=== PATIENT | female | born 1960 | race Caucasian/White ===

== ENCOUNTER → 2020-09-14 17:54 | Outpatient (CLI) | payer OTHER, SELFPAY ==
--- NOTE | ~2020-09-14 | MM_ITS ---
EXAMINATION: MM screening lidia BI w scarlet HISTORY: Screening mammogram TECHNIQUE: Craniocaudal and mediolateral oblique 3-D tomosynthesis images were obtained and synthetic 2-D images were generated. CAD analysis was submitted and interpreted. COMPARISON: 07/24/2019, 07/18/2018, 06/07/2017 bilateral digital screening mammogram examinations BREAST PARENCHYMAL COMPOSITION: There are scattered areas of fibroglandular density. FINDINGS: There is no evidence of suspicious mass, calcification, or architectural distortion to sugg est malignancy in either breast. There has been no suspicious interval change. IMPRESSION: 1. No mammographic evidence of malignancy. 2. Recommend routine screening mammography in one year. BI-RADS Category 1: Negative Reviewed, dictated and finalized at location B. 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
== END ==
PROVIDERS: PCP Internal Medicine; Visit Provider Obstetrics & Gynecology
DX: Z12.31 Encounter for screening mammogram for malignant neoplasm of breast (principal)
CPT/HCPCS: 77063; 77067

== ENCOUNTER 2021-09-24 01:11 | Day surgery (SDC) | payer BC, SELFPAY ==
[2021-09-11 13:00] VITALS: BMI 28.9
[2021-09-24 09:29] VITALS: BP 148/84; PULSE 96; RESP 20; TEMP 36.7; O2SAT 100; BMI 28.6
[2021-09-24] MEDS: LACTATED RINGERS 1,000 ML 150 ML IV CONT (09:37)
--- NOTE | 2021-09-24 09:42 | WPDANESEPPF ---
Anes - Initial Pre Proc Eval Procedure: Operation Date: 09/24/21 10:30 Proposed Procedures p Screening Colonoscopy - Tommy Cerda MD Date/Time: 09/24/21 09:42 Surgeon: Tommy Cerda MD Pre Op Diagnosis: family hx of colon ca, neoplasm screening Patient Data Age: 61 Gender: F Height: 1.63 m Weight: 75.8 kg Last Vital Signs Temp 36.7 C 09/24/21 09:29 Pulse 96 09/24/21 09:29 Resp 20 09/24/21 09:29 BP 148/84 H 09/24/21 09:29 Pulse Ox 100 09/24/21 09:29 Allergies Allergy/AdvReac Type Severity Reaction Status Date / Time Quinolones Allergy Unknown unknown Verified 09/24/21 09:28 sulfamethizole Allergy Unknown unknown Verified 09/24/21 09:28 Home Medications Medication Instructions Recorded Confirmed Type ibrutinib 420 mg tablet 420 mg PO DAILY 11/04/19 09/11/21 History fenofibrate nanocrystallized 145 145 mg PO DAILY #90 tablet 08/07/20 09/11/21 Rx mg tablet omeprazole 20 mg capsule,delayed 20 mg PO DAILY #90 cap 08/29/20 09/11/21 Rx release cholestyramine-aspartame 4 gram See Rx Instructions .ROUTE 08/10/21 09/11/21 Rx oral powder .COMPLEX #239.4 g lysine 500 mg tablet 500 mg PO DAILY 08/17/21 09/11/21 History lovastatin 40 mg tablet 40 mg PO DAILY #90 tablet 08/30/21 09/11/21 Rx azelastine 2 spray NASAL Q12H PRN 09/11/21 09/11/21 History loratadine [Claritin] 10 mg PO DAILY 09/11/21 09/11/21 History nitrofurantoin monohyd/m-cryst 100 mg PO DAILY PRN 09/11/21 09/11/21 History [Macrobid] Patient hx anesthesia problems: none Family hx anesthesia problems: none Results Review: All pre-operative results and documents have been reviewed as part of the pre-operative evaluation. [facility] Past Medical History Medical History Scoliosis (and kyphoscoliosis), idiopathic Surgical History Surgical History (Updated 09/24/21 @ 09:45 by Dylon Hernández MD) H/O ovarian cystectomy History of cholecystectomy History of lumbar surgery Family History Family History Sibling Family history of elevated blood lipids Mother Cerebrovascular accident Patient's mother is Father Family history of malignant neoplasm Carcinoma of colon Social History Social History Smoking status: Never smoker Alcohol intake: current Drinks per week: 1 Alcohol use details: 1-2 drinks monthly Substance use: never Substance use type: does not use Living arrangements: with family Spiritual care concerns: No Anes - Eval Final PreProcedure Day of Procedure 09/24/21 09:42 Patient weight: overweight Heart: regular rate and rhythm Lungs: clear to auscultation Airway: Mallampati scale class II Neurological: alert and oriented Last oral intake: >/= 8 hours ASA classification: III Anesthetic plan: proceed Anesthesia type and monitoring: general GIVS and standard monitoring Results Review: All pre-operative results and documents have been reviewed as part of the pre-operative evaluation. Informed Consent: The patient's anesthetic plan and its attendant risks and benefits were discussed with the patient/family/POA. Questions were solicited and answers provided to the satisfaction of the patient/family/POA.
--- NOTE | 2021-09-24 09:53 | WPDGICN ---
Assessment and Plan Assessment and plan (1) Family history of colon cancer in father: Code(s): Z80.0 - Family history of malignant neoplasm of digestive organs Status: Acute Assessment and Plan: Patient is 4 father had colon cancer. Anticipate follow-up colonoscopy at 5 year intervals in the future. (2) CLL (chronic lymphocytic leukemia): Code(s): C91.10 - Chronic lymphocytic leukemia of B-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 Status: Acute GI Consult Note Consult date/time: 09/24/21 09:53 HPI: Madisno Lazrao is a 61 year old female Presents for screening colonoscopy. Patient's current weight appetite and bowel movements are normal. She denies abdominal pain. She has had no bleeding. Family history is significant that her father had colon cancer. Patient has had several previous colonoscopies. Most recently [address] Trejo. Additionally patient currently is undergoing treatment for CLL and felt to be adequately treated but monitor by Oncology. Review of Systems Review of Systems: All systems reviewed & are unremarkable except as noted in HPI and below PMFSH Past Medical History Medical History (Updated 09/24/21 @ 09:55 by Tommy Cerda MD) Scoliosis (and kyphoscoliosis), idiopathic Surgical History Surgical History (Updated 09/24/21 @ 09:45 by Dylon Hernández MD) H/O ovarian cystectomy History of cholecystectomy History of lumbar surgery Family History Family History Sibling Family history of elevated blood lipids Mother Cerebrovascular accident Patient's mother is Father Family history of malignant neoplasm Carcinoma of colon Social History Social History Smoking status: Never smoker Alcohol intake: current Drinks per week: 1 Alcohol use details: 1-2 drinks monthly Substance use: never Substance use type: does not use Living arrangements: with family Spiritual care concerns: No Meds Home Medications and Allergies Home Medications Medication Instructions Recorded Confirmed Type ibrutinib 420 mg tablet 420 mg PO DAILY 11/04/19 09/11/21 History fenofibrate nanocrystallized 145 145 mg PO DAILY #90 tablet 08/07/20 09/11/21 Rx mg tablet omeprazole 20 mg capsule,delayed 20 mg PO DAILY #90 cap 08/29/20 09/11/21 Rx release cholestyramine-aspartame 4 gram See Rx Instructions .ROUTE 08/10/21 09/11/21 Rx oral powder .COMPLEX #239.4 g lysine 500 mg tablet 500 mg PO DAILY 08/17/21 09/11/21 History lovastatin 40 mg tablet 40 mg PO DAILY #90 tablet 08/30/21 09/11/21 Rx azelastine 2 spray NASAL Q12H PRN 09/11/21 09/11/21 History loratadine [Claritin] 10 mg PO DAILY 09/11/21 09/11/21 History nitrofurantoin monohyd/m-cryst 100 mg PO DAILY PRN 09/11/21 09/11/21 History [Macrobid] Allergies Allergy/AdvReac Type Severity Reaction Status Date / Time Quinolones Allergy Unknown unknown Verified 09/24/21 09:28 sulfamethizole Allergy Unknown unknown Verified 09/24/21 09:28 Vital Signs Vital Signs - 24 hr 09/24/21 09:29 Temperature 98.0 F Pulse Rate 96 Respiratory Rate 20 Blood Pressure 148/84 H Pulse Oximetry 100 Exam Narrative: Physical exam reveals patient to be alert. Vital signs stable. HEENT exam is unremarkable. Patient is anicteric. Lungs are clear to auscultation and percussion. Heart is without murmur or extra sounds. Abdominal exam bowel sounds are present soft nontender with no organomegaly. Digital external rectal exam is normal.
[2021-09-24 10:18] VITALS: BP 107/74; PULSE 80; RESP 22; O2SAT 100
[2021-09-24 10:28] VITALS: BP 123/61; PULSE 80; RESP 18; O2SAT 100
[2021-09-24 10:38] VITALS: BP 143/88; PULSE 72; RESP 18; O2SAT 100
== END 2021-09-24 10:52 | disposition home or self-care (01) ==
PROVIDERS: PCP Internal Medicine; Visit Provider Internal Medicine Gastroenterology
PROC: 0DJD8ZZ Inspection of Lower Intestinal Tract, Via Natural or Artificial Opening Endoscopic (ICD-10-PCS; CPT 45378; principal; 2021-09-24 10:30)
DX: Z12.11 Encounter for screening for malignant neoplasm of colon (principal); K64.8 Other hemorrhoids; Z80.0 Family history of malignant neoplasm of digestive organs; C91.10 Chronic lymphocytic leukemia of B-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
CPT/HCPCS: 45378; J2704; J7120

== ENCOUNTER → 2021-09-25 12:33 | Outpatient (CLI) | payer BC, SELFPAY ==
--- NOTE | ~2021-09-25 | MM_ITS ---
EXAMINATION: MM screening [facility] BI w scarlet HISTORY: Screening TECHNIQUE: Craniocaudal and mediolateral oblique 3-D tomosynthesis images were obtained and synthetic 2-D images were generated. CAD analysis was submitted and interpreted. COMPARISON: Comparison to multiple prior studies sequentially, with oldest reviewed study dated 04/2015. BREAST PARENCHYMAL COMPOSITION: There are scattered areas of fibroglandular density. FINDINGS: There is no evidence of suspicious mass, calcification, or architectural distortion to sugg est malignancy in either breast. There has been no suspicious interval change. IMPRESSION: 1. No mammographic evidence of malignancy. 2. Recommend routine screening mammography in one year. BI-RADS Category 1: Negative Reviewed, dictated and finalized at location A. 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
== END ==
PROVIDERS: PCP Internal Medicine; Visit Provider Obstetrics & Gynecology
DX: Z12.31 Encounter for screening mammogram for malignant neoplasm of breast (principal)
CPT/HCPCS: 77063; 77067

== ENCOUNTER 2022-01-31 11:05 | Outpatient (CLI) | payer BC, SELFPAY ==
--- NOTE | ~2022-01-31 | US_ITS ---
EXAMINATION: US soft tissue abdomen DATE: 01/31/2022 11:35 INDICATION: Chronic lymphocytic leukemia B-cell type in relapse. Right abdominal lump. TECHNIQUE: Multiple grayscale and Doppler ultrasound images of the abdomen were obtained. COMPARISON: CT abdomen and pelvis 06/12/2017 FINDINGS: There is no abnormal mass in the abdominal wall to the right of the umbilicus in the patien t's area of concern. IMPRESSION: 1. No abnormal mass in the abdominal wall to the right of the umbilicus in the patient's area of conc jose luis. Reviewed, dictated and finalized at location A. IMPRESSION: 1. No abnormal mass in the abdominal wall to the right of the umbilicus in the patient's area of concern.
== END 2022-01-31 11:06 | disposition home or self-care (01) ==
PROVIDERS: PCP Internal Medicine; Visit Provider Internal Medicine Medical Oncology
DX: C91.12 Chronic lymphocytic leukemia of B-cell type in relapse (principal)
CPT/HCPCS: 76705

== ENCOUNTER → 2022-03-13 12:29 | Outpatient (CLI) | payer BC, SELFPAY ==
--- NOTE | ~2022-03-13 | DEXA_ITS ---
Bone Density Report Name: MOI GRANT Age: 61 Sex: Female Ethnicity: White Date of : 1960 Indication: osteopenia; height loss; cancer; postmenopausal Referring Provider: Jeronimo, Ina Moody Study: Bone densitometry was performed. Exam Date: March 13, 2022 Accession number: [id number] Bone Density: Region BMD T-score Z-score Classification AP Spine (L1-L4) 0.927 -1.1 0.5 Osteopenia Femoral Neck (Left) 0.701 -1.3 0.1 Osteopenia Total Hip (Left) 0.745 -1.6 -0.5 Osteopenia Femoral Neck (Right) 0.712 -1.2 0.2 Osteopenia Total Hip (Right) 0.771 -1.4 -0.3 Osteopenia Total Hip Mean 0.758 -1.5 -0.4 Osteopenia World Health Organization criteria for BMD impression classify patients as: Normal (T-score at or above -1.0), Osteopenia (T-score between -1.0 and -2.5), or Osteoporosis (T-score at or below -2.5). 10-year Fracture Risk(1): Major Osteoporotic Fracture 7.8% Hip Fracture 0.6% Reported Risk Factors: [place] (), Neck BMD=0.701, BMI=30.6 (1) FRAX(R) Version 3.08. Fracture probability calculated for an untreated patient. Fracture probability may be lower if the patient has received treatment. Previous Exams: Region Exam Age BMD T-score BMD Change BMD Change Date g/cm2 vs Baseline vs Previous AP Spine(L1-L4) 03/13/2022 61 0.927 -1.1 -0.011 -0.011 05/22/2019 59 0.938 -1.0 Total Hip(Left) 03/13/2022 61 0.745 -1.6 -0.032* -0.032* 05/22/2019 59 0.778 -1.3 Total Hip(Right) 03/13/2022 61 0.771 -1.4 -0.029* -0.029* 05/22/2019 59 0.800 -1.2 *Denotes significance at 95% confidence level, LSC for AP Spine = 0.022 g/cm2, LSC for Total Hip = 0.027 g/cm2 Clinical Information Provided by Patient: Has used the following medications: Vitamin D, FANTASMAV Has the following medical conditions: Cancer, CLL Leukemia Patient maximum height was 64 Menopause Age: 48 No regular weight bearing exercise Drinks caffeinated beverages Onset of menses at age 11 Number of children 3 Impression: The patient has low bone mass, based on the Left Total Hip T-score. The patient has an estimated ten-year risk of hip fracture of 0.6% and an estimated ten-year risk of major fracture of 7.8%, based on the WHO FRAX algorithm. The BMD for the Total Hip(Left) decreased, changing by -0.032 since the last DXA exam. The BMD for the Total Hip(Right) decreased, changing by -0.029 since the last DXA exam.
== END ==
PROVIDERS: PCP Internal Medicine; Visit Provider Nurse Practitioner Obstetrics & Gynecology
DX: Z78.0 Asymptomatic menopausal state (principal); M85.88 Other specified disorders of bone density and structure, other site; M85.852 Other specified disorders of bone density and structure, left thigh; M85.851 Other specified disorders of bone density and structure, right thigh
CPT/HCPCS: 77080

== ENCOUNTER → 2023-01-28 11:16 | Outpatient (CLI) | payer BC, SELFPAY ==
--- NOTE | ~2023-01-28 | MM_ITS ---
EXAMINATION: MM screening lidia BI w scarlet HISTORY: Screening mammogram TECHNIQUE: Craniocaudal and mediolateral oblique 3-D tomosynthesis images were obtained and synthetic 2-D images were generated. CAD analysis was submitted and interpreted. COMPARISON: 09/17/2021 09/14/2026 BREAST PARENCHYMAL COMPOSITION: There are scattered areas of fibroglandular density. FINDINGS: No suspicious mass, calcification, or architectural distortion are identified in either noelle ast to suggest malignancy. There has been no suspicious interval change. IMPRESSION: 1. No mammographic evidence of malignancy. 2. Recommend routine screening mammography in one year. BI-RADS Category 1: Negative Reviewed, dictated and finalized at location A.
== END ==
PROVIDERS: PCP Family Medicine; Visit Provider Nurse Practitioner Obstetrics & Gynecology
DX: Z12.31 Encounter for screening mammogram for malignant neoplasm of breast (principal)
CPT/HCPCS: 77063; 77067

== ENCOUNTER 2023-03-28 14:39 | Outpatient (CLI) | payer BC, SELFPAY ==
[2023-03-28 15:24] LABS: Basophils Absolute Auto 0.1 K/mm3 (0.0-0.1); Basophils Percent Auto 0.7 % (0.2-1.2); Eosinophils Absolute Auto 0.1 K/mm3 (0-0.3); Eosinophils Percent Auto 1.1 % (0-4.4); Hematocrit 43.4 % (37.0-47.0); Hemoglobin 13.4 g/dL (12.0-15.0); Immature Granulocyte Absolute 0.06 K/mm3 (0.00-0.031); Immature Granulocyte Percent A 0.5 % (0-0.5); Lymphocytes Absolute Auto 3.06 K/mm3 (0.9-3.2); Lymphocytes Percent Auto 27.3 % (18.3-44.2); Mean Corpuscular HGB Conc 30.9 g/dl (32-36); Mean Corpuscular Hemoglobin 27.6 pg (26-34); Mean Corpuscular Volume 89.3 fl (80-100); Mean Platelet Volume 12.9 fl (7.4-10.4); Monocytes Percent Auto 8.7 % (2.6-8.5); Neutrophils Absolute Auto 6.9 K/mm3 (1.3-6.7); Neutrophils Percent Auto 61.7 % (45.5-73.1); Platelet Count Result 207 k/mm3 (150-375); Red Blood Count 4.86 M/mm3 (4.2-5.4); Red Cell Distribution Width 14.4 % (11.5-14.5); White Blood Count 11.2 K/mm3 (4.5-10.0)
[2023-03-28 16:06] LABS: D Dimer < 0.27 ug/mL (<0.48)
[2023-03-28 18:52] LABS: Alanine Aminotransferase 40 U/L (6-35); Albumin Level 4.6 g/dL (3.5-5.1); Alkaline Phosphatase 57 U/L (38-126); Anion Gap 7 mmol/L (8-16); Aspartate Amino Transferase 45 U/L (14-36); Bilirubin,Total 0.5 mg/dL (0.2-1.3); Blood Urea Nitrogen 13 mg/dL (7-17); Calcium 9.6 mg/dL (8.4-10.2); Carbon Dioxide 30 mmol/L (22-30); Chloride 105 mmol/L (98-107); Cholesterol 180 mg/dL (0-200); Estimated Glomerular Filt Rate > 60; Glucose 80 mg/dL (65-110); HDL Direct 69 mg/dL; Lipase 146 U/L (23-300); Sodium 142 mmol/L (137-145); Triglycerides 202 mg/dL (<150)
[2023-03-28 19:03] LABS: LDL Cholesterol Direct 86 mg/dL
== END 2023-03-28 14:40 | disposition home or self-care (01) ==
LOC: ANHGOSHLAB 14:40
PROVIDERS: PCP Family Medicine; Visit Provider Family Medicine
DX: R53.83 Other fatigue (principal); R11.10 Vomiting, unspecified; M79.89 Other specified soft tissue disorders; Z13.220 Encounter for screening for lipoid disorders; Z13.228 Encounter for screening for other metabolic disorders; Z13.29 Encounter for screening for other suspected endocrine disorder
CPT/HCPCS: 36415; 80053; 80061; 83690; 84443; 85025; 85380

== ENCOUNTER 2023-06-06 08:43 | Outpatient (NON) | payer BC, SELFPAY ==
[2023-06-12 18:53] LABS: Calprotectin, Stool 317 mcg/g
[2023-06-15 14:38] LABS: Pancreatic Elastase, Stool >500 mcg/g
== END 2023-06-06 08:44 | disposition home or self-care (01) ==
PROVIDERS: PCP Family Medicine; Visit Provider Nurse Practitioner Family
DX: R19.7 Diarrhea, unspecified (principal); R11.2 Nausea with vomiting, unspecified
CPT/HCPCS: 82653; 83993

== ENCOUNTER 2023-06-24 02:59 | Day surgery (SDC) | payer BC, SELFPAY ==
[2023-06-16 14:47] VITALS: BMI 26.5
[2023-06-24 12:40] VITALS: BP 176/79; PULSE 70; RESP 20; TEMP 36.3; O2SAT 100; BMI 25.7
--- NOTE | 2023-06-24 12:42 | WPDANESEPPF ---
Anes - Initial Pre Proc Eval Procedure: Operation Date: 06/24/23 13:30 Proposed Procedures p Esophagogastroduodenoscopy - Tommy Cerda MD Date/Time: 06/24/23 12:42 Surgeon: Tommy Cerda MD Pre Op Diagnosis: Gastro-esophageal reflux disease w/o esophagitis Patient Data Age: 63 Gender: F Height: 1.6 m Weight: 65.8 kg Last Vital Signs Temp 97.3 F L 06/24/23 12:40 Pulse 70 06/24/23 12:40 Resp 20 06/24/23 12:40 BP 176/79 H 06/24/23 12:40 Pulse Ox 100 06/24/23 12:40 O2 Del Method Room Air 06/24/23 12:40 Allergies Allergy/AdvReac Type Severity Reaction Status Date / Time Quinolones Allergy Intermediate Itching Verified 06/24/23 12:37 sulfamethizole Allergy Intermediate Nausea and Verified 06/24/23 12:37 Vomiting Home Medications Medication Instructions Recorded Confirmed Type ibrutinib 420 mg tablet (Imbruvica) 420 mg PO DAILY 11/04/19 06/16/23 History azelastine 137 mcg (0.1 %) nasal 2 spray intranasal Q12H PRN Nasal 09/11/21 06/16/23 History spray aerosol Congestion loratadine 10 mg tablet (Claritin) 10 mg PO DAILY 09/11/21 06/16/23 History fenofibrate nanocrystallized 145 145 mg PO DAILY #90 tabs 03/21/22 06/16/23 Rx mg tablet (Tricor) cholestyramine-aspartame 4 gram See Rx Instructions .Route 01/07/23 06/16/23 Rx oral powder (Cholestyramine Light) .COMPLEX #239.4 grams cholecalciferol (vitamin D3) 50 50 mcg PO DAILY 03/28/23 06/16/23 History mcg (2,000 unit) capsule multivitamin 1 tablet PO DAILY 03/28/23 06/16/23 History lovastatin 40 mg tablet 40 mg PO DAILY #90 tabs 04/11/23 06/16/23 Rx omeprazole 20 mg capsule,delayed 20 mg PO DAILY #90 caps 04/25/23 06/16/23 Rx release Patient hx anesthesia problems: none Family hx anesthesia problems: none Results Review: All pre-operative results and documents have been reviewed as part of the pre-operative evaluation. [facility] Past Medical History Medical History (Updated 06/16/23 @ 07:52 by Maribeth Love APRN) Elevated fecal calprotectin Nausea and vomiting Scoliosis (and kyphoscoliosis), idiopathic Surgical History Surgical History H/O ovarian cystectomy History of cholecystectomy History of lumbar surgery Family History Family History Sibling Family history of elevated blood lipids Mother Cerebrovascular accident Patient's mother is Father Family history of malignant neoplasm Carcinoma of colon Social History Social History Smoking status: Never smoker Alcohol intake: current Drinks per week: 1 Alcohol use details: 1-2 drinks monthly Substance use: never Substance use type: does not use Lack of Transportation: No Lack of Food: Never True Current Housing: I Have Housing Concerned About Future Housing: No Difficulty Paying Gas/Electric Bills: No Difficulty Paying for Meds: No Currently Unemployed: No Difficulty w/ Childcare or Family Care: No Living arrangements: with family Spiritual care concerns: No Anes - Eval Final PreProcedure Day of Procedure 06/24/23 12:42 Patient weight: normal Heart: regular rate and rhythm Lungs: clear to auscultation Airway: Mallampati scale class II Neurological: alert and oriented Last oral intake: >/= 8 hours ASA classification: III Emergent: no Anesthetic plan: proceed Anesthesia type and monitoring: general GIVS and standard monitoring Results Review: All pre-operative results and documents have been reviewed as part of the pre-operative evaluation. Informed Consent: The patient's anesthetic plan and its attendant risks and benefits were discussed with the patient/family/POA. Questions were solicited and answers provided to the satisfaction of the patient/family/POA.
--- NOTE | 2023-06-24 12:50 | WPDHPUPDATE1 ---
History and Physical Update Update Date/Time: 06/24/23 12:50 History and Physical has been reviewed, including an updated exam of the patient. There are NO changes in the patient's condition. Risks, benefits, and alternatives have been discussed and questions answered. Patient agrees to proceed with procedure.
[2023-06-24] MEDS: LACTATED RINGERS 1,000 ML 150 ML IV CONT (12:53)
[2023-06-24 14:40] VITALS: BP 116/80; PULSE 75; RESP 15; O2SAT 98
[2023-06-24 14:50] VITALS: BP 128/74; PULSE 71; RESP 24; O2SAT 98
[2023-06-24 15:12] VITALS: BP 131/79; PULSE 70; RESP 13; O2SAT 99
--- NOTE | 2023-06-24 15:34 | SUR.PHASEII ---
[address] Cerda prior to discharge
== END 2023-06-24 15:34 | disposition home or self-care (01) ==
PROVIDERS: PCP Family Medicine; Visit Provider Internal Medicine Gastroenterology
PROC: 0DJ08ZZ Inspection of Upper Intestinal Tract, Via Natural or Artificial Opening Endoscopic (ICD-10-PCS; CPT 43235; principal; 2023-06-24 13:30)
DX: Q39.4 Esophageal web (principal); K21.9 Gastro-esophageal reflux disease without esophagitis; R19.7 Diarrhea, unspecified; Z80.0 Family history of malignant neoplasm of digestive organs
CPT/HCPCS: 43450; 43239; 88305; J2001; J2704; J7120

== ENCOUNTER 2023-08-07 01:59 | Day surgery (SDC) | payer BC, SELFPAY ==
[2023-07-25 13:23] VITALS: BMI 25.4
--- NOTE | 2023-08-05 09:53 | SUR.PREOP ---
Patient called regarding upcoming procedure. Reviewed preop instructions, appointment times, and procedure prep.
[2023-08-07 07:07] VITALS: BP 156/75; PULSE 86; RESP 18; TEMP 36.2; O2SAT 99; BMI 25.9
[2023-08-07] MEDS: LACTATED RINGERS 1,000 ML 150 ML IV CONT (07:35)
--- NOTE | 2023-08-07 07:51 | PM.HPGS ---
History of Present Illness History of Present Illness Consent: Risks, benefits, and alternatives have been discussed and questions answered. Patient agrees to proceed with procedure. Chief complaint: Diarrhea, positive fecal calprotectin Narrative: Madison Lazaro is a 63 year old female Presents for colonoscopy. Patient reports intermittent diarrhea that may last for several hours. In the be normal for several months. She states she has had perhaps 8 or 9 episodes since the beginning of the year. There is no bleeding associated. On a few of these occasions she had associated vomiting. But this is not a consistent finding. Recent EGD was unremarkable. Patient referred for colonoscopy to assess more thoroughly. A fecal stool calprotectin level was noted to be elevated. Of uncertain significance. Review of Systems Review of Systems: Review of systems noncontributory. [facility] Past Medical History Medical History (Updated 08/07/23 @ 07:53 by Tommy Cerda MD) Elevated fecal calprotectin Nausea and vomiting Scoliosis (and kyphoscoliosis), idiopathic Surgical History Surgical History H/O ovarian cystectomy History of cholecystectomy History of lumbar surgery Family History Family History Sibling Family history of elevated blood lipids Mother Cerebrovascular accident Patient's mother is Father Family history of malignant neoplasm Carcinoma of colon Social History Social History Smoking status: Never smoker Alcohol intake: current Drinks per week: 1 Alcohol use details: 1-2 drinks monthly Substance use: never Substance use type: does not use Lack of Transportation: No Lack of Food: Never True Current Housing: I Have Housing Concerned About Future Housing: No Difficulty Paying Gas/Electric Bills: No Difficulty Paying for Meds: No Currently Unemployed: No Difficulty w/ Childcare or Family Care: No Living arrangements: with family Spiritual care concerns: No Meds Home Medications and Allergies Home Medications Medication Instructions Recorded Confirmed Type ibrutinib 420 mg tablet (Imbruvica) 420 mg PO DAILY 11/04/19 08/07/23 History azelastine 137 mcg (0.1 %) nasal 2 spray intranasal Q12H PRN Nasal 09/11/21 08/07/23 History spray aerosol Congestion loratadine 10 mg tablet (Claritin) 10 mg PO DAILY 09/11/21 08/07/23 History cholestyramine-aspartame 4 gram See Rx Instructions .Route 01/07/23 08/07/23 Rx oral powder (Cholestyramine Light) .COMPLEX #239.4 grams cholecalciferol (vitamin D3) 50 50 mcg PO DAILY 03/28/23 08/07/23 History mcg (2,000 unit) capsule multivitamin 1 tablet PO DAILY 03/28/23 08/07/23 History lovastatin 40 mg tablet 40 mg PO DAILY #90 tabs 04/11/23 08/07/23 Rx omeprazole 20 mg capsule,delayed 20 mg PO DAILY #90 caps 04/25/23 08/07/23 Rx release sodium,potassium,mag sulfates 17.5 See Rx Instructions PO .COMPLEX 06/26/23 08/07/23 Rx gram-3.13 gram-1.6 gram oral soln #354 mL (Suprep Bowel Prep Kit) fenofibrate nanocrystallized 145 145 mg PO DAILY #90 tabs 07/17/23 08/07/23 Rx mg tablet (Tricor) Allergies Allergy/AdvReac Type Severity Reaction Status Date / Time Quinolones Allergy Intermediate Itching Verified 08/07/23 07:17 sulfamethizole Allergy Intermediate Nausea and Verified 08/07/23 07:17 Vomiting Vital Signs Vital Signs - 24 hr 08/07/23 07:07 Temperature 97.2 F L Pulse Rate 86 Respiratory Rate 18 Blood Pressure 156/75 H Pulse Oximetry 99 Oxygen Delivery Room Air Exam Narrative: Physical exam reveals patient to be alert. Vital signs stable. HEENT exam is unremarkable. Patient is anicteric. Lungs are clear to auscultation and percussion. Heart is without murmur or extra sounds. Abdomen bowel soun
--- NOTE | 2023-08-07 08:18 | WPDANESEPPF ---
Anes - Initial Pre Proc Eval Procedure: Operation Date: 08/07/23 08:30 Proposed Procedures p Colonoscopy - Tommy Cerda MD Date/Time: 08/07/23 08:18 Surgeon: Tommy Cerda MD Pre Op Diagnosis: Diarrhea, positive fecal calprotectin Patient Data Age: 63 Gender: F Height: 1.6 m Weight: 66.3 kg Last Vital Signs Temp 36.2 C L 08/07/23 07:07 Pulse 86 08/07/23 07:07 Resp 18 08/07/23 07:07 BP 156/75 H 08/07/23 07:07 Pulse Ox 99 08/07/23 07:07 O2 Del Method Room Air 08/07/23 07:07 Allergies Allergy/AdvReac Type Severity Reaction Status Date / Time Quinolones Allergy Intermediate Itching Verified 08/07/23 07:17 sulfamethizole Allergy Intermediate Nausea and Verified 08/07/23 07:17 Vomiting Home Medications Medication Instructions Recorded Confirmed Type ibrutinib 420 mg tablet (Imbruvica) 420 mg PO DAILY 11/04/19 08/07/23 History azelastine 137 mcg (0.1 %) nasal 2 spray intranasal Q12H PRN Nasal 09/11/21 08/07/23 History spray aerosol Congestion loratadine 10 mg tablet (Claritin) 10 mg PO DAILY 09/11/21 08/07/23 History cholestyramine-aspartame 4 gram See Rx Instructions .Route 01/07/23 08/07/23 Rx oral powder (Cholestyramine Light) .COMPLEX #239.4 grams cholecalciferol (vitamin D3) 50 50 mcg PO DAILY 03/28/23 08/07/23 History mcg (2,000 unit) capsule multivitamin 1 tablet PO DAILY 03/28/23 08/07/23 History lovastatin 40 mg tablet 40 mg PO DAILY #90 tabs 04/11/23 08/07/23 Rx omeprazole 20 mg capsule,delayed 20 mg PO DAILY #90 caps 04/25/23 08/07/23 Rx release sodium,potassium,mag sulfates 17.5 See Rx Instructions PO .COMPLEX 06/26/23 08/07/23 Rx gram-3.13 gram-1.6 gram oral soln #354 mL (Suprep Bowel Prep Kit) fenofibrate nanocrystallized 145 145 mg PO DAILY #90 tabs 07/17/23 08/07/23 Rx mg tablet (Tricor) Patient hx anesthesia problems: none Family hx anesthesia problems: none Results Review: All pre-operative results and documents have been reviewed as part of the pre-operative evaluation. [facility] Past Medical History Medical History Elevated fecal calprotectin Nausea and vomiting Scoliosis (and kyphoscoliosis), idiopathic Surgical History Surgical History H/O ovarian cystectomy History of cholecystectomy History of lumbar surgery Family History Family History Sibling Family history of elevated blood lipids Mother Cerebrovascular accident Patient's mother is Father Family history of malignant neoplasm Carcinoma of colon Social History Social History Smoking status: Never smoker Alcohol intake: current Drinks per week: 1 Alcohol use details: 1-2 drinks monthly Substance use: never Substance use type: does not use Lack of Transportation: No Lack of Food: Never True Current Housing: I Have Housing Concerned About Future Housing: No Difficulty Paying Gas/Electric Bills: No Difficulty Paying for Meds: No Currently Unemployed: No Difficulty w/ Childcare or Family Care: No Living arrangements: with family Spiritual care concerns: No Anes - Eval Final PreProcedure Day of Procedure 08/07/23 08:18 Patient weight: normal Heart: regular rate and rhythm Lungs: clear to auscultation Airway: Mallampati scale class II Neurological: alert and oriented Last oral intake: >/= 8 hours ASA classification: III Emergent: no Anesthetic plan: proceed Anesthesia type and monitoring: general GIVS and standard monitoring Results Review: All pre-operative results and documents have been reviewed as part of the pre-operative evaluation. Informed Consent: The patient's anesthetic plan and its attendant risks and benefits were discussed with the patient/family/POA. Ques
[2023-08-07 09:02] VITALS: BP 115/65; PULSE 75; RESP 20; O2SAT 100
[2023-08-07 09:12] VITALS: BP 120/75; PULSE 75; RESP 18; O2SAT 100
[2023-08-07 09:22] VITALS: BP 135/70; PULSE 78; RESP 18; O2SAT 99
== END 2023-08-07 09:33 | disposition home or self-care (01) ==
PROVIDERS: PCP Family Medicine; Visit Provider Internal Medicine Gastroenterology
PROC: 0DJD8ZZ Inspection of Lower Intestinal Tract, Via Natural or Artificial Opening Endoscopic (ICD-10-PCS; CPT 45378; principal; 2023-08-07 08:30)
DX: K52.832 Lymphocytic colitis (principal); Z80.0 Family history of malignant neoplasm of digestive organs
CPT/HCPCS: 45380; 88305; J2704; J7120

== ENCOUNTER 2023-09-01 22:06 | Outpatient (NON) | payer BC, SELFPAY | END 2023-09-01 22:07 | disposition home or self-care (01) | LOC: ANHGOSHLAB 22:09 | PROVIDERS: PCP Family Medicine; Visit Provider Family Medicine | DX: R30.0 Dysuria (principal) | CPT/HCPCS: 87077; 87086; 87186 ==

== ENCOUNTER 2023-09-08 08:14 | Outpatient (CLI) | payer BC, SELFPAY ==
--- NOTE | ~2023-09-08 | XR_ITS ---
EXAMINATION: XR small bowel follow through DATE: 09/08/2023 13:01 INDICATION: Diarrhea. TECHNIQUE: Oral contrast was administered, and a time course of radiographs of the abdomen was obtain ed. Fluoroscopy of the small bowel was performed. Fluoroscopy exposure time was 0.1 minutes. The tota l number of images was 14. COMPARISON: None. FINDINGS: There are no dilated loops of bowel. There is no abnormal mass or stricture. The terminal ileum is no rmal. Transit time from the stomach to proximal colon was approximately 4 hours. Surgical clips in th e right upper quadrant are likely from cholecystectomy. IMPRESSION: 1. Normal small bowel series. Reviewed, dictated and finalized at location A. OMER ACCOUNTS ADVISOR
== END 2023-09-08 08:15 | disposition home or self-care (01) ==
PROVIDERS: PCP Family Medicine; Visit Provider Internal Medicine Gastroenterology
DX: R19.7 Diarrhea, unspecified (principal); K21.9 Gastro-esophageal reflux disease without esophagitis
CPT/HCPCS: 74250

== ENCOUNTER 2023-09-26 08:55 | Emergency (ER) | payer BC, SELFPAY ==
--- NOTE | ~2023-09-26 | XR_ITS ---
XR ankle LT min 3V 09/26/2023 09:20 Indication: Left ankle pain and swelling after fall Procedure: 4 views left ankle Comparison: No prior studies for comparison. Findings: There are curvilinear avulsion fracture superior margin of the calcaneus and cuboid, best s een on lateral view. Moderate lateral and anterior soft tissue swelling. Impression: 1: Avulsion fractures of the calcaneus and cuboid with associated soft tissue swelling. Reviewed, dictated and finalized at location A. SUPERVISOR Impression: 1: Avulsion fractures of the calcaneus and cuboid with associated soft tissue s welling.
--- NOTE | 2023-09-26 09:05 | ED.FALL ---
HPI - Fall General Chief Complaint: Extremity Injury, Lower Stated Complaint: Fall Time Seen by Provider: 09/26/23 09:05 Source: patient Mode of arrival: ambulatory Limitations: no limitations History of Present Illness HPI Narrative: Madison is a 63-year-old female patient presenting to the clinic today with complaints of a fall that injured her left ankle. She reports she twisted her ankle last night when her slipper got caught on the rug. States she felt as though she bent her ankle backwards. Is having pain to the lateral ankle it is radiating into the medial ankle. Related Data Home Medications Medication Instructions Recorded Confirmed ibrutinib 420 mg tablet (Imbruvica) 420 mg PO DAILY 11/04/19 09/26/23 azelastine 137 mcg (0.1 %) nasal 2 spray intranasal Q12H PRN Nasal 09/11/21 09/26/23 spray aerosol Congestion loratadine 10 mg tablet (Claritin) 10 mg PO DAILY 09/11/21 09/26/23 cholecalciferol (vitamin D3) 50 50 mcg PO DAILY 03/28/23 09/26/23 mcg (2,000 unit) capsule multivitamin 1 tablet PO DAILY 03/28/23 09/26/23 Allergies Allergy/AdvReac Type Severity Reaction Status Date / Time sulfamethizole AdvReac Intermediate Nausea and Verified 09/26/23 09:18 Vomiting Quinolones AdvReac Mild Itching Verified 09/26/23 09:18 Review of Systems Review of Systems: Pertinent positives per HPI. Patient denies any fever, chills, rash, headache, visual changes, dizziness, cough, runny nose, sore throat, shortness of breath, chest pain, palpitations, nausea, vomiting, diarrhea, constipation, abdominal pain, or any urinary issues. [facility] Past Medical History Medical History Elevated fecal calprotectin Esophageal web Nausea and vomiting Scoliosis (and kyphoscoliosis), idiopathic Surgical History Surgical History H/O ovarian cystectomy History of cholecystectomy History of lumbar surgery Family History Family History Sibling Family history of elevated blood lipids Mother Cerebrovascular accident Patient's mother is Father Family history of malignant neoplasm Carcinoma of colon Social History Social History Smoking status: Never smoker Alcohol intake: current Drinks per week: 1 Alcohol use details: 1-2 drinks monthly Substance use: never Substance use type: does not use Lack of Transportation: No Lack of Food: Never True Current Housing: I Have Housing Concerned About Future Housing: No Difficulty Paying Gas/Electric Bills: No Difficulty Paying for Meds: No Currently Unemployed: No Difficulty w/ Childcare or Family Care: No Living arrangements: with family Spiritual care concerns: No Comments At the time of my signature, I reviewed and agree with the nursing past medical, surgical, social, and family history. There is no relevant family history pertinent to the patient complaint. Exam Narrative: General: Well-developed, well nourished, in no apparent distress Head: Normocephalic, atraumatic. Cardio: Regular rate and rhythm, s1 and s2 normal, no murmur appreciated. Resp: Clear to auscultation bilaterally, no rhonchi, rales, wheezing or rubs. Musculoskeletal: No deformity, tender to palpation over the lateral malleolus and the medial malleolus, pain with plantar and dorsal flexion against resistance, grossly normal range of motion, muscle strength strong and equal, peripheral pulse strong, mild swelling noted, no cyanosis, normal gait and station Course Course Emergency Course: Portions of this record may have been created with voice recognition software. Level of Care: Express Care Visit Vital Signs Vital signs: Vital signs reviewed MDM - Fall MDM Narrative Medical decision making narrative: At
[2023-09-26 09:07] VITALS: BP 143/86; PULSE 76; RESP 16; TEMP 36.9; O2SAT 100
== END 2023-09-26 09:55 | disposition home or self-care (01) ==
PROVIDERS: Emergency Provider Nurse Practitioner Family; PCP Family Medicine
DX: S92.002A Unspecified fracture of left calcaneus, initial encounter for closed fracture (principal); S92.212A Displaced fracture of cuboid bone of left foot, initial encounter for closed fracture; W18.09XA Striking against other object with subsequent fall, initial encounter; M41.20 Other idiopathic scoliosis, site unspecified
CPT/HCPCS: 29515; 73610; 99214; G0463

== ENCOUNTER 2023-10-20 15:57 | Emergency (ER) | payer BC, SELFPAY ==
--- NOTE | 2023-10-20 16:05 | ED.FEMALEGU ---
HPI - Female Genitourinary General Chief complaint: Urogenital-Female Stated complaint: uti symptoms Time Seen by Provider: 10/20/23 16:04 Source: patient Mode of arrival: ambulatory Limitations: no limitations History of Present Illness HPI Narrative: Patient is a 63-year-old female that presents with 3 days of frequency, urgency, pelvic pressure and burning with urination. Also reports blood in urine on Friday. Patient states she had UTI a month ago and returned a few weeks later. Patient states she was put on Macrobid 09/01 and then Augmentin 10/07. Patient denies any fever, chills, low back pain. Does report vomiting and diarrhea which accompany UTI symptoms last time. MD elicited complaint: dysuria Related Data Home Medications Medication Instructions Recorded Confirmed ibrutinib 420 mg tablet (Imbruvica) 420 mg PO DAILY 11/04/19 10/20/23 loratadine 10 mg tablet (Claritin) 10 mg PO DAILY 09/11/21 10/20/23 cholecalciferol (vitamin D3) 50 50 mcg PO DAILY 03/28/23 10/20/23 mcg (2,000 unit) capsule multivitamin 1 tablet PO DAILY 03/28/23 10/20/23 budesonide 3 mg 3 mg PO DAILY 10/08/23 10/20/23 capsule,delayed,extended release Allergies Allergy/AdvReac Type Severity Reaction Status Date / Time Sulfa (Sulfonamide AdvReac Intermediate Diarrhea Verified 10/20/23 16:05 Antibiotics) sulfamethizole AdvReac Intermediate Nausea and Verified 10/20/23 16:04 Vomiting Quinolones AdvReac Mild Itching Verified 10/20/23 16:04 Review of Systems Review of Systems: All systems reviewed & are unremarkable except as noted in HPI and below Constitutional: Constitutional: Denies chills, Denies fever(s), Denies headache(s), Denies malaise and Denies weakness Eyes: Eyes: Denies change in vision, Denies eye discharge and Denies irritation ENT: Denies otalgia, Denies headache(s), Denies nasal congestion, Denies nasal discharge, Denies sinus pain and Denies sore throat Cardiovascular: Cardiovascular: Denies chest pain, Denies edema, Denies palpitations and Denies dyspnea Respiratory: Respiratory: Denies cough and Denies dyspnea Gastrointestinal: Gastrointestinal: Denies abdominal pain, Denies diarrhea, Denies nausea and Denies vomiting Genitourinary: Genitourinary: Reports hematuria, Reports nocturia, Reports dysuria, Denies flank pain and Reports urinary urgency Musculoskeletal: Musculoskeletal: Denies back pain and Denies numbness Integumentary/Breasts: Skin/Breast: Denies pruritus and Denies rash Neurologic: Denies headache(s), Denies numbness and Denies weakness Psychiatric: Psychiatric: Reports no additional psychiatric complaints Endocrine: Endocrine: Denies palpitations PMFSH Past Medical History Medical History Elevated fecal calprotectin Esophageal web Injury of left foot midfoot sprain August 2023 Nausea and vomiting Scoliosis (and kyphoscoliosis), idiopathic Surgical History Surgical History H/O ovarian cystectomy History of History of cholecystectomy History of lumbar surgery Family History Family History Sibling Family history of elevated blood lipids Mother Cerebrovascular accident Patient's mother is Father Family history of malignant neoplasm Carcinoma of colon Social History Social History Smoking status: Never smoker Alcohol intake: current Drinks per week: 1 Alcohol use details: 1-2 drinks monthly Substance use: never Substance use type: does not use Do You Feel Safe in your Home?: Yes Lack of Transportation: No Lack of Food: Never True Current Housing: I Have Housing Concerned About Future Housing: No Difficulty Paying Gas/Electric Bills: No Difficulty Paying for Meds: No Currently Unemployed: No
[2023-10-20 16:08] VITALS: BP 155/83; PULSE 80; RESP 18; TEMP 36.4; O2SAT 100
== END 2023-10-20 16:32 | disposition home or self-care (01) ==
PROVIDERS: Emergency Provider Nurse Practitioner Family; PCP Family Medicine
DX: N39.0 Urinary tract infection, site not specified (principal); B96.20 Unspecified Escherichia coli [E. coli] as the cause of diseases classified elsewhere
CPT/HCPCS: 81003; 87077; 87086; 87186; 99213; G0463

== ENCOUNTER 2023-10-30 13:31 | Outpatient (CLI) | payer BC, SELFPAY ==
[2023-10-30 15:31] LABS: Appearance Urine Clear (Clear); Bacteria Urine None Seen /hpf; Bilirubin Urine Negative (Negative); Color Urine Yellow (Yellow); Glucose Urine UA Negative (Negative); Ketones Urine Negative (Negative); Leukocyte Esterase Ur Trace LEU/UL (Negative); Nitrate Urine Negative (Negative); Non Pathogenic Casts 0-2; Protein Urine Negative (Negative); RBC Urine 0-2 /hpf (0-2); Specific Grav Ur 1.006 (1.001-1.035); Squamous Epithelial Cell Urine None seen /hpf (Few); Urobilinogen Urine 0.2 mg/dL (<2.0); WBC Urine 0-5 /hpf
[2023-10-30 15:34] LABS: Add Urine Microscopic? YES
== END 2023-10-30 13:32 | disposition home or self-care (01) ==
LOC: ANHLAB 13:32
PROVIDERS: PCP Family Medicine; Visit Provider Family Medicine
DX: R30.0 Dysuria (principal)
CPT/HCPCS: 81001

== ENCOUNTER 2023-12-03 09:15 | Outpatient (RCR) | payer BC, SELFPAY ==
--- NOTE | 2023-11-12 09:11 | PTOPEVAL1 ---
Assessment and note entered by Miguelangel Pugh Evaluation Information Assessment Status Evaluation Diagnosis left mid foot injury, left foot pain Onset 09/25/23 Subjective Information Pt. reports that she tripped falling forward and twisted the left foot. She describes pain on the top of the foot and slightly lateral. She states that pain is not constant, and is mostly noted with weight bearing. She reports that she notices pain with going down steps, but has been doing stairs one step at a time. She is able to complete all work related duties, but has to sit most of the day. She reports that pain can also be more noticeable with standing in one position. She reports that she is doing all household activities just with pain. She enjoys playing pickleball but has been unable since the injury. She also enjoys long walks, but has not walked long since the initial injury. She reports that her goal is to decrease her left foot pain with standing activities. Reported Pain Level Pain Score 2: Self Report Assessment PT Clinical Summary Pt. is a 63 year old female who enters the clinic after a mid foot/ankle injury. She presents with impaired left ankle ROM, impaired strength, impaired gait and pain. Continued skilled PT is indicated in order to improve these areas to allow the pt. to be able to complete all IADL's without limitation. Plan of Care Interventions Electrical Stimulation,Gait Training,Hot Pack/Cold Pack,Manual Therapy,Neuro Re-education,Patient/ Caregiver Educati,Therapeutic Activities, Therapeutic Exercise PT Services Indicated Yes Treatment Frequency and 2x/week x 6 visits Duration These treatments will address the objective and functional deficits as defined above. The patient will be advanced safely and appropriately in order for the patient to progress towards his/her prior level of function. Additional exercises will be introduced and as well as a comprehensive home exercise program upon discharge, if needed, ?to ensure carryover of functional gains achieved in the clinic. This treatment plan has been reviewed and agreement upon by the patient.
--- NOTE | 2023-12-03 10:22 | PTOPDC ---
Assessment and note entered by Miguelangel Pugh Discharge Information Assessment Status Discharge Diagnosis left midfoot injury, left foot pain Onset 09/25/23 Subjective Information Pt. reports she is no longer experiencing pain. She has not attempted to play pickleball due to poor weather, but feels she would not be limited at this time. She reports that she will continue with exercise and is ready for discharge. Reported Pain Level Pain Score 0: Self Report Assessment PT Clinical Summary Pt. has met the majority of goals established at the initial evaluation. She presents with 2.5% limitation on the LEFS. She is encouraged to continue with her HEP and is ready for discharge at this time. Plan of Care PT Services Indicated No
== END 2023-12-03 11:08 | disposition home or self-care (01) ==
LOC: ANHPT 09:15
PROVIDERS: PCP Family Medicine; Visit Provider Orthopaedic Surgery
DX: S99.922D Unspecified injury of left foot, subsequent encounter (principal)
CPT/HCPCS: 97035; 97110; 97140; 97161; 97530

== ENCOUNTER 2024-01-20 17:40 | Outpatient (CLI) | payer BC, SELFPAY | END 2024-01-20 17:41 | disposition home or self-care (01) | LOC: ANHLAB 17:41 | PROVIDERS: PCP Family Medicine; Visit Provider Nurse Practitioner Family | DX: R19.7 Diarrhea, unspecified (principal) | CPT/HCPCS: 87045; 87177; 87209; 87427; 87449; 87493 ==

== ENCOUNTER 2024-01-28 19:07 | Emergency (ER) | payer BC, SELFPAY ==
[2024-01-28 19:21] VITALS: BP 144/77; PULSE 89; RESP 18; TEMP 36.3; O2SAT 97
--- NOTE | 2024-01-28 19:36 | ED.FEMALEGU ---
HPI - Female Genitourinary General Chief complaint: Urogenital-Female Stated complaint: UTI Symptoms Time Seen by Provider: 01/28/24 19:37 Source: patient Mode of arrival: ambulatory Limitations: no limitations History of Present Illness HPI Narrative: 63 yo F presents with c/o urinary frequency, urgency, dysuria starting this afternoon. hx of multiple UTIs. On cipro in November, keflex and augmentin in . Denies N/V. Afebrile. All systems reviewed and negative except as noted above. Related Data Home Medications Medication Instructions Recorded Confirmed ibrutinib 420 mg tablet (Imbruvica) 420 mg PO DAILY 11/04/19 12/17/23 loratadine 10 mg tablet (Claritin) 10 mg PO DAILY 09/11/21 12/17/23 cholecalciferol (vitamin D3) 50 50 mcg PO DAILY 03/28/23 12/17/23 mcg (2,000 unit) capsule multivitamin 1 tablet PO DAILY 03/28/23 12/17/23 budesonide 3 mg mg PO 01/28/24 capsule,delayed,extended release Allergies Allergy/AdvReac Type Severity Reaction Status Date / Time levofloxacin [From Levaquin] Allergy Rash Verified 01/28/24 19:24 Sulfa (Sulfonamide AdvReac Intermediate Diarrhea Verified 01/28/24 19:24 Antibiotics) sulfamethizole AdvReac Intermediate Nausea and Verified 01/28/24 19:24 Vomiting Quinolones AdvReac Mild Itching Verified 01/28/24 19:24 Review of Systems Review of Systems: CONSTITUTIONAL: Denies fever, chills, or sweats. EYES: Denies visual changes, redness, or discharge. ENT: Denies rhinorrhea, congestion, sore throat, or otalgia. CARDIOVASCULAR: Denies chest pain, palpitations, or edema. RESPIRATORY: Denies cough or dyspnea. GASTROINTESTINAL: Denies abdominal pain, nausea, vomiting, or diarrhea. GENITOURINARY:Reports dysuria , urgency, frequency. Denies hematuria. SKIN: Denies rash or itching. MUSCULOSKELETAL: Denies back pain, joint pain, or myalgia. NEUROLOGIC: Denies headache, numbness, or weakness. PSYCHIATRIC: Denies anxiety or depression. All other systems reviewed are negative, except as documented in HPI. [facility] Past Medical History Medical History Elevated fecal calprotectin Esophageal web Injury of left foot midfoot sprain August 2023 Nausea and vomiting Scoliosis (and kyphoscoliosis), idiopathic Surgical History Surgical History H/O ovarian cystectomy History of History of cholecystectomy History of lumbar surgery Family History Family History Sibling Family history of elevated blood lipids Mother Cerebrovascular accident Patient's mother is Father Family history of malignant neoplasm Carcinoma of colon Social History Social History Smoking status: Never smoker Alcohol intake: current Drinks per week: 1 Alcohol use details: 1-2 drinks monthly Substance use: never Substance use type: does not use Do You Feel Safe in your Home?: Yes Lack of Transportation: No Lack of Food: Never True Current Housing: I Have Housing Concerned About Future Housing: No Difficulty Paying Gas/Electric Bills: No Difficulty Paying for Meds: No Currently Unemployed: No Education: Associate Degree Difficulty w/ Childcare or Family Care: No Living arrangements: with family Occupation/Education: occupation 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 There is no relevant family history pertinent to the presenting complaint. Exam Narrative: GENERAL: This is a well-nourished, well-developed patient, in no apparent distress. HEAD: normocephalic, atraumatic. EYES: PERRL. Sclera clear/white. Vision is grossly intact. EARS: External ears normal NOSE: Tip Puncher
== END 2024-01-28 20:06 | disposition home or self-care (01) ==
PROVIDERS: Emergency Provider Nurse Practitioner Family; PCP Family Medicine
DX: N39.0 Urinary tract infection, site not specified (principal); M41.9 Scoliosis, unspecified
CPT/HCPCS: 81003; 87086; 99213; G0463

== ENCOUNTER 2024-03-25 08:40 | Outpatient (CLI) | payer BC, SELFPAY ==
[2024-03-25 18:58] LABS: Alanine Aminotransferase 18 U/L (6-35); Albumin Level 4.2 g/dL (3.5-5.1); Alkaline Phosphatase 52 U/L (38-126); Anion Gap 5 mmol/L (4-12); Aspartate Amino Transferase 50 U/L (14-36); Bilirubin,Total 0.6 mg/dL (0.2-1.3); Blood Urea Nitrogen 11 mg/dL (7-17); Calcium 9.2 mg/dL (8.4-10.2); Carbon Dioxide 31 mmol/L (22-30); Chloride 106 mmol/L (98-107); Cholesterol 138 mg/dL (0-200); Estimated Glomerular Filt Rate > 60; Glucose 67 mg/dL (65-110); HDL Direct 68 mg/dL; Potassium 3.7 mmol/L (3.4-5.0); Sodium 142 mmol/L (137-145); Triglycerides 105 mg/dL (<150)
[2024-03-25 19:08] LABS: LDL Cholesterol Direct 61 mg/dL
== END 2024-03-25 08:41 | disposition home or self-care (01) ==
LOC: ANHGOSHLAB 08:42
PROVIDERS: PCP Family Medicine; Visit Provider Family Medicine
DX: E78.2 Mixed hyperlipidemia (principal); Z13.29 Encounter for screening for other suspected endocrine disorder; Z13.228 Encounter for screening for other metabolic disorders
CPT/HCPCS: 36415; 80053; 80061; 84443

== ENCOUNTER 2024-05-01 09:26 | Outpatient (CLI) | payer BC, SELFPAY ==
--- NOTE | ~2024-05-01 | MM_ITS ---
EXAMINATION: MM screening [facility] BI w scarlet HISTORY: Screening mammogram TECHNIQUE: Craniocaudal and mediolateral oblique 3-D tomosynthesis images were obtained and synthetic 2-D images were generated. CAD analysis was submitted and interpreted. COMPARISON: 02/15/2023, 09/17/2021, 09/14/2020 BREAST PARENCHYMAL COMPOSITION:Not Dense. There are scattered areas of fibroglandular density. FINDINGS: No suspicious mass, calcification, or architectural distortion are identified in either noelle ast to suggest malignancy. There has been no suspicious interval change. IMPRESSION: No mammographic evidence of malignancy. Recommend routine screening mammography in one year. BI-RADS Category 1: Negative Reviewed, dictated and finalized at location .
== END 2024-05-01 09:27 ==
PROVIDERS: PCP Family Medicine; Visit Provider Obstetrics & Gynecology
DX: Z12.31 Encounter for screening mammogram for malignant neoplasm of breast (principal)
CPT/HCPCS: 77063; 77067

== ENCOUNTER 2024-05-12 13:30 | Outpatient (CLI) | payer BC, SELFPAY ==
--- NOTE | 2024-05-12 13:35 | ECHO_ITS ---
Patient Info Name: Madison Lazaro Age: 64 years : 1960 Gender: Female Ht: 62 in Wt: 143 lbs BSA: 1.70 m2 HR: 94 bpm BP: 136 / 74 mmHg Heart Rhythm: Sinus Rhythm Technical Quality: Good Exam Date: 05/12/2024 1:45 PM Exam Location: Echo Lab Patient Status: Outpatient Admit Date: 05/12/2024 Staff Ordering Physician: Stefan Heller DO Punch Press Operator: Lalita Huizar RDCS Attending Provider: Stefan Heller DO Referring Physician: Arron ALEXANDER; Exam Type: CA echo doppler color flow Study Info Indications R06.09 - Other forms of dyspnea Complete two-dimensional, color flow and Doppler transthoracic echocardiogram is performed. Summary 1. Complete two-dimensional, color flow and Doppler transthoracic echocardiogram is performed. 2. Left ventricular chamber dimension is normal. 3. Left ventricular systolic function is normal, estimated at 65-70%. 4. The left ventricular diastolic function is grade I diastolic dysfunction. 5. E/e' 13 is mildly elevated. 6. There is trace tricuspid valve regurgitation. 7. No pulmonary hypertension, estimated pulmonary arterial systolic pressure is 22 mmHg. Left Ventricle E/e' 13 is mildly elevated. Left ventricular chamber dimension is normal. Left ventricular systolic function is normal, estimated at 65-70%. The left ventricular diastolic function is grade I diastolic dysfunction. Right Ventricle Right ventricular systolic function is normal and with normal TAPSE 2.1 cm. Right ventricular chamber dimension is normal. Left Atria Left atrial chamber dimension is normal. Right Atria Right atrial chamber dimension is normal. Aortic Valve The aortic valve is trileaflet. There is no aortic valve stenosis. There is no aortic valve regurgitation. Pulmonic Valve There is no pulmonic regurgitation. Mitral Valve There is no mitral valve stenosis. There is no mitral valve regurgitation. Tricuspid Valve There is trace tricuspid valve regurgitation. No pulmonary hypertension, estimated pulmonary arterial systolic pressure is 22 mmHg. Pericardium/Pleural There is no pericardial effusion. Inferior Vena Cava Normal inferior vena cava with >50% collapse upon inspiration consistent with normal right atrial pressure, 5 mmHg. Aorta The aortic root size at the sinus of Valsalva is normal. Left Ventricular Outflow Tract Name Value Normal LVOT 2D LVOT Diameter 2.0 cm LVOT Doppler LVOT Peak Gradient 4 mmHg LVOT Mean Gradient 2 mmHg LVOT VTI 21 cm LVOT VTI/AV VTI Ratio 0.8 LVOT Stroke Volume 65 ml LVOT CO 4.9 l/min LVOT CI 2.9 l/min/m2 Pulmonic Valve Name Value Normal RVOT Doppler RVOT Peak Gradient 2 mmHg PV Doppler
== END 2024-05-12 13:31 | disposition home or self-care (01) ==
PROVIDERS: PCP Family Medicine; Visit Provider Family Medicine
DX: R06.09 Other forms of dyspnea (principal)
CPT/HCPCS: 93306

== ENCOUNTER 2024-06-07 12:32 | Outpatient (CLI) | payer BC, SELFPAY ==
--- NOTE | ~2024-06-07 | US_ITS ---
EXAMINATION: US venous doppler [facility] DATE: 06/07/2024 14:00 INDICATION: Lower limb edema TECHNIQUE: Grayscale ultrasound images without and with compression and Doppler ultrasound images of the bilateral lower extremity veins were obtained. COMPARISON: None. FINDINGS: The visualized portions of right common femoral vein, profunda (deep) femoral vein, femoral vein, pop liteal vein, posterior tibial veins, peroneal veins, gastrocnemius vein and greater saphenous vein ou tflow are patent. The visualized portions of left common femoral vein, profunda femoral vein, femoral vein, popliteal v ein, posterior tibial veins, peroneal veins, gastrocnemius vein and greater saphenous vein outflow ar e patent. 4.1 x 2.5 x 1.3 cm Pryor's cyst at the left popliteal fossa. IMPRESSION: 1. No deep venous thrombosis in either lower limb. 2. Moderate-sized Pryor's cyst at the left popliteal fossa. Reviewed, dictated and finalized at location B.
== END 2024-06-07 12:33 | disposition home or self-care (01) ==
PROVIDERS: PCP Family Medicine; Visit Provider Internal Medicine
DX: M71.22 Synovial cyst of popliteal space [Baker], left knee (principal); R60.0 Localized edema
CPT/HCPCS: 93970

== ENCOUNTER 2024-10-11 09:28 | Outpatient (CLI) | payer BC, SELFPAY ==
--- NOTE | ~2024-10-11 | DEXA_ITS ---
Bone Density Report Name: MOI GRANT Age: 64 Sex: Female Ethnicity: White Date of : 1960 Indication: postmenopausal; screening for osteoporosis; height loss; cancer; Referring Provider: LIZZETTE, DOUG Coulter Study: Bone densitometry was performed. Exam Date: October 11, 2024 Accession number: [id number] Bone Density: Region BMD T-score Z-score Classification AP Spine(L1-L4) 0.886 -1.5 0.3 Osteopenia Femoral Neck (Left) 0.657 -1.7 -0.2 Osteopenia Total Hip (Left) 0.743 -1.6 -0.4 Osteopenia Femoral Neck (Right) 0.683 -1.5 0.0 Osteopenia Total Hip (Right) 0.778 -1.3 -0.1 Osteopenia Total Hip Mean 0.761 -1.5 -0.3 Osteopenia World Health Organization criteria for BMD impression classify patients as: Normal (T-score at or above -1.0), Osteopenia (T-score between -1.0 and -2.5), or Osteoporosis (T-score at or below -2.5). 10-year Fracture Risk(1): Major Osteoporotic Fracture 9.7% Hip Fracture 1.2% Reported Risk Factors: [place] (), Neck BMD=0.657, BMI=27.2 (1) FRAX(R) Version 3.08. Fracture probability calculated for an untreated patient. Fracture probability may be lower if the patient has received treatment. Clinical Information Provided by Patient: Has used the following medications: Vitamin D Has the following medical conditions: Cancer Patient maximum height was 63.5 Menopause Age: 48 Onset of menses at age 11 Number of children 3 Impression: The patient has low bone mass, based on the Left Femoral Neck T-score. The patient has an estimated ten-year risk of hip fracture of 1.2% and an estimated ten-year risk of major fracture of 9.7%, based on the WHO FRAX algorithm. Discussion: BONE DENSITY IS LOW AT ONE OR MORE SKELETAL SITES. This patient's lowest T-score is low at one or more skeletal sites. It meets the World Health Organization's (WHO) criteria for ?low bone mass? (T-score between -1.0 and -2.5). The patient's 10-year risk of fracture as calculated by FRAX is less than the threshold where pharmacological therapy is recommended by the National Osteoporosis Foundation (NOF). However, all treatment decisions require clinical judgment and consideration of individual patient factors, including patient preferences, comorbidities, previous drug use, risk factors not captured in the FRAX model (e.g., frailty, falls, vitamin D deficiency, increased bone turnover, interval significant decline in bone density) and possible under or overestimation of fracture risk by FRAX. The patient should follow a healthful lifestyle (good nutrition with adequate calcium and vitamin D, and appropriate weight-bearing exercise). Follow-Up: Consider repeating this study in 2 to 3 years to reassess this patient's status, or sooner if there is some new clinical indication. Reported by: OLIVER on 10/11/2024 10:13:00 AM. Reviewed, dictated and finalized at location [facility]
== END 2024-10-11 09:29 | disposition home or self-care (01) ==
LOC: ANHIMG 09:35
PROVIDERS: PCP Family Medicine; Visit Provider Nurse Practitioner
DX: Z13.820 Encounter for screening for osteoporosis (principal); M85.88 Other specified disorders of bone density and structure, other site; M85.852 Other specified disorders of bone density and structure, left thigh; M85.851 Other specified disorders of bone density and structure, right thigh
CPT/HCPCS: 77080

== ENCOUNTER 2025-01-29 08:53 | Emergency (ER) | payer BC, SELFPAY ==
--- NOTE | 2025-01-29 08:54 | ED.URI ---
HPI - URI/Sore Throat General Chief Complaint: Upper Respiratory Infection Stated Complaint: sinus infection Time Seen by Provider: 01/29/25 08:53 Source: patient Mode of arrival: ambulatory Limitations: no limitations History of Present Illness HPI Narrative: patient is a 64-year-old female who presents with over 1 week of sinus congestion , sinus pressure, cough, sneezing, watery eyes. Patient has been taking daily Claritin that she thought it was just her allergies. Denies any fever, chills, nausea, vomiting, diarrhea. patient is currently undergoing treatment for leukemia. Related Data Home Medications ?Medication ?Instructions ?Recorded ?Confirmed ?Last Taken ?Type loratadine 10 mg tablet (Claritin) 10 mg PO DAILY 09/11/21 01/29/25 06/23/23 History cholecalciferol (vitamin D3) 50 50 mcg PO DAILY 03/28/23 01/29/25 06/23/23 History mcg (2,000 unit) capsule multivitamin 1 tablet PO DAILY 03/28/23 01/29/25 06/23/23 History allopurinol 300 mg tablet 300 mg PO DAILY 08/03/24 01/29/25 Unknown History venetoclax 100 mg tablet 100 mg PO Q24H 08/03/24 01/29/25 Unknown History (Venclexta) Allergies Allergy/AdvReac Type Severity Reaction Status Date / Time levofloxacin (From Levaquin) Allergy Rash Verified 01/29/25 08:55 Sulfa (Sulfonamide AdvReac Intermediate Diarrhea Verified 01/29/25 08:55 Antibiotics) sulfamethizole AdvReac Intermediate Nausea and Verified 01/29/25 08:55 Vomiting Quinolones AdvReac Mild Itching Verified 01/29/25 08:55 Review of Systems Review of Systems: All systems reviewed & are unremarkable except as noted in HPI and below Constitutional: Constitutional: Denies chills, Denies fatigue, Denies fever(s), Denies headache(s), Denies malaise and Denies weakness Eyes: Eyes: Denies blurry vision, Reports itchy eyes and Denies loss of vision ENT: Denies otalgia, Denies headache(s), Reports nasal congestion, Denies sinus pain, Reports sinus pressure and Denies sore throat Cardiovascular: Cardiovascular: Denies chest pain, Denies irregular heart rhythm and Denies dyspnea Respiratory: Respiratory: Reports cough and Denies dyspnea Gastrointestinal: Gastrointestinal: Denies abdominal pain, Denies diarrhea, Denies nausea and Denies vomiting Musculoskeletal: Musculoskeletal: Denies back pain, Denies myalgias and Denies arthralgias Integumentary/Breasts: Skin/Breast: Denies pruritus and Denies rash Neurologic: Denies headache(s), Denies loss of vision and Denies weakness Psychiatric: Psychiatric: Reports no additional psychiatric complaints Endocrine: Endocrine: Denies fatigue Allergic/Immunologic: Allergic/Immunologic: Denies itchy eyes PMFSH Past Medical History Medical History Injury of left foot midfoot sprain August 2023 Esophageal web Elevated fecal calprotectin Nausea and vomiting Scoliosis (and kyphoscoliosis), idiopathic Surgical History Surgical History History of History of lumbar surgery History of cholecystectomy H/O ovarian cystectomy Family History Family History Sibling Family history of elevated blood lipids Mother Cerebrovascular accident Patient's mother is Father Family history of malignant neoplasm Carcinoma of colon Social History Social History Smoking status: Never smoker Alcohol intake: current Drinks per week: 1 Alcohol use details: 1-2 drinks monthly Substance use: never Substance use type: does not use Do You Feel Safe in your Home?: Yes Lack of Transportation: No Lack of Food: Never True Current Housing: I Have Housing Concerned About Future Housing: No Difficulty Paying Gas/Electric Bills: No Difficulty Paying for Meds: No Currently Unemployed: No Education: Associate Degree Difficulty w/ Childcare or Family Care: No Living arrangements: with family Occupation/Education: occupation 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 There is no relevant family history pertinent to the presenting complaint. Exam Const: General: cooperative, healthy appearing, comfortable, no acute distress and well nourished Nutritional Appearance: well nourished Orientation/consciousness: patient oriented x3 Limitations: no limitations HENMT: Head: normal to inspection, normocephalic and atraumatic Ears: hearing grossly normal bilaterally, external ears normal, TM's normal bilaterally, EAC's normal and no periauricular adenopathy Face/Nose/Sinus: Normal external nose present, Abnormal mucous membranes and turbinates present erythematous bilateral and diffuse, normal facial exam, face symmetric and Facial tenderness on exam of face and sinuses Face and sinus: normal facial exam and face symmetric Mouth: Yes Normal oral and palatal mucosa present, Yes lip normal, Yes tongue normal, Yes Normal salivary glands and ducts present, Yes oropharynx normal and Yes moist mucous membranes Teeth and gingiva: dentition normal Throat: posterior oropharynx normal, tonsils normal and uvula midline Eyes: General: appearance normal, both eyes and all related structures Alignment and Position: alignment normal and position normal Periorbital: periorbital findings normal Eyelids: eyelids normal Pupils: Equal, round and reactive pupils present Neck: Neck: normal visual inspection, full ROM, no lymphadenopathy and supple Chest: Chest palpation & inspection: normal inspection of the chest and normal palpation of entire chest wall Resp: Effort & Inspection: normal respiratory effort and able to speak in complete sentences Auscultation: clear to auscultation bilaterally, no crackles, no rales, no rhonchi and no wheezes Cardio: Rate: regular rate Rhythm: regular rhythm Heart sounds: S1 normal heart sound present and S2 normal heart sound present GI: Inspection: normal to inspection Skin: General skin exam: normal color and no rashes or lesions noted Neuro: General: patient oriented x3 and moves all extremities Cranial nerves: Yes Equal, round and reactive pupils present Speech: normal speech Gait exam (Neuro): Normal gait present Extrem: General: normal to inspection, full ROM and no edema Psych: Appearance: grossly normal and well kempt Mental Status: mental status grossly normal Speech and movement: Normal speech and movement present Affect: normal affect Attitude: cooperative Thought process: Normal thought process present Course Course Emergency Course: Discharge instructions reviewed with patient, as well as provided in writing per nursing staff. The instructions also include specific and strict return/GO TO THE ER as well as f/u information. All questions have been answered, and the patient deny any further questions with discharge and discharge plan. Portions of this record may have been created with voice recognition software Level of Care: Express Care Visit Vital Signs Vital signs: Reviewed MDM - URI/Sore Throat MDM Narrative Medical decision making narrative: Pt well hydrated appearing, in no respiratory distress, hemodynamically stable. Recommend supportive care. The patient is stable at time of discharge the clinical impression was discussed and the patient was given the opportunity to ask questions, which were addressed as completely as possible given the information available at present. Anticipatory guidance and return to care precautions were discussed and the importance of primary care follow-up was stressed and encouraged. The patient voiced understanding of the plan, indications to return, and the need for follow-up. Exam findings show no acute concerns or changes Patient is appropriate for outpatient treatment and follow-up. Differential diagnosis considered: Márquez virus, strep pharyngitis, allergic rhinitis, upper respiratory tract infection, sinusitis, rhinosinusitis, nasopharyngitis. viral pharyngitis, otitis media, otitis externa, otitis effusion, foreign body, cerumen impaction, viral syndrome, and influenza.? Medical Records Attestation: I reviewed the patient's medical records. Discharge Plan Discharge Clinical Impression: Sinusitis Qualifiers: Sinusitis location: maxillary Chronicity: acute Recurrence: non-recurrent Qualified Code(s): J01.00 - Acute maxillary sinusitis, unspecified Patient Disposition: Home Condition: Stable Instructions: Sinusitis (ED) Additional Instructions: take antibiotics as prescribed. Switch to either Zyrtec or [place] Symptomatic treatment of a sinus infection aims to relieve symptoms. These treatments do not shorten the duration of illness. Nonprescription pain medications, such as acetaminophen (eg, Tylenol) or ibuprofen (eg, Motrin, Advil), are recommended for pain. Flushing the nose and sinuses with a saline solution several times per day has been proven to decrease pain associated with congestion and shorten the duration of symptoms. Nasal steroids (such as Flonase, 2 sprays in each nostril daily) can help to reduce swelling inside the nose, usually within two to three days. These drugs have few side effects and relieve symptoms in most people. Oral decongestants (pseudoephedrine and phenylephrine) may be helpful if you have associated symptoms of ear pain or fullness. Nasal decongestant sprays, including oxymetazoline (Afrin) and phenylephrine (Farhat-Synephrine), can be used to temporarily treat congestion. However, these sprays should not be used for more than two to three days due to the risk of rebound congestion (when the nose becomes congested constantly unless the medication is used repeatedly), possible addiction, and long-term consequences of frequent use, including persistent nasal dryness and crusting, which is very difficult to treat once it has developed. Medications to thin secretions (such as guaifenesin) may help to clear mucus. Please follow-up with your primary care doctor in the next 1-2 days. If you cannot follow-up with your primary care doctor please go to the ED for any urgent issues. If you have any worsening of symptoms or any other concerns please go to the ED immediately. Patient Language: Sinhala Prescriptions: New fluticasone propionate [Flonase Allergy Relief] 50 mcg/actuation spray,suspension 1 spray intranasal DAILY Qty: 16 0RF Rx Instructions: administer into each nostril amoxicillin-pot clavulanate 875-125 mg tablet 1 tablet PO Q12H 10 Days Qty: 20 0RF No Action cholecalciferol (vitamin D3) 50 mcg (2,000 unit) capsule 50 mcg PO DAILY multivitamin Tablet 1 tablet PO DAILY Venclexta 100 mg tablet 100 mg PO Q24H allopurinol 300 mg tablet 300 mg PO DAILY colestipol 1 gram tablet 1 g PO BID 90 Days Qty: 180 3RF loratadine [Claritin] 10 mg Tablet 10 mg PO DAILY fenofibrate nanocrystallized [Tricor] 145 mg tablet 145 mg PO DAILY Qty: 90 1RF azelastine 137 mcg (0.1 %) spray,non-aerosol 2 spray NASAL Q12H PRN (Reason: Nasal Congestion) Qty: 30 1RF Rx Instructions: administer into each nostril omeprazole 20 mg capsule,delayed release(DR/EC) 20 mg PO DAILY Qty: 90 1RF lovastatin 40 mg tablet See Rx Instructions .ROUTE .COMPLEX Qty: 90 0RF Dose Instruction: TAKE 1 TABLET BY MOUTH EVERY DAY Rx Instructions: TAKE 1 TABLET BY MOUTH EVERY DAY Follow-up/Referrals: Francisco Beverly MD [Physician] - 3 Days ([facility] care) Time of Disposition: 09:10
[2025-01-29 09:01] VITALS: BP 143/77; PULSE 103; RESP 16; TEMP 36.4; O2SAT 98
--- OUTSIDE RECORDS SUMMARY | 2025-01-29 15:58 | XMS_ITS | Continuity of Care Document ---
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 [address] , [address], [place], [address], [place]. tel:[phone] Family History Family Member Type Diagnosis Age At Onset No Information Payers Payer name Insurance type Covered alliance party ID Authoriza tion(s) [employer] SOI CI [id number] Social History Type Description Quantity Date Captured [...]
--- OUTSIDE RECORDS SUMMARY | 2025-01-29 15:58 | XMS_ITS | Data Portability ---
Author Organization 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 Patient will come back in a year unless there are new symptoms. Not available 11/14/2021 17:30:07 01/07/2023 01/07/2023 Annual gynecological exam performed. Patient will come back in a year unless there are new symptoms. Not available 01/07/2023 13:59:34 04/21/2024 04/21/2024 Annual gynecological exam performed. Patient will come back in a year unless there are new symptoms. Not available 04/21/2024 12:26:12 Plan of Treatment Reminders Order Date Submit Date Provider Last Modified By Organization Details Last Modified Time Details Appointments None recorded. Lab urinalysis, dipstick 2024 025 [email or web address], [address], [place], [address], 5 10:04:49 culture, urine 2024 025 [facility] (Lab), [address], [place], [address], 5 22:43:05 urinalysis, dipstick 2024 025 [email or web address], [address], [place], [address], 5 12:30:09 culture, urine 2024 025 [facility] (Lab), [address], [place], [address], 5 03:00:14 Referral None recorded. Procedures None recorded. Surgeries None recorded. Imaging DEXA, axial skeleton + vertebral fracture assessment 2023 024 [facility], [address], [place], [address], 5 01:57:04 MAMMO, screening, bilateral 2022 023 [facility], [address], [place], [address], 3 07:51:48 DEXA, axial skeleton + vertebral fracture assessment 2021 022 [facility], [address], [place], [address], 2 11:16:57 Medication Orders Macrobid 100 mg capsule 2024 025 [facility] [id number], [place], [address], 5 10:30:37 Macrobid 100 mg capsule 2024 025 [facility] [id number], [place], [address], 5 09:53:19 Patient TargetsNo targets recorded. Patient InstructionsNo instructions recorded. Reason for Referral None Reported. 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 Atrop hic cell verito lyons. Elect munira fulton kyle d by Dilcia valente, Jorje blair, CT on 2021 at 6:27 AM ----- ----- ----- ----- ----- ----- ----- ----- ----- ----- ----- ----- ----- ----- ----- ----- ----- ---- HPV RESUL TS: HPV mRNA E6/E7 : No HPV mRNA Detec katerine NOTE: This high risk HPV mRNA assay detec ts fourt een high- risk HPV types (16, 18, 31, 33, 35, 39, 45, 51, 52, 56, 58, 59, 66, 68) witho ut diffe renti ation . COMME NT: Note: This speci men was revie wed by a Cytot echno logis t and/o r Patho logis t (as indic ated in this repor t) after evalu ation using the Thinp rep Imagi ng Syste m. CLINI MARKELL INFOR MATIO N: Menst rual Statu s: LMP (if appli cable ): Clini markell Histo ry/Pr eviou s Pap: Type of Neopl miguel (if appli cable ): Signi fican t Clini markell Findi ngs: Other Histo ry: Hormo romana (if appli cable ): PAP EDUCA YAIR L NOTE: The Pap Test is a scree antoinette test with an inher ent false negat cooper rate. Liqui d-bas ed sampl ing may decre ase, but will not elimi shea, false negat cooper resul ts. A negat cooper resul t does not precl ude the prese nce and/o r devel opmen t of disea se, since the prese nce of abnor mal cells in the sampl e depen ds on the locat ion of the lesio n and sampl ing techn ique. Liborio nued regul ar scree antoinette is the best metho d of cance r preve ntion . If repor katerine cytol ogic findi ng do not corre late with physi markell and/o r histo rical findi ngs, furth er inves tigat ion is recom terri d, as clini coral warra nted. Not Available 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 Atrop hic cell verito rn. Elect munira fulton kyle d by Gabriela Moody on 2022 at 5:35 PM ----- ----- ----- ----- ----- ----- ----- ----- ----- ----- ----- ----- ----- ----- ----- ----- ----- ---- HPV RESUL TS: HPV mRNA E6/E7 : No HPV mRNA Detec katerine NOTE: This high risk HPV mRNA assay detec ts fourt een high- risk HPV types (16, 18, 31, 33, 35, 39, 45, 51, 52, 56, 58, 59, 66, 68) witho ut diffe renti ation . COMME NT: This speci men was revie wed by a Cytot echno logis t and/o r Patho logis t (as indic ated in this repor t) after evalu ation using the Thinp rep Imagi ng Syste m. CLINI MARKELL INFOR MATIO N: Menst rual Statu s: LMP (if appli cable ): Clini markell Histo ry/Pr eviou s Pap: Type of Neopl miguel (if appli cable ): Signi fican t Clini markell Findi ngs: Other Histo ry: Hormo romana (if appli cable ): PAP EDUCA YAIR L NOTE: The Pap Test is a scree antoinette test with an inher ent false negat cooper rate. Liqui d-bas ed sampl ing may decre ase, but will not elimi shea, false negat cooper resul ts. A negat cooper resul t does not precl ude the prese nce and/o r devel opmen t of disea se, since the prese nce of abnor mal cells in the sampl e depen ds on the locat ion of the lesio n and sampl ing techn ique. Liborio nued regul ar scree antoinette is the best metho d of cance r preve ntion . If repor katerine cytol ogic findi ng do not corre late with physi markell and/o r histo rical findi ngs, furth er inves tigat ion is recom terri d, as clini coral silveira nted. Not Available [facility] (Lab) [address], [place], [address], 01/09/2023 18:38:53 04/21/20 24 04/21/2024 IMAGE GUIDE D PAP AND HPV REGAR DLESS image guided Pap, HPV regardless of Pap result SEE RESULT S BELOW CASE REPOR T: Cytol ogy Gynec ologi markell Repor t Case: [id number] Autho viet anthony Provi cristhian: Olivia Singh, MAR [place] cted: 04/21 1205 Order ing Locat ion: [place] Patho logy Recei riya: 04/22 0101 First Jason n: Gabriela Moody Speci men: Jason curry Pap - Image d, Cervi x STATE MENT OF ADEQU ACY: Satis facto ry for evalu ation Trans forma tion zone compo nent prese nt ----- ----- ----- ----- ----- ----- ----- ----- ----- ----- ----- ----- ----- ----- ----- ----- ----- ---- FINAL DIAGN OSIS: Negat cooper for Intra epith elial Dom valladares or Gurinder oviedo (NIL) . Atrop hy prese nt Elect munira bob by Gabriela Moody on 2023 at 2:02 PM ----- ----- ----- ----- ----- ----- ----- ----- ----- ----- ----- ----- ----- ----- ----- ----- ----- ---- HPV RESUL TS: HPV mRNA E6/E7 : No HPV mRNA Detec katerine NOTE: This high risk HPV mRNA assay detec ts fourt een high- risk HPV types (16, 18, 31, 33, 35, 39, 45, 51, 52, 56, 58, 59, 66, 68) witho ut diffe renti ation . COMME NT: This speci men was revie wed by a Cytot echno logis t and/o r Patho logis t (as indic ated in this repor t) after evalu ation using the Thinp rep Imagi ng Syste m. CLINI MARKELL INFOR MATIO N: Menst rual Statu s: LMP (if appli cable ): Clini markell Histo ry/Pr eviou s Pap: Type of Neopl miguel (if appli cable ): Signi fican t Clini markell Findi ngs: Other Histo ry: Hormo romana (if appli cable ): PAP EDUCA YAIR L NOTE: The Pap Test is a scree antoinette test with an inher ent false negat cooper rate. Liqui d-bas ed sampl ing may decre ase, but will not elimi shea, false negat cooper resul ts. A negat cooper resul t does not precl ude the prese nce and/o r devel opmen t of disea se, since the prese nce of abnor mal cells in the sampl e depen ds on the locat ion of the lesio n and sampl ing techn ique. Liborio nued regul ar scree antoinette is the best metho d of cance r preve ntion . If repor katerine cytol ogic findi ng do not corre late with physi markell and/o r histo rical findi ngs, furth er inves tigat ion is recom terri d, as woody silveira nted. Not Available [facility] (Lab) [address], [place], [address], 04/27/2024 15:06:07 10/13/19 25 10/13/2024 CULTU RE: URINE result report SEE RESULT S BELOW Test: Cultu re: Urine Speci men Sourc e: Urine - Clean Catch Speci men Type: Urine Speci men Date: 2024 1140 Resul t Date: 2024 0155 Resul t Statu s: Final resul t Abnor mal: No Resul nikkog Lab: [facility] [address] [facility] [id number] Tel: CULTU RE ----- ----- ----- --- Cultu re resul t (>=3 organ isms prese nt) indic ates possi ble conta minat ion. Repea t cultu re if sympt oms indic ate. Not Available [facility] (Lab) [address], [place], [address], 10/15/2024 03:00:14 10/13/19 25 10/13/2024 urina lysis , dipst ick Leukocytes ++ Not Available [facility] [address], [place], [address], 10/13/2024 12:15:23 10/13/19 25 10/13/2024 urina lysis , dipst ick Nitrite + Not Available [facility] [address], [place], [address], 10/13/2024 12:15:23 10/13/19 25 10/13/2024 urina lysis , dipst ick Urobilinogen - Not Available [facility] [address], [place], [address], 10/13/2024 12:15:23 10/13/19 25 10/13/2024 urina lysis , dipst ick Protein trace Not Available [place] [address], [place], [address], 10/13/2024 12:15:23 10/13/19 25 10/13/2024 urina lysis , dipst ick pH 8 Not Available [place] [address], [place], [address], 10/13/2024 12:15:23 10/13/19 25 10/13/2024 urina lysis , dipst ick Blood ++ Not Available [place] [address], [place], [address], 10/13/2024 12:15:23 10/13/19 25 10/13/2024 urina lysis , dipst ick Specific [place] 1.010 [facility] Available [facility] [address], [place], [address], 10/13/2024 12:15:23 10/13/19 25 10/13/2024 urina lysis , dipst ick Ketone - Not Available [place] [address], [place], [address], 10/13/2024 12:15:23 10/13/19 25 10/13/2024 urina lysis , dipst ick Bilirubin - Not Available [facility] sue [address], [place], [address], 10/13/2024 12:15:23 10/13/19 25 10/13/2024 urina lysis , dipst ick Glucose - Not Available [place] [address], [place], [address], 10/13/2024 12:15:23 10/13/19 25 10/13/2024 urina lysis , dipst ick Appearance cloudy Not Available [facility] akin [address], [place], [address], 10/13/2024 12:15:23 10/13/19 25 10/13/2024 urina lysis , dipst ick Color light yellow Not Available [place] [address], [place], [address], 10/13/2024 12:15:23 10/27/19 25 10/27/2024 CBC W/DIF F WBC 7.6 10'3/ uL 3.5-[address] [facility] (Lab) [address], [place], [address], 10/28/2024 05:45:08 10/27/1910/27/2024 CBC W/DIF F RBC 4.66 10'6/ uL (based on docume nted legal sex) 3.80-[address] [facility] (Lab) [address], [place], [address], 10/28/2024 05:45:08 10/27/1910/27/2024 CBC W/DIF F HGB 13.3 g/dL (based on docume nted legal sex) 11.6-[address] [facility] (Lab) [address], [place], [address], 10/28/2024 05:45:08 10/27/19 25 10/27/2024 CBC W/DIF F HCT 42.2 % (based on docume nted legal sex) 34.0-[address] [facility] (Lab) [address], [place], [address], 10/28/2024 05:45:08 10/27/1910/27/2024 CBC W/DIF F MCV 90.6 fL 80.0-[address] [facility] (Lab) [address], [place], [address], 10/28/2024 05:45:08 10/27/1910/27/2024 CBC W/DIF F MCH 28.5 pg 27.0-[address] [facility] (Lab) [address], [place], [address], 10/28/2024 05:45:08 10/27/1910/27/2024 CBC W/DIF F MCHC 31.5 g/dL 32.0-3 [address] [facility] (Lab) [address], [place], [address], 10/28/2024 05:45:08 10/27/19 25 10/27/2024 CBC W/DIF F RDW 15.6 % 11.0-1 [address] [facility] (Lab) [address], [place], [address], 10/28/2024 05:45:08 10/27/19 25 10/27/2024 CBC W/DIF F plt 223 10'3/ uL 150-[address] [facility] (Lab) [address], [place], [address], 10/28/2024 05:45:08 10/27/19 25 10/27/2024 CBC W/DIF F MPV 10.4 fL 8.8-[address] [facility] (Lab) [address], [place], [address], 10/28/2024 05:45:08 10/27/19 25 10/27/2024 CBC W/DIF F neutrophils 69.1 % 34.0-[address] [facility] (Lab) [address], [place], [address], 10/28/2024 05:45:08 10/27/19 25 10/27/2024 CBC W/DIF F lymphocytes 20.0 % 15.0-[address] [facility] (Lab) [address], [place], [address], 10/28/2024 05:45:08 10/27/19 25 10/27/2024 CBC W/DIF F monocytes 9.6 % 1.0-[address] [facility] (Lab) [address] [place], [address], 10/28/2024 05:45:08 10/27/19 25 10/27/2024 CBC W/DIF F eosinophils 0.0 % 0.0-8. [address] [facility] (Lab) [address], [place], [address], 10/28/2024 05:45:08 10/27/1910/27/2024 CBC W/DIF F basophils 0.3 % 0.0-2. [address] [facility] (Lab) [address], [place], [address], 10/28/2024 05:45:08 10/27/1910/27/2024 CBC W/DIF F immature granulocytes 1.0 % no define d refere nce range Immat ure Granu locyt es (IG) repre sents autom ated enume ratio n of Metam yeloc ytes, Myelo cytes and Promy elocy andreia when IG is < 5%. Blast s are not inclu ded in IG and repor katerine separ ately if prese nt. Not Available [facility] (Lab) [address], [place], [address], 10/28/2024 05:45:08 10/27/1910/27/2024 CBC W/DIF F absolute neutrophils 5.3 10'3/ uL 1.5-8. [address] [facility] (Lab) [address], [place], [address], 10/28/2024 05:45:08 10/27/1910/27/2024 CBC W/DIF F absolute lymphocytes 1.5 10'3/ uL 1.0-4. [address] [facility] (Lab) [address], [place], [address], 10/28/2024 05:45:08 10/27/1910/27/2024 CBC W/DIF F absolute monocytes 0.7 10'3/ uL 0.2-1. [address] [facility] (Lab) [address], [place], [address], 10/28/2024 05:45:08 10/27/1910/2710/27/2024 CBC W/DIF F absolute eosinophils 0.0 10'3/ uL 0.0-0. [address] [facility] (Lab) [address], [place], [address], 10/28/2024 05:45:08 10/27/19 25 10/27/2024 CBC W/DIF F absolute basophils 0.0 10'3/ uL 0.0-0. [address] [facility] (Lab) [address], [place], [address], 10/28/2024 05:45:08 10/27/19 25 10/27/2024 CBC W/DIF F absolute immature granulocytes 0.1 10'3/ uL 0.00-0 .10 Refer ence range s for nonbi nary/ inter sex or unspe cifie d gende r patie nts have not been estab lishe d. Pleas e refer to the [facility] table for range s estab lishe d for cisge nder patie nts and evalu ate in the clini markell teresa xt of the indiv idual patie nt: https ://la bhand book. nm.or g/Gen derX Not Available [facility] (Lab) [address], [place], [address], 10/28/2024 05:45:08 10/27/19 25 10/27/2024 HEMOG LOBIN A1C hemoglobin A1C 5.5 % 4.0-5. 6 The Ameri can Diabe andreia Assoc iatio n recom mends that a prima ry goal of thera py lu d be a HBA1C of < 7% and that physi cians shoul d reeva luate the treat ment regim en in patie nts with HBA1C value s consi stent ly > 8%. <5.7% Leni l 5.7 - 6.4% Incre ased risk for diabe andreia >=6.5 % Diagn ostic of diabe andreia <7.0% Goal of thera py >8.0% Actio n sugge sted Not Available [facility] (Lab) [address], [place], [address], 10/28/2024 05:45:09 10/27/19 25 10/27/2024 CMP(C OMPRE HENSI VE METAB OLIC PANEL ) sodium 144 mmol/ L 133-[address] [facility] (Lab) [address], [place], [address], 10/28/2024 05:45:09 10/27/19 25 10/27/2024 CMP(C OMPRE HENSI VE METAB OLIC PANEL ) potassium 4.3 mmol/ L 3.5-5. [address] [facility] (Lab) [address], [place], [address], 10/28/2024 05:45:09 10/27/19 25 10/27/2024 CMP(C OMPRE HENSI VE METAB OLIC PANEL ) chloride 104 mmol/ L 98-[address] [facility] (Lab) [address], [place], [address], 10/28/2024 05:45:09 10/27/19 25 10/27/2024 CMP(C OMPRE HENSI VE METAB OLIC PANEL ) carbon dioxide 29 mmol/ L 21-[address] [facility] (Lab) [address], [place], [address], 10/28/2024 05:45:09 10/27/19 25 10/27/2024 CMP(C OMPRE HENSI VE METAB OLIC PANEL ) anion gap 11 mmol/ L 4-[address] [facility] (Lab) [address], [place], [address], 10/28/2024 05:45:09 10/27/19 25 10/27/2024 CMP(C OMPRE HENSI VE METAB OLIC PANEL ) blood urea nitrogen 17 mg/dL 7-25 Not Available [facility] (Lab) [address], [place], [address], 10/28/2024 05:45:09 10/27/19 25 10/27/2024 CMP(C OMPRE HENSI VE METAB OLIC PANEL ) creatinine 0.75 mg/dL 0.60-[address] [facility] (Lab) [address], [place], [address], 10/28/2024 05:45:09 10/27/19 25 10/27/2024 CMP(C OMPRE HENSI VE METAB OLIC PANEL ) egfrcr (CKD-epi 2020) 88 mL/mi n/1.7 3_m2 >=[address] [facility] (Lab) [address], [place], [address], 10/28/2024 05:45:09 10/27/1910/27/2024 CMP(C OMPRE HENSI VE METAB OLIC PANEL ) calcium 9.5 mg/dL 8.3-[address] [facility] (Lab) [address], [place], [address], 10/28/2024 05:45:09 10/27/1910/27/2024 CMP(C OMPRE HENSI VE METAB OLIC PANEL ) glucose 81 mg/dL 70-[address] [facility] (Lab) [address], [place], [address], 10/28/2024 05:45:09 10/27/1910/27/2024 CMP(C OMPRE HENSI VE METAB OLIC PANEL ) protein, total 6.8 g/dL 6.4-8. [address] [facility] (Lab) [address], [place], [address], 10/28/2024 05:45:09 10/27/1910/27/2024 CMP(C OMPRE HENSI VE METAB OLIC PANEL ) albumin 4.7 g/dL 3.5-5. [address] [facility] (Lab) [address], [place], [address], 10/28/2024 05:45:09 10/27/19 10/27/2024 CMP(C OMPRE HENSI VE METAB OLIC PANEL ) ALT 18 units /L 9-[address] [facility] (Lab) [address] [place], [address], 10/28/2024 05:45:09 10/27/1910/27/2024 CMP(C OMPRE HENSI VE METAB OLIC PANEL ) alkaline phosphatase 53 units /L 34-[address] [facility] (Lab) [address] [place], [address], 10/28/2024 05:45:09 10/27/1910/27/2024 CMP(C OMPRE HENSI VE METAB OLIC PANEL ) AST 19 units /L 13-[address] [facility] (Lab) [address], [place], [address], 10/28/2024 05:45:09 10/27/1910/27/2024 CMP(C OMPRE HENSI VE METAB OLIC PANEL ) bilirubin, total 0.5 mg/dL 0.2-1. [address] [facility] (Lab) [address] [place], [address], 10/28/2024 05:45:09 10/27/1910/27/2024 LIPID PANEL ,AMA (LDL- CALC) total cholesterol 222 mg/dL 0-199 high Not Available [facility] (Lab) [address] [place], [address], 10/28/2024 05:45:10 10/27/1910/27/2024 LIPID PANEL ,AMA (LDL- CALC) triglyceride s 125 mg/dL 0-150 NCEP Refer ence Value s for Trigl yceri nanette: Leni l: <150 mg/dL Borde rline High: 150 - 199 mg/dL High: 200 - 499 mg/dL Very High: >/= 500 mg/dL Not Available [facility] (Lab) [address] [place], [address], 10/28/2024 05:45:10 10/27/19 25 10/27/2024 LIPID PANEL ,AMA (LDL- CALC) HDL cholesterol 65 mg/dL >40 Not Available [facility] (Lab) [address] [place], [address], 10/28/2024 05:45:10 10/27/19 25 10/27/2024 LIPID PANEL ,AMA (LDL- CALC) LDL cholesterol 133 mg/dL 0-99 high Cutof f value s recom terri d by the Natio nal Arelis stero l Educa tion Progr am: CELINA ABLE: Arelis stero l <200 mg/dL LDL <100 mg/dL BORDE RLINE : Arelis stero l 200-2 39 mg/dL LDL 101-1 59 mg/dL HIGHE R RISK: Arelis stero l >240 mg/dL LDL >160 mg/dL , HDL <40 mg/dL Not Available [facility] (Lab) [address] [place], [address], 10/28/2024 05:45:10 10/27/19 25 10/27/2024 LIPID PANEL ,AMA (LDL- CALC) non-HDL cholesterol 157 mg/dL no refere nce range A reaso nable goal for non-H DL arelis stero l is one that is 30 mg/dL highe r than the LDL arelis stero l goal. Not Available [facility] (Lab) [address] [place], [address], 10/28/2024 05:45:10 10/27/1910/27/2024 LIPID PANEL ,AMA (LDL- CALC) chol/HDL ratio 3.4 . 0.0-5. 0 On January 21, 2023, [facility] labor atori mariela arias ed the equat ion for calcu latin g estim ated low-d ensit y lipop rotei n-cho leste rol (LDL- C) from the Fried seun equat ion to the Griselda valladares/Sharri bentley equat ion. This new equat ion is only valid for lipid panel s with trigl yceri nanette < 400 mg/dL . Libiai es have demon nathan ed that this new equat ion will impro ve the accur acy of LDL-C , espec ially in scena benoit when LDL-C melba ntrat ions are relat ively low (< 100 mg/dL ), trigl yceri nanette are eleva katerine, or patie nt is non-f astin g. Refer ences : - Griselda valladares, Rachid Belcher, Kt Vincent , Juan Carlos delgado, Nabil Hammer, Nabil delcid, Federico Feng. [facility] , and Cordell Hinkle . 2013. Comp ariso n of a Novel Metho d vs the Fried seun Equat ion for Estim ating Low-D ensit y Lipop rotei n Arelis stero l Level s from the Stand mandie Lipid Profcurtis gerardo. BJORN: The Journ al of the Ameri can Medic al Assoc iatio n 310 (19): 2060- . - Dayo baltazar V, Belen J, Robina baltazar A, Tutu M, Eduardo e R, Tory baltazar E, [facility] RS, Manan SR, Griselda valladares SS. Fast ing Versu s Nonfa sting and Low-D ensit y Lipop rotei n Arelis stero l Accur acy. Circu latio n. 2017Sep 30;137 (1):1 0-19. Not Available [facility] ([facility]) [address] [place], [address], 10/28/2024 05:45:10 10/27/19 25 10/27/2024 TSH, REFLE X FREE T4 TSH 1.58 uIU/m L 0.30-[address] [facility] (Lab) [address] [place], [address], 10/28/2024 05:45:10 10/27/19 25 10/27/2024 VITAM IN D, 25-OH (TOTA L D2/D3 ) vitamin D, 25-hydroxy, total 31.3 NG/mL 30.0-1 00.0 Sugge stive of Defic iency : <20 ng/mL Sugge stive of Insuf ficie ncy: 20-29 ng/mL Sugge stive of Suffi cienc y: 30-10 0 ng/mL Sugge stive of Toxic ity: >150 ng/mL Not Available [facility] (Lab) [address] [facility], [place], [address], 10/28/2024 05:45:10 11/09/1911/09/2024 CULTU RE: URINE result report SEE RESULT S BELOW Test: Cultu re: Urine Speci men Sourc e: Urine - Clean Catch Speci men Type: Urine Speci men Date: 2024 1050 Resul t Date: 20240 Resul t Statu s: Final resul t Abnor mal: No Resul ting Lab: [facility] [address] [facility] [id number] Tel: CULTU RE ----- ----- ----- --- No growt h in 1 day (dete ction level of 10,00 0 colon ies / ml.) Not Available [facility] (Lab) [address] , [place], [address], 11/10/2024 22:43:05 11/09/19 25 11/09/2024 urina lysis , dipst ick Leukocytes + Not Available Janina gerardo [address], [place], [address], 11/09/2024 09:55:20 11/09/1911/09/2024 urina lysis , dipst ick Nitrite - Not Available [place] [address], [place], [address], 11/09/2024 09:55:20 11/09/19 25 11/09/2024 urina lysis , dipst ick Urobilinogen - Not Available Micah hurt [address], [place], [address], 11/09/2024 09:55:20 11/09/19 25 11/09/2024 urina lysis , dipst ick Protein trace Not Available [place] [address], [place], [address], 11/09/2024 09:55:20 11/09/19 25 11/09/2024 urina lysis , dipst ick pH 7 Not Available [place] [address], [place], [address], 11/09/2024 09:55:20 11/09/19 25 11/09/2024 urina lysis , dipst ick Blood trace Not Available [place] [address], [place], [address], 11/09/2024 09:55:20 11/09/19 25 11/09/2024 urina lysis , dipst ick Specific [place] 1.010 Not Available [facility] [address], [place], [address], 11/09/2024 09:55:20 11/09/19 25 11/09/2024 urina lysis , dipst ick Ketone - Not Available [place] [address], [place], [address], 11/09/2024 09:55:20 11/09/19 25 11/09/2024 urina lysis , dipst ick Bilirubin - Not Available Jose Alberto rogers [address], [place], [address], 11/09/2024 09:55:20 11/09/19 25 11/09/2024 urina lysis , dipst ick Glucose - Not Available [place] [address], [place], [address], 11/09/2024 09:55:20 11/09/19 25 11/09/2024 urina lysis , dipst ick Appearance clear Not Available Janina gerardo [address], [place], [address], 11/09/2024 09:55:20 11/09/19 25 11/09/2024 urina lysis , dipst ick Color light yellow Not Available [place] [address], [place], [address], 11/09/2024 09:55:20 03/21/20 22 DEXA, axial skele ton + verte bral fract ure asses sment No observ ation record ed. [facility] [address], [place], [address], 04/04/2022 17:29:59 03/25/20 22 DEXA, axial skele ton + verte bral fract ure asses sment No observ ation record ed. [email or web address] [facility] [address], [place], [address], 03/28/2022 15:17:00 01/30/20 23 01/28/2023 MAMMO , scree antoinette, bilat eral No observ ation record ed. [facility] [address], [place], [address], 07/28/2023 14:14:51 05/02/20 24 05/01/2024 MAMMO , scree antoinette, bilat eral No observ ation record ed. [facility] [address], [place], [address], 11/08/2024 17:15:29 10/11/19 25 10/11/2024 DEXA, axial skele ton + verte bral fract ure asses sment No observ ation record ed. [address], [place], [address], 10/26/2024 15:01:28 Result Notes None recorded. Problems Name Problem SNOMED Code Status Onset Date Resolution Date Notes Provider Name and Address Organization Details Recorded Time Vaginola bial hernia Completed 201611/13/2021 Other specified noninflam matory disorders of vagina;Pr actice ID: 0001 [facility] 14:49:30 Blood leukocyt e number above referenc e range [id number] Completed 201611/13/2021 Elevated white blood cell count, unspecifi ed;Practi ce ID: 0001 Shanna Luciano [facility] 2 14:48:[address] Concept Completed 201611/13/2021 Encounter for general adult medical exam w abnormal findings; Practice ID: 0001 Shanna Luciano [facility] 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 2 14:49:25 Screenin g for malignan t neoplasm of rectum Completed 201611/13/2021 Encounter for screening for malignant neoplasm of rectum;Pr actice ID: [id number] Shanna Luciano [facility] 2 14:49:20 Foreign body in uterus, any part [id number] Completed 201311/13/2021 Foreign body in the uterus;Re corded Elsewhere : No Locati on: [facility] So urce: EHR Chron ic: N Practic e ID: 0001 Bill able Time: 05:00:00 PM Shanna Luciano [facility] 2 14:48:53 Dysfunct ional uterine bleeding Completed 201311/13/2021 Unspecifi ed disorders of menstruat ion and other abnormal bleeding from female genital tract;Rec orded Elsewhere : No Locati on: [facility] So urce: EHR Chron ic: N Practic e ID: 0001 Bill able Time: 05:15:00 PM Shanna Luciano [facility] 2 14:48:48 Insertio n of intraute rine contrace ptive device Completed 201311/13/2021 INSERTION OF IUD;Recor ded Elsewhere : No Locati on: [facility] So urce: EHR Chron ic: N Practic e ID: 0001 Bill able Time: 05:00:00 PM Shanna Luciano [facility] 2 14:48:56 Uses IUD (intraut erine device) contrace ption [id number] Completed 201311/13/2021 Surveilla nce of intrauter ine contracep tive device;Re corded Elsewhere : No Locati on: [facility] So urce: EHR Chron ic: N Practic e ID: 0001 Bill able Time: 03:00:00 PM Shanna Luciano [facility] 2 14:48:59 Left lower quadrant pain [id number] Completed 201311/13/2021 Abdominal pain, left lower quadrant; Recorded Elsewhere : No Locati on: [facility] So urce: EHR Chron ic: N Practic e ID: 0001 Bill able Time: 02:45:00 PM Shanna Luciano [facility] 2 14:49:01 Acute vaginiti s [id number] Completed 201811/13/2021 Acute vaginitis ;Recorded Elsewhere : No Locati on: [facility] So urce: EHR Chron ic: N Practic e ID: 0001 Bill able Time: 03:45:00 PM Shanna Luciano [facility] 2 14:48:39 Pain of breast [id number] Completed 201011/13/2021 Mastodyni a;Recorde d Elsewhere : No Locati on: [facility] So urce: EHR Chron ic: N Practic e ID: 0001 Bill able Time: 06:00:00 PM Shanna rockwell [facility] 2 14:49:05 Adult health examinat ion Completed 201311/13/2021 ROUTINE MEDICAL EXAM;Magdiel rded Elsewhere : No Locati on: [facility] So urce: EHR Chron ic: N Practic e ID: 0001 Bill able Time: 04:30:00 PM Shanna Luciano [facility] [address] 14:48:[address] Concept Completed 201611/13/2021 Encntr for general adult medical exam w/o abnormal findings; Recorded Elsewhere : No Locati on: [facility] So urce: EHR Chron ic: N Practic e ID: 0001 Bill able Time: 04:00:00 PM Shanna Luciano [facility] 2 14:49:22 Atrophic vaginiti s [id number] Completed 201611/13/2021 atrophic vaginitis ;Recorded Elsewhere : No Locati on: [facility] So urce: EHR Chron ic: N Practic e ID: 0001 Bill able Time: 04:00:00 PM Shanna Luciano [facility] 2 14:48:43 Pelvic and perineal pain [id number] Completed 201811/13/2021 Pelvic pain;Magdiel rded Elsewhere : No Locati on: [facility] So urce: EHR Chron ic: N Practic e ID: 0001 Bill able Time: 02:00:00 PM Shanna Luciano [facility] 2 14:49:07 Bone density finding [id number] Completed 201811/13/2021 Oth disrd of bone density and structure , unspecifi ed site;Magdiel rded Elsewhere : No Locati on: [facility] So urce: EHR Chron ic: N Practic e ID: 0001 Bill able Time: 08:45:00 AM Shanna Luciano [facility] 2 14:48:46 Body mass index 25-29 [facility] [place] [id number] Completed 201611/13/2021 Body mass index (BMI) 26.0-26.9 , adult;Rec orded Elsewhere : No Locati on: [facility] So urce: EHR Chron ic: N Practic e ID: 0001 Bill able Time: 04:00:00 PM Shanna Luciano [facility] 2 14:48:44 Pregnanc y test negative [id number] Completed 201311/13/2021 examinati on or test, negative result;Re corded Elsewhere : No Locati on: [facility] So urce: EHR Chron ic: N Practic e ID: 0001 Bill able Time: 03:00:00 PM Shanna Luciano [facility] 2 14:49:10 Speciali d medical examinat ion Completed 201111/13/2021 Gynecolog ical Examinati on;Record ed Elsewhere : No Locati on: [facility] So urce: EHR Chron ic: N Practic e ID: 0001 Bill able Time: 04:00:00 PM Shanna Luciano [facility] [address] 14:49:[address] Concept Completed 201411/13/2021 Well woman check w/ abnormal finding;R ecorded Elsewhere : No Locati on: [facility] So urce: EHR Chron ic: N Practic e ID: 0001 Bill able Time: 08:30:00 AM Shanna Luciano [facility] 2 14:49:23 Screenin g for malignan t neoplasm of cervix Completed 201111/13/2021 Screening for malignant neoplasms of the cervix;Re corded Elsewhere : No Locati on: [facility] So urce: EHR Chron ic: Y Practic e ID: 0001 Bill able Time: 04:00:00 PM Shanna Luciano [facility] 2 14:49:14 Pre-surg bc evaluati on Completed 201311/13/2021 Pre-opera tive examinati on, unspecifi ed;Record ed Elsewhere : No Locati on: [facility] So urce: EHR Chron ic: N Practic e ID: 0001 Bill able Time: 05:00:00 PM Shanna rockwell [facility] 2 14:49:08 Evaluati on finding Completed 201611/13/2021 Hematuria , unspecifi ed;Record ed Elsewhere : No Locati on: [facility] So urce: EHR Chron ic: N Practic e ID: 0001 Bill able Time: 10:14:18 AM Shanna Luciano [facility] 2 14:48:51 Vaginiti s and vulvovag initis Completed 201211/13/2021 Vaginitis and vulvovagi nitis;Rec orded Elsewhere : No Locati on: [facility] So urce: EHR Chron ic: N Practic e ID: 0001 Bill able Time: 09:15:00 AM Shanna Luciano [facility] 2 14:49:28 Dyspareu beti [id number] Completed 201411/13/2021 Dyspareun ia;Record ed Elsewhere : No Locati on: [facility] So urce: EHR Chron ic: N Practic e ID: 0001 Bill able Time: 05:00:00 PM Shanna Luciano [facility] 2 14:48:50 Screenin g for malignan t neoplasm of colon Completed 201011/13/2021 Special screening for malignant neoplasms , colon;Pra ctice ID: 0001 Shanna Luciano [facility] 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 14:49:03 Irregula r intermen strual bleeding [id number] Completed 201311/13/2021 Metrorrha mary beth;Pract ice ID: 0001 Shanna Luciano [facility] 14:48:58 Problem Notes None recorded. Procedures Surgical History Date Name Laterality Status Provider Name and Address Organization Details Recorded Time 025 Most Recent Bone Density completed [facility] 11/09/2024 09:45:56 024 Date of Last Mammogram completed [facility] 11/09/2024 09:45:56 024 Date of Last Pap Smear completed Shanna [facility] 04/21/2024 12:26:37 024 completed [facility] 11/09/2024 09:45:56 024 Date of Last Colonoscopy completed [facility] 11/09/2024 09:45:56 021 Colonoscopy completed Ina Decker MAR- [address], [place], [address], [facility] 01/07/2023 14:15:11 020 endometrial biopsy completed Shanna Luciano [facility] 11/14/2021 17:31:04 020 Endometrial Biopsy completed Mihir Perez MD [address], [place], [address], [facility] 08/05/2020 11:08:58 019 completed Veronica Shetty [facility] 09/09/2020 09:53:03 017 Colonoscopy completed [facility] 11/14/2021 14:39:12 014 Hysteroscopy completed [facility] 11/14/2021 14:38:59 013 ureterorenoscopy with fragmentation and removal of calculus of kidney completed [facility] 11/14/2021 14:39:51 [address] [facility] 09/09/2020 09:50:33 [address] [facility] 09/09/2020 09:50:14 990 section completed [facility] 11/14/2021 14:38:18 987 destruction of intervertebral disc by injection completed [facility] 09/09/2020 09:50:06 [address] [facility] 09/09/2020 09:49:57 Tubal Ligation completed [facility] 11/14/2021 17:31:04 Caesarean Section completed [facility] 11/14/2021 17:31:04 Ovarian Cystectomy completed [facility] 11/14/2021 17:31:04 Dilation and Curettage completed [facility] 11/14/2021 17:31:04 Tonsillectomy completed [facility] 11/14/2021 17:31:04 Orthopedic Surgery completed [facility] 11/14/2021 17:31:04 bone marrow sampling completed Shanna Viveros [facility] 04/21/2024 12:30:47 Imaging Results Imaging Date Name Status LastModified by Organiz ation Details LastModified Time 03/21/2022 DEXA, axial skeleton + vertebral fracture assessment completed [facility] [address], [place], [address], 04/04/2022 17:29:59 03/25/2022 DEXA, axial skeleton + vertebral fracture assessment completed [address] [facility] [address], [place], [address], 03/28/2022 15:17:00 01/28/2023 MAMMO, screening, bilateral completed [address] [facility] [address], [place], [address], 07/28/2023 14:14:51 05/01/2024 MAMMO, screening, bilateral completed [facility] [address], [place], [address], 11/08/2024 17:15:29 10/11/2024 DEXA, axial skeleton + vertebral fracture assessment completed [address], [place], [address], 10/26/2024 15:01:28 Procedure Notes None recorded. Medical Equipment None Reported. Allergies Allergen ID Allergen Name Allergen Category Reaction Reaction Severity Criticality Documentation Date Start Date Code Code System Note Provider Name and Address Organization Details Recorded Time 27680 sulfameth oxazole medicatio n Not available Not available Not available 09/15/2020 25466 RxNorm Comme nt: [facility] Agent : BACTR IM; Not Available [facility] 0 14:20:48 2468 Substance with sulfonami de structure and antibacte rial mechanism of action (substanc e) medicatio n Not available Not available Not available 07/20/2020 57676 8003 SNALISA Simmons [facility], [facility] 0 11:48:30 2469 trimethop rim medicatio n Not available Not available Not available 07/20/2020 67963 RxNorm Doris rockwell, [facility] 0 11:48:34 Medications Name Sig Start Date Stop Date Status Note LastModified by Organization Details LastModified Time amoxicill in 500 mg capsule TAKE ONE CAPSULE BY MOUTH THREE TIMES DAILY UNTIL ALL TAKEN 11/14 completed Not Available Not Available Not Available Vicodin 5 mg-500 mg tablet 2 tabs po 2 hours before the procedur e 06/03 completed Prescrib ed Elsewher e: No Locat ion: [facility] odify By: [email or web address] Encount er DateTime : 06/03/20 14 11:56:00 AM Not Available Not Available Not Available hydrocodo ne 5 mg-acetam inophen 325 mg tablet TAKE 1 TABLET BY MOUTH EVERY 6 HOURS NEEDED FOR PAIN 04/21 completed Not Available Not Available Not Available phenazopy ridine 200 mg tablet active Not Available Not Available Not Available famotidin e 40 mg tablet TAKE 1 TABLET BY MOUTH DAILY 04/21 completed Not Available Not Available Not Available lovastati n 40 mg tablet TAKE 1 TABLET BY MOUTH EVERY DAY active Not Available Not Available No t Available Diflucan 150 mg tablet take 1 tablet by oral route once 11/14 completed Prescrib ed Elsewher e: No Locat ion: [facility] odify By: [email or web address] n Encoun ter DateTime : 10/08/19 03:55:29 PM Not Available Not Available Not Available penicilli n V potassium 500 mg tablet TAKE 1 TABLET BY MOUTH EVERY 6 HOURS UNTIL ALL TAKEN 04/21 completed Not Available Not Available Not Available prochlorp erazine maleate 10 mg tablet TAKE 1 TABLET BY MOUTH EVERY 6 HOURS NEEDED FOR NAUSEA OR VOMITING . 11/09 completed Not Available Not Available Not Available ciproflox acin 500 mg tablet TAKE 1 TABLET BY MOUTH TWICE A DAY 04/21 completed Not Available Not Available Not Available Celebrex 200 mg capsule 200mg po the night before and 400mg po morning of the procedur e 08/23 completed Prescrib ed Elsewher e: No Locat ion: Jose Alberto rogers [facility] odify By: khari Hernandez r DateTime : 06/03/20 14 11:56:00 AM Not Available Not Available Not Available omeprazol e 10 mg capsule,d elayed release 11/09 completed Not Available Not Available Not Available Flagyl 500 mg tablet take 1 tablet by oral route every 12 hours 10/05 completed Prescrib ed Elsewher e: No Locat ion: Jose Alberto rogers [facility] odify By: [email or web address] Encount er DateTime : 09/23/20 09:03:45 AM Not Available Not Available Not Available Questran 4 gram oral powder take 1 scoop by oral route 2 times every day dissolve d in 2 to 6 ounces of water or noncarbo nated beverage 09/14 completed Prescrib ed Elsewher e: Yes Loca tion: [facility] odify By: jrobert Hernandez r DateTime : 08/15/20 11 06:00:00 PM Not Available Not Available Not Available cephalexi n 500 mg capsule TAKE 1 CAPSULE BY MOUTH TWICE A DAY FOR 10 DAYS 10/12 completed Not Available Not Available Not Available Rituxan 10 mg/mL concentra te,intrav enous active Not Available Not Available Not Available omeprazol e 20 mg capsule,d elayed release TAKE 1 CAPSULE BY MOUTH EVERY DAY active Not Available Not Available No t Available cephalexi n 500 mg tablet take 1 tablet by oral route every 6 hours 03/26 completed Prescrib ed Elsewher e: No Locat ion: [facility] odify By: heather tylerunter DateTime : 02/11/20 04:47:25 PM Not Available Not Available Not Available amoxicill in 250 mg capsule TAKE 1 CAPSULE BY MOUTH EVERY 8 HOURS UNTIL FINISHED 10/12 completed Not Available Not Available Not Available allopurin ol 300 mg tablet TAKE 1 TABLET BY MOUTH EVERY DAY active Not Available Not Available No t Available azelastin e 137 mcg (0.1 %) nasal spray ADMINIST ER 2 SPRAYS INTO EACH NOSTRIL EVERY 12 HOURS NEEDED FOR NASAL CONGESTI ON active Not Available Not Available No t Available budesonid e DR - ER 3 mg capsule,d elayed,ex tended release TAKE 1 CAPSULE BY MOUTH EVERY DAY 11/09 completed Not Available Not Available Not Available diazepam 10 mg tablet 10mg po 1-2 hours before the procedur e 08/23 completed Prescrib ed Elsewher e: No Locat ion: Jose Alberto rogers [facility] odify By: khari cuello DateTime : 06/03/20 14 11:56:00 AM Not Available Not Available Not Available lovastati n 20 mg tablet take 1 tablet by oral route every day with the evening meal 11/14 completed Prescrib ed Elsewher e: Yes [facility] odify By: jhonathan see DateTime : 08/15/20 11 06:00:00 PM Not Available Not Available Not Available Vitamin D2 1,250 mcg (50,000 unit) capsule take 1 capsule by oral route every week active Prescrib ed Elsewher e: Yes Loca tion: [facility]to [facility] odify By: heather moreno DateTime : 03/26/20 18 08:30:00 AM Not Available Not Available Not Available colestipo l 1 gram tablet TAKE 1 TABLET BY MOUTH TWICE A DAY FOR THREE MONTHS active Not Available Not Available No t Available metronida zole 0.75 % topical gel PLEASE SEE ATTACHED FOR DETAILED DIRECTIO NS 04/21 completed Not Available Not Available Not Available amoxicill in 875 mg-potass ium clavulana te 125 mg tablet TAKE 1 TABLET BY MOUTH EVERY 12 HOURS 04/21 completed Not Available Not Available Not Available amoxicill in 500 mg-potass ium clavulana te 125 mg tablet TAKE 1 TABLET BY MOUTH TWICE DAILY FOR 5 DAYS 04/21 completed Not Available Not Available Not Available Premarin 0.625 mg/gram vaginal cream insert (1G) by vaginal route every day other day for a month then once or twice weekly 09/14 completed Prescrib ed Elsewher e: No Locat ion: Jose Alberto rogers [facility] odify By: babita cuello DateTime : 02/11/20 04:00:00 PM Not Available Not Available Not Available nitrofura ntoin monohydra te/macroc rystals 100 mg capsule TAKE 1 CAPSULE BY MOUTH EVERY 12 HOURS FOR 5 DAYS active Not Available Not Available No t Available Tricor 48 mg tablet take 1 tablet by oral route every day active Prescrib ed Elsewher e: Yes Loca tion: [facility] odify By: jhonathan see DateTime : 08/15/20 06:00:00 PM Not Available Not Available Not Available Vandazole 0.75 % (37.5 mg/5 gram) vaginal gel insert 1 applicat orful by vaginal route every day at bedtime 01/07 completed Prescrib ed Elsewher e: No Locat ion: [facility] odify By: dinorah moreno DateTime : 10/07/19 05:15:26 PM Not Available Not Available Not Available omeprazol e 11/14 completed Not Available Not Available Not Available Claritin 11/14 completed Not Available Not Available Not Available Tricor 11/14 completed Not Available Not Available Not Available lovastati n 11/14 completed Not Available Not Available Not Available fenofibra te nanocryst allized 145 mg tablet TAKE 1 TABLET BY MOUTH EVERY DAY active Not Available Not Available No t Available Cholestyr amine Light 4 gram oral powder MIX 1 SCOOP IN 2 TO 6 OZ OF WATER AND DRINK BEFORE BEDTIME OR NON CARBONAT ED BEVERAGE BEFORE MEALS 11/09 completed Not Available Not Available Not Available sodium,po tassium,m ag sulfates 17.5 gram-3.13 gram-1.6 gram oral soln 11/09 completed Not Available Not Available Not Available Vitamin D2 11/14 completed Not Available Not Available Not Available Imbruvica 11/14 completed Not Available Not Available Not Available Finacea 15 % topical foam APPLY TO FACE TWICE A DAY 01/07 completed Not Available Not Available Not Available Venclexta Starting Pack 10 mg-50 mg-100 mg tablets in a dose pack 11/09 completed Not Available Not Available Not Available Venclexta 100 mg tablet active Not Available Not Available Not Available Imbruvica 420 mg tablet take 1 tablet by oral route every day at the same time each day 11/09 completed Not Available Not Available Not Available Vitals Date Recorded Body height Body mass index (BMI) Body weight Systolic blood pressure Diastolic blood pressure Provider Name and Address Organization Details Last Updated DateTime 11/14/2021 155.58 cm 31.6 kg/m2 48043.96 g 126 mm[Hg] 70 mm[Hg] Shanna Luciano [facility] 2 17:30:46 Date Recorded Body weight Provider Name an d Address Organization Details Last Updated DateTime 01/07/2023 71903.8 g Shanna Jackeline [facility] 01/07/2023 13:59:52 Date Recorded Body mass index (BMI) Body height Systolic blood pressure Diastolic blood pressure Provider Name and Address Organization Details Last Updated DateTime 01/07/2023 31.4 kg/m2 155.58 cm 132 mm[Hg] 74 mm[Hg] Ina Decker MAR- [address], [place], [address], [facility] 01/07/2023 14:25:09 Date Recorded Body weight Body mass index (BMI) Body height Systolic blood pressure Diastolic blood pressure Systolic blood pressure Diastolic blood pressure Systolic blood pressure Diastolic blood pressure Provider Name and Address Organization Details Last Updated DateTime 4 06246.7 7 g 26.7 kg/m2 157.48 cm 161 mm[Hg] 95 mm[Hg] 144 mm[Hg] 84 mm[Hg] 142 mm[Hg] 78 mm[Hg] Shanna Jackeline [facility] 4 12:52:31 Date Recorded Body height Body mass index (BMI) Body weight Systolic blood pressure Diastolic blood pressure Provider Name and Address Organization Details Last Updated DateTime 10/13/2024 157.48 cm 27.8 kg/m2 88140.32 g 133 mm[Hg] 82 mm[Hg] Amy Ortiz [facility] 5 12:12:20 Date Recorded Body height Body mass index (BMI) Body weight Systolic blood pressure Diastolic blood pressure Provider Name and Address Organization Details Last Updated DateTime 11/09/2024 157.48 cm 28 kg/m2 50448.35 g 135 mm[Hg] 80 mm[Hg] Amy Ortiz [facility] 09:53:02 Social History Question Answer Notes LastModified by Organizat ion Details LastModified Time Tobacco Smoking Status Never Smoker Shanna Arceose rock[place], [facility] 01/07/2023 14:00:04 Do You Have An Advance Directive? No Information not available 11/14/2021 What Is Your Level Of Alcohol Consumption? Occasional Information not available 11/14/2021 How Many Years Have You Consumed Alcohol? 40 Information not available 11/14/2021 Are You Blind Or Do You Have Difficulty Seeing? No Information not available 11/14/2021 What Is Your Level Of Caffeine Consumption? Occasional Information not available 11/14/2021 How Much Tobacco Do You Chew? None Information not available 11/14/2021 In The 14 Days Before Symptom Onset, Have You Had Close Contact With A Laboratory-confir med COVID-19 While That Case Was Ill? No Information not available 11/14/2021 In The 14 Days Before Symptom Onset, Have You Had Close Contact With A Person Who Is Under Investigation For COVID-19 While That Person Was Ill? No Information not available 11/14/2021 Have You Been To An Area Known To Be High Risk For COVID-19? No Information not available 11/14/2021 Are You Deaf Or Do You Have Serious Difficulty Hearing? No Information not available 11/14/2021 What Type Of Diet Are You Following? REGULAR Information not available 11/14/2021 What Is The Highest Grade Or Level Of School You Have Completed Or The Highest Degree You Have Received? 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 No Information not available 11/14/2021 Do You Use Protection During Sex? No Information not available 11/14/2021 Do You Use Your Seat Belt Or Car Seat Routinely? Yes Information not available 11/14/2021 Do You Have Smoke And Carbon Monoxide Detectors In Your Home? Yes Information not available 11/14/2021 How Much Tobacco Do You Smoke? No Information not available 11/14/2021 Do You Feel Stressed (tense, Restless, Nervous, Or Anxious, Or Unable To Sleep At Night)? [id number] Information not available 11/14/2021 Do You Use Any Illicit Or Recreational Drugs? No Information not available 11/14/2021 Do You Use Sunscreen Routinely? Yes Information not available 11/14/2021 Have You Used IV Drugs? No Information not available 11/14/2021 Sex: Unknown Functional Status Question Answer Note LastModified by Organizat ion Details LastModified Time Do you have difficulty walking or climbing stairs? No Information not available 01/07/2023 Are you able to walk? YESWOREST Information not available 11/14/2021 Are you able to care for yourself? Yes Information not available 01/07/2023 Do you have difficulty dressing or bathing? No Information not available 01/07/2023 What is your exercise level? Occasional Information not available 11/14/2021 Mental Status None recorded. Family History Relationship Description Onset Age of this Age Resolved Age Notes LastModified by Organization Details LastModified Time Mother Heart disease [email or web address] Not available 2019 11:49:30 Mother Osteoporosis Not availab le 11/14/2021 17:30:52 Father Carcinoma in situ of colon [email or web address] Not available 2024 11:57:27 Father Heart disease Not available 2021 17:30:53 Father Malignant tumor of colon Not available 2021 17:30:53 Maternal Grandmother Carcinoma in situ of lung Not available 11:57:27 Maternal Grandmother Heart disease Not available 2021 17:30:53 Maternal Uncle Heart disease Not available 2021 17:30:53 Paternal Grandfather Heart disease Not available 2021 17:30:53 Maternal Grandfather Heart disease Not available 2021 17:30:53 Medical History Condition Response Allergies (Food, seasonal, environmental ) N Other N Breast Cancer N Drug/Latex Allergies/Reactions N Blood Transfusion N Dermatologic Disorders N Lung Disease N Defects or Inherited Disease N Breast Problem N Gestational Diabetes N Hematologic disorders N Anesthesia Complications N History of STI N Deep Vein Thrombosis N Polycystic ovary syndrome Y Anxiety Disorder N Autoimmune disease N Arthritis N Infertility N Polyps N Acid Reflux (GERD) Y History of abnormal pap N Cancer Y Stroke N Varicosities N Neurologic/Epilepsy N Endometriosis N High Cholesterol Y Headaches N Fibromyalgia N Kidney Disease N Heart Problems N Kidney or Bladder Problems N Thyroid Problems N GI Problems Y Eating Disorder N Anemia N Art (IVF or FET) N Psychiatric Illness N Ovarian Cancer N Diabetes N Pulmonary (TB, Asthma) N Hepatitis/Liver Disease N No Past Medical History N Eczema N Urinary Tract Infection N Abuse/Domestic Violence N Asthma N Trauma/Violence N Depression/ depression N Heart Disease N Pre-Eclampsia N Hypertension Y Osteoporosis N Thrombophilias N Gynecological History Statement/Question Response Date of Last Mammogram 05/23/2024 On BCP's at Conception? N N STIs/STDs N HPV Vaccine N 04/10/2019 12 Current Control Method Menopause Age at First Child 24 If Post Menopausal, Age at Menopause 51 Date of Last Colonoscopy 11/04/2023 Most Recent Bone Density 10/11/2024 Sexually Active? Y Menses Monthly N Date of DEXA bone scan 10/11/2024 Age of first menstrual cycle 12 Date of Last Pap Smear 04/21/2024 Sexual Problems? Y LMP Unknown 11/04/2023 N Obstetrics History GPAL:G 4 P 0 0 1 3 Type Value Spontaneous 1 Living 3 Total 4 Past Encounters Encounter ID Performer Location Encounter Start Date Encounter Closed Date Diagnosis/Indication Diagnosis SNOMED-CT Code Diagnosis ICD10 Code Diagnosis Note [id number] Ina Decker MAR-[facility] [address] [address] 07/20/2020 11:46:17 07/20/2020 12:43:47 Postmenopausal bleeding 54689918 N95.0 In light of Hx & current complaints we agreed to pursue TVUS for further evaluation ; will complete labs if necessary for FSH/LH/Est radiol & if cyst found a CA-125 on day of US. We discussed possibilit y of EMBx if US abn or we continue to suspect AUB is coming from endometriu m. Discussed PMB & risks for Endometria l pathologie s with understand ing verbalized of importance of evaluation . She agrees. Time spent in visit is a total of 15 mins with at least 50% of visit consisting of counseling and review of plan of care. [id number] Mihir Perez MD [facility] [address],[place] [address] 07/24/2020 11:28:07 07/24/2020 12:32:16 Postmenopausal bleeding [id number] N95.0 R10.2 [id number] Ina Decker [facility] [address],[place] [address] 07/24/2020 11:28:41 07/25/2020 13:27:37 Postmenopausal bleeding 39617136 N95.0 We reviewed US today which only showed posterior fibroid but no dimensions . EMC is neg. No current AUB which we are not even sure is definitely coming from uterus. Complicate d Hx Leukemia; medication s she is on can sometimes effect urine & has seen PCP for hematuria in past. Today, we agreed to pursue labs to ensure levels are where we expect them to be for postmenopa usal female. Make appt for MD consult but will contact with labs/MD feedback to see if this is necessary as report does not indicate dimensions of fibroid etc. Still consider EMBx despite thin emc jessa due to cancer hx. She is appreciati ve of this plan of care. No further questions. Time spent in visit is a total of 15 mins with at least 50% of visit consisting of counseling and review of plan of care. [id number] Mihir Perez MD [facility] [address],[place] [address] 08/05/2020 09:58:05 08/05/2020 11:10:53 Postmenopausal bleeding [id number] N95.0 R10.2 this patient is a 60-year-ol d female with postmenopa usal bleeding. She is found have fibroid uterus. She also has postmenopa usal bleeding. We discussed postmenopa usal bleeding. We discussed myoma. We spent over 25 minutes face-to-fa ce. We performed endometria l biopsy. She tolerated the procedure well. Will follow-up on those results. We will consider treatment for abnormal bleeding. [id number] Mihir Perez MD [facility] [address] [address] 09/09/2020 09:54:25 09/09/2020 10:24:32 Gynecologic examination [id number] Z01.419 This patient is here for her annual exam. A thorough history was taken. A physical exam was performed. Age appropriat e routine health screening was ordered, performed, and discussed. Recommende d testing was ordered. She was asked to follow up in one year. She will be informed of any test results. Mammogram - [ scheduled ] Colonoscop y - [ up-to-date ] Bone Density - [ up-to-date ] Cholestero l - [ ordered ] Pap - today [id number] RUDY Prather-[facility] [address] [address] 11/14/2021 17:15:08 11/14/2021 18:28:42 Gynecologic examination 89678239 Z01.419 Take Calcium with Vitamin D 12-1500mg daily. Do monthly self breast exams. It is advised to get annual flu shot in the fall and she could obtain at [facility] or [facility] clinic. If you haven't received the Tdap vaccine in the last 10 years you should obtain one as well. Have mammogram yearly, bone density every 2-3 years and colonoscop y every 5-10 years depending on findings and history. Engage in daily exercise of low impact aerobic exercise 45-60 minutes 4-5 times weekly. Avoid tobacco and illicit drugs as well as using moderation with alcohol intake less than 1-2 8 oz beverages daily. This lifestyle behavior pattern will lead to less health conditions and longer life span. If BMI greater than 25 weight watchers or dietary consult advised. Questions have been answered. Patient appears to understand instructio ns, but if you have any further questions call or respond to this email Pap/HPV sent (Hx of chronic leukemia)C olon screen UTDDexa orderedMam mo completed 2021 wnlGenetic screen discussedS TD declined Postmenopausal state 764 56767 Z78.0 [id number] Ina Decker [facility] [address] [address] 01/07/2023 13:52:04 01/07/2023 14:40:12 Gynecologic examination [id number] Z01.419 Z11.51 Take Calcium with Vitamin D 12-1500mg daily. Do monthly self breast exams. It is advised to get annual flu shot in the fall and she could obtain at [facility] or [facility]. If you haven't received the Tdap vaccine in the last 10 years you should obtain one as well. Have mammogram yearly, bone density every 2-3 years and colonoscop y every 5-10 years depending on findings and history. Engage in daily exercise of low impact aerobic exercise 45-60 minutes 4-5 times weekly. Avoid tobacco and illicit drugs as well as using moderation with alcohol intake less than 1-2 8 oz beverages daily. This lifestyle behavior pattern will lead to less health conditions and longer life span. If BMI greater than 25 weight watchers or dietary consult advised. Questions have been answered. Patient appears to understand instructio ns, but if you have any further questions call or respond to this email Pap/HPV sent (Hx of chronic leukemia)C olon screen UTDDexa ordered due 2023 PCPMammo orderedGen etic screen discussedS TD declined Screening mammography 24 [id number] Z12.31 [id number] Oilvia Singh MAR [facility] [address] [address] 04/21/2024 12:23:51 04/21/2024 14:17:43 Gynecologic examination 94116302 Z01.419 WWEpostmen opausalpap updateddec lined STI screenmamm ogram UTDcolonos copy UTDdexa order givenBP precaution s discussed, encouraged PCP f/u Do monthly self breast exams.It is advised to get annual flu shot in the fall and she could obtain at local pharmacy. If you haven't received the Tdap vaccine in the last 10 years you should obtain one as well.Have mammogram yearly, bone density every 2-3 years and stay up to date on colon cancer screening. Engage in regular exercise. Avoid tobacco and illicit drugs. This lifestyle behavior pattern will lead to less health conditions and longer life span. If BMI greater than 25 dietary consult advised.Qu estions have been answered. Screening for osteoporosis [id number] Z13.820 [id number] Mihir Perez MD [facility] [address],[facility] [address] 10/13/2024 11:56:10 10/13/2024 12:35:38 Urinary symptoms [id number] R39.9 Patient presents with symptoms of UTI. Results of dipstick were {{positive * negative }} for UTI. Advised to drink clear fluids, Tylenol for pain and take prescribed medication s as instructed . Patient encouraged to follow up within 1 week if not improving. Urine culture sent to confirm infection. [id number] Mihir Perez MD [facility] [address],[place] [address] 11/09/2024 09:38:40 11/09/2024 12:01:26 Urinary symptoms 168292248 R39.9 Patient presents for symptoms of UTI. Discussed the possibilit y of treating urinary tract infection with Ciprofloxa imelda 500 mg BID x 3 days in order for patient to finish course of antibiotic s fully before her Rituxan infusion on Friday. Recommende d that before prescribin g, patient contact oncologist due to a potential serious interactio n of Ciprofloxa imelda with her daily Venclexta. Recommende d that we empiricall y start treatment with Macrobid 100 mg BID x 5 days instead. Rx sent. Urine culture sent to confirm infection. Health Concerns Section Related Observation LastModified by Organization Detai ls LastModified Time None Recorded Concern Status LastModified by Organization Details LastModified Time None Recorded Advance Directives Directive N: Payers Encounter Date Sequence Insurance Name Policy Number Policy Webster Covered Member ID Webster Member ID Guarantor Name 11/14/2021 1 [place] [id number] Madison Recklein [id number] E Recklein 01/07/2023 1 [place] [id number] Madison Recklein [id number] Madison E Recklein 04/21/2024 1 [place] [id number] Madison Recklein [id number] Madison E Recklein 10/13/2024 1 [place] [id number] Madison Recklein [id number] Madison E Recklein 11/09/2024 1 [place] [id number] Madison Recklein [id number] Madison E Recklein Notes Date Note Type Note Provider Name and Address Organization Details Recorded Time 2 text/html 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 Post-MenopausalReported bypatient.Menopausal Symptoms:no menopausal symptoms; normal vaginal lubrication Vaginal Bleeding:history of menopause having occurred; no history of post menopausal bleeding Urinary Symptoms:no hematuria; no incontinence; no nocturia; no urinary frequency Vulva:no genital lesion; no vulvar atrophy Vagina:normal vaginal discharge; no vaginal atrophy Breast:no breast lump; no nipple discharge; no breast pain Sexual Complaints:no sexual complaints Psychological Symptoms:no depression; no anxiety Preventive Measures:encourage regular mammograms starting age 40; encourage self breast examination; encourage regular exercise; encourage no tobacco use; mammogram performed within the past year; history of recent colonoscopy; needs to schedule bone density RADHA Prather [address], [place], [address], [facility] 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 Post-MenopausalReported bypatient.Menopausal Symptoms:no menopausal symptoms; normal vaginal lubrication Vaginal Bleeding:history of menopause having occurred; no history of post menopausal bleeding Urinary Symptoms:no hematuria; no incontinence; no nocturia; no urinary frequency Vulva:no genital lesion; no vulvar atrophy Vagina:normal vaginal discharge; no vaginal atrophy Breast:no breast lump; no nipple discharge; no breast pain Sexual Complaints:no sexual complaints Psychological Symptoms:no depression; no anxiety Preventive Measures:encourage regular mammograms starting age 40; encourage self breast examination; encourage regular exercise; encourage no tobacco use; needs to schedule mammogram; history of recent colonoscopy RADHA Prather [address] [place], [address], [facility] 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 Post-MenopausalReported bypatient.Menopausal Symptoms:no menopausal symptoms; normal vaginal lubrication Vaginal Bleeding:history of menopause having occurred; no history of post menopausal bleeding Urinary Symptoms:no hematuria; no incontinence; no nocturia; no urinary frequency Vulva:no genital lesion; no vulvar atrophy Vagina:normal vaginal discharge; no vaginal atrophy Breast:no breast lump; no nipple discharge; no breast pain Sexual Complaints:no sexual complaints Psychological Symptoms:no depression; no anxiety Preventive Measures:encourage regular mammograms starting age 40; encourage self breast examination; encourage regular exercise; encourage no tobacco useNotes:64yo WWEpostmenopausallast pap 01/07/2023mammogram UTD / PCPcolonoscopy UTDdexa last 2021 - osteopenia chronic leukemia - follows with oncology RUDY Mitchell [address], [place], [address], [facility] 04/21/2024 14:06:20 5 text/html Patient here with c/o of possible UTIPt c/o burning with urination, pelvic pressure and urinary urgency and hesitancy, and nocturia.Denies fever, chills, or back pain. CHARAN GLORIA NP [address], [place], [address], [facility] 10/13/2024 12:30:29 5 text/html Patient here with UTI symptoms of urinary frequency, dysuria, and urgency.Patient was treated for a UTI 10/13, but did not finish antibiotics fully due to scheduled rituxan infusion for leukemia (CLL) 4 days into treatment. Patient has next infusion scheduled on 11/13 and is concerned about not treating possible infection completely. CHARAN GLORIA NP [address], [place], [address], [facility] 11/09/2024 11:13:22 OBGyn Episode Ob Episode Information Episode Created Date Number of Fetuses Patient Bloodtype Patient rh Status Prepregnancy Weight lbs Domestic Partner Domestic Partner Phone Father Name Lockstitch Cup Setter Status 07/20/20 20 1 CLOSED Fetus Data First Name Last Name Admitted to NICU Weight (g) Sex Living Outcome Pediatric Complications Fetus ID Race Codes Race Delivery Type 3742.13 4 M Full Term [id number] Vaginal Delivery Pravin Calculation Initial Pravin Date Initial Exam Date Initial Exam Provider Initial Ultrasound Date Last Menstrual Period Date Ultra Sound Weeks Gestation 0 Eighteen To Twenty Week Pravin Update Ultra Sound Date Fundal Height At Umbil Quickening Date Ultra Sound Latest Weeks Gestation Final Pravin Confirmed By Final Pravin Confirmed Date Final Pravin Date Ultra Sound Latest Days Gestation 0 0 Menstrual History Last Menstrual Date Menses Monthly On Bcp Conception Prior Menses Frequency Hcg Plus Date Menarche Onset Age Delivery Information Delivery Date Delivery Type Labor Anesthesia Weeks Gestation Incision Type Labor Labor Length Hrs Delivered By Post Complications Tubal Sterilization Discharge Date Comments 4 39 Jimmy p her Discharge Information Feeding Method Contraceptive Method Maternal HG B and HCT Levels Ob Episode Information Episode Created Date Number of Fetuses Patient Bloodtype Patient rh Status Prepregnancy Weight lbs Domestic Partner Domestic Partner Phone Father Name Lockstitch Cup Setter Status 07/20/20 20 1 CLOSED Fetus Data First Name Last Name Admitted to NICU Weight (g) Sex Living Outcome Pediatric Complications Fetus ID Race Codes Race Delivery Type 4195.72 6 M Full Term 5552 Primary Pravin Calculation Initial Pravin Date Initial Exam Date Initial Exam Provider Initial Ultrasound Date Last Menstrual Period Date Ultra Sound Weeks Gestation 0 Eighteen To Twenty Week Pravin Update Ultra Sound Date Fundal Height At Umbil Quickening Date Ultra Sound Latest Weeks Gestation Final Pravin Confirmed By Final Pravin Confirmed Date Final Pravin Date Ultra Sound Latest Days Gestation 0 0 Menstrual History Last Menstrual Date Menses Monthly On Bcp Conception Prior Menses Frequency Hcg Plus Date Menarche Onset Age Delivery Information Delivery Date Delivery Type Labor Anesthesia Weeks Gestation Incision Type Labor Labor Length Hrs Delivered By Post Complications Tubal Sterilization Discharge Date Comments 0 42 Jason Discharge Information Feeding Method Contraceptive Method Maternal HG B and HCT Levels Ob Episode Information Episode Created Date Number of Fetuses Patient Bloodtype Patient rh Status Prepregnancy Weight lbs Domestic Partner Domestic Partner Phone Father Name Lockstitch Cup Setter Status 07/20/20 20 1 CLOSED Fetus Data First Name Last Name Admitted to NICU Weight (g) Sex Living Outcome Pediatric Complications Fetus ID Race Codes Race Delivery Type 3231.84 3 M Full Term 5553 Vaginal Delivery Pravin Calculation Initial Pravin Date Initial Exam Date Initial Exam Provider Initial Ultrasound Date Last Menstrual Period Date Ultra Sound Weeks Gestation 0 Eighteen To Twenty Week Pravin Update Ultra Sound Date Fundal Height At Umbil Quickening Date Ultra Sound Latest Weeks Gestation Final Pravin Confirmed By Final Pravin Confirmed Date Final Pravin Date Ultra Sound Latest Days Gestation 0 0 Menstrual History Last Menstrual Date Menses Monthly On Bcp Conception Prior Menses Frequency Hcg Plus Date Menarche Onset Age Delivery Information Delivery Date Delivery Type Labor Anesthesia Weeks Gestation Incision Type Labor Labor Length Hrs Delivered By Post Complications Tubal Sterilization Discharge Date Comments 6 39 [place] Discharge Information Feeding Method Contraceptive Method Maternal HG B and HCT Levels Ob Episode Information Episode Created Date Number of Fetuses Patient Bloodtype Patient rh Status Prepregnancy Weight lbs Domestic Partner Domestic Partner Phone Father Name Lockstitch Cup Setter Status 09/09/20 20 1 CLOSED Fetus Data First Name Last Name Admitted to NICU Weight (g) Sex [facility] Pediatric Complications Fetus ID Race Codes Race Delivery Type , Spontane ous [id number] Pravin Calculation Initial Pravin Date Initial Exam Date Initial Exam Provider Initial Ultrasound Date Last Menstrual Period Date Ultra Sound Weeks Gestation 0 Eighteen To Twenty Week Pravin Update Ultra Sound Date Fundal Height At Umbil Quickening Date Ultra Sound Latest Weeks Gestation Final Pravin Confirmed By Final Pravin Confirmed Date Final Pravin Date Ultra Sound Latest Days Gestation 0 0 Menstrual History Last Menstrual Date Menses Monthly On Bcp Conception Prior Menses Frequency Hcg Plus Date Menarche Onset Age Delivery Information Delivery Date Delivery Type Labor Anesthesia Weeks Gestation Incision Type Labor Labor Length Hrs Delivered By Post Complications Tubal Sterilization Discharge Date Comments 3 Discharge Information Feeding Method Contraceptive Method Maternal HG B and HCT Levels
--- OUTSIDE RECORDS SUMMARY | 2025-01-29 15:59 | XMS_ITS | Clinical Summary ---
Author Organization [facility] Address [address] [place] [address] Care Team Providers Care Grocery Cashier Name Role Phone Barb Harding MD Unavailable [phone] Tommy Cerda MD Unavailable [phone] Malissa Soriano MD Primary Care Provider Allergies Active Allergy Reactions Criticality Noted Date Comments Sulfamethoxazole-Trimethoprim Diarrhea,Vomiting Low 02/18/2024 Levofloxacin Rash Medium 01/01/2012 Sulfa (Sulfonamide Antibiotics) Diarrhea,Vomiting Low 04/15/2018 Medications azelastine (ASTELIN) 137 mcg (0.1 %) nasal spray 10 03/16/20 18 Active fenofibrate nanocrystallized (TRICOR,TRIGLIDE) 145 mg tablet 9 03/10/20 18 Active lovastatin (MEVACOR) 40 mg tablet 2 03/26/20 18 Active omeprazole (PriLOSEC) 20 mg capsule 0 06/09/20 18 Active ergocalciferol, vitamin D2, (VITAMIN D2 ORAL) Take by mouth Active loratadine (CLARITIN) 10 mg tablet Take 1 tablet (10 mg total) by mouth daily Active multivitamin with minerals tablet Take 1 tablet by mouth daily Active colestipoL (COLESTID) 1 gram tablet Take by mouth 2 (two) times a day 05/04/20 24 Active prochlorperazine (Compazine) 10 mg tabletIndications: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 Do not cut, crush or split. 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),Tumor lysis syndrome TAKE 1 TABLET BY MOUTH EVERY DAY 90 tablet 1 11/01/19 25 Active Active Problems Problem Noted Date Diagnosed Date Lower extremity edema 05/24/2024 Palpitations 05/24/2024 Hyperlipidemia 05/24/2024 Chronic lymphocytic leukemia (CLL), B-cell 03/25 Encounters Date Type Department Care Team Description 01/10/2025 1:00 PM CDT Infusion [address] [place] [address] Chronic lymphocytic leukemia of B-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 (HCC) (Primary Dx) 01/10/2025 12:30 PM CDT Lab [address] [address] Chronic lymphocytic leukemia of B-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 (HCC) 01/05/2025 Orders Only [facility]icians [facility] [address] [place] [address] [address] [place] [address] Barb Harding MD 01/04/2025 Orders Only [facility] [address] [place] [address] [address] [place] [address] Barb Harding MD 12/13/2024 12:45 PM CDT Infusion [address] [place] [address] Chronic lymphocytic leukemia of B-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 (HCC) (Primary Dx) 12/13/2024 12:20 PM CDT Office Visit [facility] [address] [place] [address] [address] [place] [address] Doreen Petersen NP Chronic lymphocytic leukemia of B-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 (HCC) (Primary Dx) 12/13/2024 12:00 PM CDT Lab [address] [address] Chronic lymphocytic leukemia of B-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 (HCC) 11/12/2024 1:15 PM SESSIONS CLERK Infusion [facility] at [address] [address] Chronic lymphocytic leukemia of B-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 (HCC) (Primary Dx) 11/12/2024 12:45 PM SESSIONS CLERK Lab [address] [address] Chronic lymphocytic leukemia of B-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 (HCC) 11/07/2024 Orders Only [facility] [address] [place] [phone] Barb Harding MD 11/01/2024 12:40 PM SESSIONS CLERK Office Visit [facility] [address] [place] [phone] Doreen Petersen NP Chronic lymphocytic leukemia of B-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 (HCC) (Primary Dx) 11/01/2024 11:45 AM SESSIONS CLERK Lab [facility] at [address] [address] Chronic lymphocytic leukemia of B-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 (HCC) from Last 3 Months Immunizations Immunization Administration Dates Next Due Influenza, Quadrivalent, Steph l Culture-based MDCK, Preservative Free, Antibiotic Free, Intramuscular 07/11/2021,07/12/2020 Influenza, Trivalent, Cell C ulture-based MDCK, Preservative Free, Antibiotic Free, Intramuscular 07/23/2024 Influenza, Unspecified 07/07/2019,07/21/2018,09/2016 Pfizer SARS-CoV-2 Monovalent Vaccination (12+ Yrs) PURPLE 06/19/2021,12/23/2020,11/30/2020 Surgical History Surgery Date Site/Laterality Comments COLONOSCOPY SECTION CHOLECYSTECTOMY OOPHERECTOMY Right LUMBAR DISCECTOMY Medical History Medical History Date Comments Chronic lymphocytic leukemia (HCC) Lymphocytic colitis Hyperlipidemia Hypertension Acid indigestion Gallstones History of kidney stones Family History Medical History Relation Name Comments Heart disease Brother Colon cancer Father Heart disease Father Leukemia Father Leukemia Father's Brother Diverticulitis Mother Heart disease Mother Relation Name Status Comments Brother Alive Father Father's Brother Mother Social History Tobacco Use Types Packs/Day Years Used Date Smoking Tobacco: Never Smokeless Tobacco: Never Alcohol Use Standard Drinks/Week Comments Yes 0 (1 standard drink = 0.6 oz pur e alcohol) social AUDIT-C Answer Date Recorded Q1: How often do you have a drink containing alc ohol? 2-4 times a month 12/13/2024 Q2: How many drinks containi ng alcohol do you have on a typical day when you are drinking? 1 or 2 12/13/2024 Q3: How often do you have si x or more drinks on one occasion? Less than monthly 12/13/2024 Personal Safety Answer Date Recorded Have you ever been in or are you currently in a harmful physical or emotional relationship or is someone making you feel afraid or unsafe? Denies 02/18/2024 Comments No Sex and Gender Information Value Date Recorded Sex Assigned at Not on file Legal Sex Female 8:39 AM SESSIONS CLERK Gender Identity Not on file Sexual Orientation Not on file Obstetrics History Last Filed Vital Signs Vital Sign Reading Time Taken Comments Blood Pressure 120/75 01/10/2025 2:44 PM CDT Pulse 68 01/10/2025 2:44 PM CDT Temperature 36.2 C (97.2 F) 01/10/2025 2:44 PM CDT Respiratory Rate 16 01/10/2025 2:44 PM CDT Oxygen Saturation 98% 01/10/2025 2:44 PM CDT Inhaled Oxygen Concentration - - Weight 68.6 kg (151 lb 3.2 oz) 01/10/2025 1:01 P M CDT Height 156.2 cm (5' 1.5 ) 11/01/2024 12:06 PM CS T no shoes Body Mass Index 28.11 11/01/2024 12:06 PM SESSIONS CLERK Plan of Treatment Health Maintenance Due Date Last Done Comments Cervical Cancer Screening 1960 Depression Screening 1959 Hepatitis C Screening 1959 Osteoporosis Screening-Bone Density Scan 1959 DTaP/Tdap/Td Vaccine (1 - Tdap) 1970 Pneumococcal vaccine 65+ (1 of 2 - PCV) 1978 Zoster Vaccine (1 of 2) 1978 Well Visit 65+ 2024 Covid-19 Vaccine (4 - 2023-2 5 season) 2024 06/19/2021, 12/23/2020, 11/30/2020 Fall Risk Assessment 02/17/2025 02/18/2024 Breast Cancer Screening-Mammogram 05/01/2025 05/01/2024, 01/29/2023, 01/28/2023, Additional history exists Colon Cancer Screening-Colonoscopy 08/07/2033 08/07/2023, 08/07/2023 Colon Cancer Screening-CT Colonography Discontinued 08/07/2023, 08/07/2023 Colon Cancer Screening-DNA Stool Discontinued 08/07/20 23, 08/07/2023 Colon Cancer Screening-FIT Discontinued 08/07/2023, Colon Cancer Screening-Sigmoidoscopy Discontinued 08/07/2023, 08/07/2023 Hepatitis B Screening Completed 07/23/2024 Influenza Vaccine Completed 07/23/2024, , 07/12/2020, Additional history exists Procedures Procedure Name Priority Date/Time Associated Diagnosis Comments EGFR STAT 01/10/2025 12:44 PM CDT Chronic lymphocytic leukemia of B-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 (HCC) DIFFERENTIAL AUTO STAT 01/10/2025 12: 44 PM CDT Chronic lymphocytic leukemia of B-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 (HCC) CBC WITH AUTO DIFFERENTIAL STAT 01/10/2025 12:44 PM CDT Chronic lymphocytic leukemia of B-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 (HCC) COMPREHENSIVE METABOLIC PANEL STAT 01/10/2025 12:44 PM CDT Chronic lymphocytic leukemia of B-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 (HCC) LACTATE DEHYDROGENASE Routine 01/10/2025 12:44 PM CDT Chronic lymphocytic leukemia of B-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 (HCC) EGFR STAT 12/13/2024 12:12 PM CDT Chronic lymphocytic leukemia of B-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 (HCC) DIFFERENTIAL AUTO STAT 12/13/2024 12: 12 PM CDT Chronic lymphocytic leukemia of B-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 (HCC) CBC WITH AUTO DIFFERENTIAL STAT 12/13/2024 12:12 PM CDT Chronic lymphocytic leukemia of B-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 (HCC) COMPREHENSIVE METABOLIC PANEL STAT 12/13/2024 12:12 PM CDT Chronic lymphocytic leukemia of B-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 (HCC) LACTATE DEHYDROGENASE Routine 12/13/2024 12:12 PM CDT Chronic lymphocytic leukemia of B-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 (HCC) EGFR STAT 11/12/2024 12:53 PM SESSIONS CLERK Chronic lymphocytic leukemia of B-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 (HCC) DIFFERENTIAL AUTO STAT 11/12/2024 12: 53 PM SESSIONS CLERK Chronic lymphocytic leukemia of B-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 (HCC) CBC WITH AUTO DIFFERENTIAL STAT 11/12/2024 12:53 PM SESSIONS CLERK Chronic lymphocytic leukemia of B-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 (HCC) COMPREHENSIVE METABOLIC PANEL STAT 11/12/2024 12:53 PM SESSIONS CLERK Chronic lymphocytic leukemia of B-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 (HCC) LACTATE DEHYDROGENASE Routine 11/12/2024 12:53 PM SESSIONS CLERK Chronic lymphocytic leukemia of B-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 (HCC) EGFR Routine 11/01/2024 11:58 AM SESSIONS CLERK Chronic lymphocytic leukemia of B-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 (HCC) DIFFERENTIAL AUTO Routine 11/01/2024 11: 58 AM SESSIONS CLERK Chronic lymphocytic leukemia of B-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 (HCC) CBC WITH AUTO DIFFERENTIAL Routine 11/01/2024 11:58 AM SESSIONS CLERK Chronic lymphocytic leukemia of B-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 (HCC) COMPREHENSIVE METABOLIC PANEL Routine 11/01/2024 11:58 AM SESSIONS CLERK Chronic lymphocytic leukemia of B-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 (HCC) LACTATE DEHYDROGENASE Routine 11/01/2024 11:58 AM SESSIONS CLERK Chronic lymphocytic leukemia of B-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 (HCC) IGG Routine 11/01/2024 11:58 AM SESSIONS CLERK Chronic lymphocytic leukemia of B-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 (HCC) COLONOSCOPY Routine 08/07/2023 1:35 PM SESSIONS CLERK from Last 3 Months or Most Recently Relevant to Health Maintenance Results * eGFR (01/10/2025 12:44 PM CDT) eGFR >90 >=60 mL/min/1. 73 m2 Comment: Interpretive Data Reference Interval Normal >/= 90 mL/min/1.73m2 Mildly decreased* 60 - 89 mL/min/1.73m2 Mildly to moderately decreased 45 - 59 mL/min/1.73m2 Moderately to severely decreased 30 - 44 mL/min/1.73m2 Severely decreased 15 - 29 mL/min/1.73m2 Kidney Failure < 15 mL/min/1.73m2 *Relative to young adult level Estimated glomerular filtration rate is determined by the 2020 CKD-EPI equation recommended by the National Kidney Foundation (A Unifying Approach to GFR Estimation: Recommendations of the NKF-ASK Task Force on Reassessing the Inclusion of Race in Diagnosing Kidney Disease, JASN 2020). The CKD-EPI equation should not be used for patients with unstable renal function and has not been validated in children and those over 70. Current interpretive data was last reviewed 2021. Testing performed by: [address] [address] Blood 01/10/2025 12:4 4 PM CDT 01/10/2025 12:51 PM CDT Doreen Petersen NP LAB BLOOD ORDERABLES F inal Result [facility] [address] [facility] Department [place] [address] * Differential, auto (01/10/2025 12:44 PM CDT) Neutrophil abs 3.46 1.50 - 6.50 K/cumm Comment:Testing performed by : [address] [address] Imm gran abs 0.03 0.00 - 0.10 K/cumm [facility] Comment:Testing performed by : [address] [address] Lymphocyte abs 1.34 0.80 - 3.30 K/cumm CRYS Comment:Testing performed by : [address] [address] Monocyte abs 0.55 0.20 - 0.80 K/cumm CRYS Comment:Testing performed by : [address] [address] Eosinophil abs 0.00 0.00 - 0.50 K/cumm CRYS Comment:Testing performed by : [address] [address] Basophil abs 0.01 0.00 - 0.10 K/cumm CRYS Comment:Testing performed by : [address] [address] Neutrophil pct 64.1 % [facility]YS Comment: Interpretive Data Percent cell count reference ranges are not reported, since discordance with absolute values may lead to misinterpretation of CBC data. Current Interpretive Data was last revised on 2018. Testing performed by: [address] [address] Imm gran pct 0.6 % [facility] Comment: Interpretive Data Percent cell count reference ranges are not reported, since discordance with absolute values may lead to misinterpretation of CBC data. Current Interpretive Data was last revised on 2018. Testing performed by: [address] [address] Lymphocyte pct 24.9 % [facility] Comment: Interpretive Data Percent cell count reference ranges are not reported, since discordance with absolute values may lead to misinterpretation of CBC data. Current Interpretive Data was last revised on 2018. Testing performed by: [address] [address] Monocyte pct 10.2 % [facility] Comment: Interpretive Data Percent cell count reference ranges are not reported, since discordance with absolute values may lead to misinterpretation of CBC data. Current Interpretive Data was last revised on 2018. Testing performed by: [address] [address] Eosinophil pct 0.0 % [facility] Comment: Interpretive Data Percent cell count reference ranges are not reported, since discordance with absolute values may lead to misinterpretation of CBC data. Current Interpretive Data was last revised on 2018. Testing performed by: [address] [address] Basophil pct 0.2 % [facility] Comment: Interpretive Data Percent cell count reference ranges are not reported, since discordance with absolute values may lead to misinterpretation of CBC data. Current Interpretive Data was last revised on 2018. Testing performed by: [address] [address] Blood 01/10/2025 12:4 4 PM CDT 01/10/2025 12:51 PM CDT us Doreen Petersen NP LAB BLOOD ORDERABLES F inal Result [facility] [address] [facility] Department of Laboratories [place], [place] [id number] * CBC with auto differential (01/10/2025 12:44 PM CDT) [facility] WBC 5.39 3.80 - 9.90 K/cumm Comment:Testing performed by : [address] [address] Hgb 12.4 11.9 - 15.5 g/dL CRYS Comment:Testing performed by : [address] [address] Hct 37.8 35.6 - 45.5 % CRYS Comment:Testing performed by : [address] [address] Plt 193 150 - 400 K/cumm CRYS Comment:Testing performed by : [address] [address] MPV 9.6 9.1 - 12.3 fL [facility]YS Comment:Testing performed by : [address], [address] RBC 4.27 3.90 - 5.20 M/cumm CRYS Comment:Testing performed by : [address] [address] MCV 88.5 81.3 - 96.4 fL CRYS Comment:Testing performed by : [address] [address] MCH 29.0 27.1 - 33.3 pg CRYS Comment:Testing performed by : [address] [address] MCHC 32.8 32.3 - 35.7 g/dL CRYS Comment:Testing performed by : [address], [address] RDW CV 14.4 11.1 - 14.9 % CRYS Comment:Testing performed by : [address], [address] RDW SD 46.5 35.7 - 48.1 fL [facility] Comment:Testing performed by : [address], [address] NRBC abs 0.00 0.00 - 0.01 K/cumm CRYS Comment:Testing performed by : [address] [address] ANC Prelim 3.46 1.50 - 6.50 K/cumm CRYS ANTONIO Comment: Interpretive Data The rapid ANC is a preliminary automated count and may vary from the final ANC (Neut Abs) reported in the WBC differential that follows. Current interpretive data was last revised 2024. Testing performed by: [address] [address] Blood 01/10/2025 12:4 4 PM CDT 01/10/2025 12:51 PM CDT Doreen Petersen NP LAB BLOOD ORDERABLES F inal Result Performing Organization Address City/[facility] Co de Phone Number [address] [place] [address] * Lactate dehydrogenase (LD) (01/10/2025 12:44 PM CDT) Pathologist [facility] Lactate dehydrogenase (LDH) 196 100 - 250 Units/L Comment:Testing performed by : [address] [address] Blood 01/10/2025 12:4 4 PM CDT 01/10/2025 12:51 PM CDT Doeren Petersen NP LAB BLOOD ORDERABLES F inal Result Performing Organization Address [facility] Co de Phone Number [address] [employer] [place] [address] * Comprehensive metabolic panel (01/10/2025 12:44 PM CDT) Sodium 141 135 - 145 mmol/L Comment:Testing performed by : [address] [address] Potassium, pl 3.8 3.3 - 4.9 mmol/L CRYS Comment:Testing performed by : [address] [address] Chloride 105 97 - 110 mmol/L CRYS Comment:Testing performed by : [address] [address] CO2 26 22 - 32 mmol/L CRYS Comment:Testing performed by : [address] [address] Anion gap 10 2 - 15 mmol/L CRYS Comment:Testing performed by : [address] [address] BUN 14 6 - 25 mg/dL CRYS Comment:Testing performed by : [address], [place]., [address] Creatinine 0.60 0.60 - 1.10 mg/dL CRYS Comment:Testing performed by : [address] [address] Glucose 96 70 - 199 mg/dL CRYS Comment: Interpretive Data Fasting glucose >/= 126 mg/dl is diagnostic for diabetes. Fasting is defined as no caloric intake for at least 8 hours. Fasting glucose between 100 mg/dl to 125 mg/dl is diagnostic of prediabetes. In a patient with classic symptoms of hyperglycemia or hyperglycemic crisis, a random glucose >/= 200 mg/dl is diagnostic for diabetes. In the absence of unequivocal hyperglycemia, results should be confirmed by repeat testing. The classification and Diagnosis of Diabetes Diabetes Care 202; 46: S19-S40. Current interpretive data was last revised 2022. Testing performed by: [address] [address] Calcium 9.5 8.5 - 10.3 mg/dL CRYS Comment:Testing performed by : [address] [address] Bilirubin, total 0.3 0.1 - 1.2 mg/dL CRYS Comment:Testing performed by : [address] [address] Protein, pl 6.6 6.5 - 8.5 g/dL CRYS Comment:Testing performed by : [address] [address] Albumin 4.8 3.5 - 5.0 g/dL CRYS Comment:Testing performed by : [address] [place] [address] Alk phos 48 40 - 130 Units/L CRYS Comment:Testing performed by : [address] [address] ALT 24 7 - 45 Units/L CRYS Comment:Testing performed by : [address] [address] AST 24 10 - 45 Units/L CRYS Comment:Testing performed by : [address] [address] Blood 01/10/2025 12:4 4 PM CDT 01/10/2025 12:51 PM CDT Doreen Petersen BONE DRIER LAB BLOOD ORDERABLES F inal Result [facility] [address] [facility] Department [place] [address] * eGFR (12/13/2024 12:12 PM CDT) eGFR >90 >=60 mL/min/1. 73 m2 Comment: Interpretive Data Reference Interval Normal >/= 90 mL/min/1.73m2 Mildly decreased* 60 - 89 mL/min/1.73m2 Mildly to moderately decreased 45 - 59 mL/min/1.73m2 Moderately to severely decreased 30 - 44 mL/min/1.73m2 Severely decreased 15 - 29 mL/min/1.73m2 Kidney Failure < 15 mL/min/1.73m2 *Relative to young adult level Estimated glomerular filtration rate is determined by the 2020 CKD-EPI equation recommended by the National Kidney Foundation (A Unifying Approach to GFR Estimation: Recommendations of the NKF-ASK Task Force on Reassessing the Inclusion of Race in Diagnosing Kidney Disease, JASN 2020). The CKD-EPI equation should not be used for patients with unstable renal function and has not been validated in children and those over 70. Current interpretive data was last reviewed 2021. Testing performed by: [address] [address] Blood 12/13/2024 12:1 2 PM CDT 12/13/2024 12:13 PM CDT Doreen Petersen NP LAB BLOOD ORDERABLES F inal Result [facility] [address] [facility] Department [place] [address] * Differential, auto (12/13/2024 12:12 PM CDT) Neutrophil abs 4.3 1.5 - 6.5 K/cumm Comment:Testing performed by : [address] [address] Imm gran abs 0.1 0.0 - 0.1 K/cumm CRYS Comment:Testing performed by : [address] [address] Lymphocyte abs 1.8 0.8 - 3.3 K/cumm CRYS Comment:Testing performed by : [address] [address] Monocyte abs 0.7 0.2 - 0.8 K/cumm [facility] Comment:Testing performed by : [address] [address] Eosinophil abs 0.0 0.0 - 0.5 K/cumm CRYS Comment:Testing performed by : [address] [address] Basophil abs 0.0 0.0 - 0.1 K/cumm [facility] Comment:Testing performed by : [address] [address] Neutrophil pct 62.8 % [facility] Comment: Interpretive Data Percent cell count reference ranges are not reported, since discordance with absolute values may lead to misinterpretation of CBC data. Current Interpretive Data was last revised on 2018. Testing performed by: [address] [address] Imm gran pct 1.0 % [facility] Comment: Interpretive Data Percent cell count reference ranges are not reported, since discordance with absolute values may lead to misinterpretation of CBC data. Current Interpretive Data was last revised on 2018. Testing performed by: [address] [address] Lymphocyte pct 26.0 % [facility] Comment: Interpretive Data Percent cell count reference ranges are not reported, since discordance with absolute values may lead to misinterpretation of CBC data. Current Interpretive Data was last revised on 2018. Testing performed by: [address] [address] Monocyte pct 9.9 % [facility] Comment: Interpretive Data Percent cell count reference ranges are not reported, since discordance with absolute values may lead to misinterpretation of CBC data. Current Interpretive Data was last revised on 2018. Testing performed by: [address] [address] Eosinophil pct 0.0 % [facility] Comment: Interpretive Data Percent cell count reference ranges are not reported, since discordance with absolute values may lead to misinterpretation of CBC data. Current Interpretive Data was last revised on 2018. Testing performed by: [address] [address] Basophil pct 0.3 % [facility] Comment: Interpretive Data Percent cell count reference ranges are not reported, since discordance with absolute values may lead to misinterpretation of CBC data. Current Interpretive Data was last revised on 2018. Testing performed by: [address] [address] Blood 12/13/2024 12:1 2 PM CDT 12/13/2024 12:13 PM CDT us Doreen Petersen NP LAB BLOOD ORDERABLES F inal Result [facility] [address] [facility] Department [place] [address] * (ABNORMAL) CBC with auto differential (12/13/2024 12:12 PM CDT) WBC 6.9 3.8 - 9.9 K/cumm Comment:Testing performed by : [address] [place] [address] Hgb 12.6 11.9 - 15.5 g/dL CR[facility] Comment:Testing performed by : [address], [address] Hct 38.3 35.6 - 45.5 % [facility] Comment:Testing performed by : [address] [address] Plt 222 150 - 400 K/cumm [facility] Comment:Testing performed by : [address], [address] MPV 9.5 9.1 - 12.3 fL [facility] Comment:Testing performed by : [address], [address] RBC 4.33 3.90 - 5.20 M/cumm [facility] Comment:Testing performed by : [address], [address] MCV 88.5 81.3 - 96.4 fL [facility] Comment:Testing performed by : [address], [address] MCH 29.1 27.1 - 33.3 pg CR[facility] Comment:Testing performed by : [address] [address] MCHC 32.9 32.3 - 35.7 g/dL [facility] Comment:Testing performed by : [address], [address] RDW CV 14.8 11.1 - 14.9 % [facility] Comment:Testing performed by : [address] [address], [address] RDW SD 48.4(H) 35.7 - 48.1 fL [facility] Comment:Testing performed by : [address], [address] NRBC abs 0.00 0.00 - 0.01 K/cumm CR[facility] Comment:Testing performed by : [address] [address] Blood 12/13/2024 12:1 2 PM CDT 12/13/2024 12:13 PM CDT Doreen Petersen BONE DRIER LAB BLOOD ORDERABLES F inal Result Performing Organization Address City/[facility] Co de Phone Number CRYS [address] [address] * Lactate dehydrogenase (LD) (12/13/2024 12:12 PM CDT) Lactate dehydrogenase (LDH) 218 100 - 250 Units/L Comment:Testing performed by : [address] [address] Blood 12/13/2024 12:1 2 PM CDT 12/13/2024 12:13 PM CDT Doreen Petersen NP LAB BLOOD ORDERABLES F inal Result Performing Organization Address [facility] de Phone Number CRYS [address] [address] * Comprehensive metabolic panel (12/13/2024 12:12 PM CDT) Pathologist [facility] Sodium 139 135 - 145 mmol/L Comment:Testing performed by : [address] [address] Potassium, pl 3.5 3.3 - 4.9 mmol/L CRYS Comment:Testing performed by : [address] [address] Chloride 103 97 - 110 mmol/L CRYS Comment:Testing performed by : [address] [address] CO2 27 22 - 32 mmol/L CR[facility] Comment:Testing performed by : [address] [address] Anion gap 9 2 - 15 mmol/L [facility] Comment:Testing performed by : [address] [address] BUN 15 6 - 25 mg/dL CRYS Comment:Testing performed by : [address] [address] Creatinine 0.70 0.60 - 1.10 mg/dL [facility] Comment:Testing performed by : [address] [address] Glucose 115 70 - 199 mg/dL CRYS Comment: Interpretive Data Fasting glucose >/= 126 mg/dl is diagnostic for diabetes. Fasting is defined as no caloric intake for at least 8 hours. Fasting glucose between 100 mg/dl to 125 mg/dl is diagnostic of prediabetes. In a patient with classic symptoms of hyperglycemia or hyperglycemic crisis, a random glucose >/= 200 mg/dl is diagnostic for diabetes. In the absence of unequivocal hyperglycemia, results should be confirmed by repeat testing. The classification and Diagnosis of Diabetes Diabetes Care 2021; 46: S19-S40. Current interpretive data was last revised 2022. Testing performed by: [address] [address] Calcium 9.5 8.5 - 10.3 mg/dL [facility] Comment:Testing performed by : [address] [address] Bilirubin, total 0.3 0.1 - 1.2 mg/dL [facility]:Testing performed by : [address] [address] Protein, pl 6.7 6.5 - 8.5 g/dL [facility] Comment:Testing performed by : [address] [address] Albumin 4.8 3.5 - 5.0 g/dL [facility] Comment:Testing performed by : [address] [address] Alk phos 61 40 - 130 Units/L [facility] Comment:Testing performed by : [address] [address] ALT 26 7 - 45 Units/L [facility] Comment:Testing performed by : [address] [address] AST 23 10 - 45 Units/L [facility] Comment:Testing performed by : [address] [address] Blood 12/13/2024 12:1 2 PM CDT 12/13/2024 12:13 PM CDT Doreen Petersen NP LAB BLOOD ORDERABLES F inal Result Performing Organization Address [facility] Co de Phone Number CRYS [address] [place] [employer] [place] [address] * eGFR (11/12/2024 12:53 PM SESSIONS CLERK) [facility] eGFR >90 >=60 mL/min/1. 73 m2 Comment: Interpretive Data Reference Interval Normal >/= 90 mL/min/1.73m2 Mildly decreased* 60 - 89 mL/min/1.73m2 Mildly to moderately decreased 45 - 59 mL/min/1.73m2 Moderately to severely decreased 30 - 44 mL/min/1.73m2 Severely decreased 15 - 29 mL/min/1.73m2 Kidney Failure < 15 mL/min/1.73m2 *Relative to young adult level Estimated glomerular filtration rate is determined by the 2020 CKD-EPI equation recommended by the National Kidney Foundation (A Unifying Approach to GFR Estimation: Recommendations of the NKF-ASK Task Force on Reassessing the Inclusion of Race in Diagnosing Kidney Disease, JASN 2020). The CKD-EPI equation should not be used for patients with unstable renal function and has not been validated in children and those over 70. Current interpretive data was last reviewed 2021. Testing performed by: [facility], [address] [place] [address]., [address] Blood 11/12/2024 12:5 3 PM SESSIONS CLERK 11/12/2024 12:54 PM SESSIONS CLERK Doreen Petersen NP LAB BLOOD ORDERABLES F inal Result Performing Organization Address [facility] Co de Phone Number CRYS [address] [place] [address] * Differential, auto (11/12/2024 12:53 PM SESSIONS CLERK) Pathologist [facility] Neutrophil abs 4.3 1.5 - 6.5 K/cumm Comment:Testing performed by : [address] [address] Imm gran abs 0.1 0.0 - 0.1 K/cumm [facility] Comment:Testing performed by : [address] [address] Lymphocyte abs 1.8 0.8 - 3.3 K/cumm [facility] Comment:Testing performed by : [address] [address] Monocyte abs 0.7 0.2 - 0.8 K/cumm [facility] Comment:Testing performed by : [address], [place]., [address] Eosinophil abs 0.0 0.0 - 0.5 K/cumm [facility] Comment:Testing performed by : [address] [address] Basophil abs 0.0 0.0 - 0.1 K/cumm [facility] Comment:Testing performed by : [address] [address] Neutrophil pct 62.2 % [facility] Comment: Interpretive Data Percent cell count reference ranges are not reported, since discordance with absolute values may lead to misinterpretation of CBC data. Current Interpretive Data was last revised on 2018. Testing performed by: [address] [address] Imm gran pct 1.0 % [facility] Comment: Interpretive Data Percent cell count reference ranges are not reported, since discordance with absolute values may lead to misinterpretation of CBC data. Current Interpretive Data was last revised on 2018. Testing performed by: [address] [address] Lymphocyte pct 26.1 % [facility] Comment: Interpretive Data Percent cell count reference ranges are not reported, since discordance with absolute values may lead to misinterpretation of CBC data. Current Interpretive Data was last revised on 2018. Testing performed by: [address] [address] Monocyte pct 10.4 % [facility] Comment: Interpretive Data Percent cell count reference ranges are not reported, since discordance with absolute values may lead to misinterpretation of CBC data. Current Interpretive Data was last revised on 2018. Testing performed by: [address] [address] Eosinophil pct 0.0 % [facility] Comment: Interpretive Data Percent cell count reference ranges are not reported, since discordance with absolute values may lead to misinterpretation of CBC data. Current Interpretive Data was last revised on 2018. Testing performed by: [address] [address] Basophil pct 0.3 % [facility] Comment: Interpretive Data Percent cell count reference ranges are not reported, since discordance with absolute values may lead to misinterpretation of CBC data. Current Interpretive Data was last revised on 2018. Testing performed by: [address] [address] Blood 11/12/2024 12:5 3 PM SESSIONS CLERK 11/12/2024 12:54 PM SESSIONS CLERK Doreen Petersen BONE DRIER LAB BLOOD ORDERABLES F inal Result [facility] [address] [facility] Department of Laboratories [place], [place] [id number] * (ABNORMAL) CBC with auto differential (11/12/2024 12:53 PM SESSIONS CLERK) Pathologist [facility] WBC 6.9 3.8 - 9.9 K/cumm Comment:Testing performed by : [address] [address] Hgb 12.8 11.9 - 15.5 g/dL [facility] ANTONIO Comment:Testing performed by : [address] [address] Hct 39.0 35.6 - 45.5 % [facility]IO Comment:Testing performed by : [address] [address] Plt 228 150 - 400 K/cumm [facility] Comment:Testing performed by : [address] [address] MPV 9.7 9.1 - 12.3 fL [facility] [place] Comment:Testing performed by : [address] [address] RBC 4.45 3.90 - 5.20 M/cumm [facility] Comment:Testing performed by : [address] [address] MCV 87.6 81.3 - 96.4 fL [facility] [place] Comment:Testing performed by : [address] [address] MCH 28.8 27.1 - 33.3 pg [facility] Comment:Testing performed by : [address] [address] MCHC 32.8 32.3 - 35.7 g/dL [facility] Comment:Testing performed by : [address] [address] RDW CV 15.3(H) 11.1 - 14.9 % [facility] Comment:Testing performed by : [address], [address] RDW SD 49.2(H) 35.7 - 48.1 fL [facility] Comment:Testing performed by : [address] [address] NRBC abs 0.00 0.00 - 0.01 K/cumm [facility] [place]IO Comment:Testing performed by : [address] [address] Blood 11/12/2024 12:5 3 PM SESSIONS CLERK 11/12/2024 12:54 PM SESSIONS CLERK us Doreen Petersen NP LAB BLOOD ORDERABLES F inal Result [facility] [address] [facility] Department [place] [address] * Lactate dehydrogenase (LD) (11/12/2024 12:53 PM SESSIONS CLERK) Lactate dehydrogenase (LDH) 206 100 - 250 Units/L Comment:Testing performed by : [address], [address] Blood 11/12/2024 12:5 3 PM SESSIONS CLERK 11/12/2024 12:54 PM SESSIONS CLERK Doreen Petersen NP LAB BLOOD ORDERABLES F inal Result [facility] [address] [facility] Department [place] [address] * Comprehensive metabolic panel (11/12/2024 12:53 PM SESSIONS CLERK) Sodium 143 135 - 145 mmol/L Comment:Testing performed by : [address] [address] Potassium, pl 4.0 3.3 - 4.9 mmol/L [facility] Comment:Testing performed by : [address] [address] Chloride 105 97 - 110 mmol/L [facility] Comment:Testing performed by : [address] [address] CO2 26 22 - 32 mmol/L [facility] Comment:Testing performed by : [address] [address] Anion gap 12 2 - 15 mmol/L [facility] Comment:Testing performed by : [address] [address] BUN 16 6 - 25 mg/dL [facility] Comment:Testing performed by : [address] [address] Creatinine 0.60 0.60 - 1.10 mg/dL [facility] Comment:Testing performed by : [address] [address] Glucose 103 70 - 199 mg/dL [facility] Comment: Interpretive Data Fasting glucose >/= 126 mg/dl is diagnostic for diabetes. Fasting is defined as no caloric intake for at least 8 hours. Fasting glucose between 100 mg/dl to 125 mg/dl is diagnostic of prediabetes. In a patient with classic symptoms of hyperglycemia or hyperglycemic crisis, a random glucose >/= 200 mg/dl is diagnostic for diabetes. In the absence of unequivocal hyperglycemia, results should be confirmed by repeat testing. The classification and Diagnosis of Diabetes Diabetes Care 202; 46: S19-S40. Current interpretive data was last revised 2022. Testing performed by: [address] [address] Calcium 9.8 8.5 - 10.3 mg/dL [facility] Comment:Testing performed by : [address] [address] Bilirubin, total 0.3 0.1 - 1.2 mg/dL [facility] Comment:Testing performed by : [address] [address] Protein, pl 6.9 6.5 - 8.5 g/dL [facility] Comment:Testing performed by : [address] [address] Albumin 4.7 3.5 - 5.0 g/dL [facility] Comment:Testing performed by : [address] [address] Alk phos 61 40 - 130 Units/L [facility] Comment:Testing performed by : [address] [address] ALT 19 7 - 45 Units/L [facility] Comment:Testing performed by : [address] [address] AST 18 10 - 45 Units/L [facility] Comment:Testing performed by : [address] [address] Blood 11/12/2024 12:5 3 PM SESSIONS CLERK 11/12/2024 12:54 PM SESSIONS CLERK us Doreen Petersen BONE DRIER LAB BLOOD ORDERABLES F inal Result [facility] [address] [facility] Department [place] [address] * eGFR (11/01/2024 11:58 AM SESSIONS CLERK) eGFR >90 >=60 mL/min/1. 73 m2 Comment: Interpretive Data Reference Interval Normal >/= 90 mL/min/1.73m2 Mildly decreased* 60 - 89 mL/min/1.73m2 Mildly to moderately decreased 45 - 59 mL/min/1.73m2 Moderately to severely decreased 30 - 44 mL/min/1.73m2 Severely decreased 15 - 29 mL/min/1.73m2 Kidney Failure < 15 mL/min/1.73m2 *Relative to young adult level Estimated glomerular filtration rate is determined by the 2020 CKD-EPI equation recommended by the National Kidney Foundation (A Unifying Approach to GFR Estimation: Recommendations of the NKF-ASK Task Force on Reassessing the Inclusion of Race in Diagnosing Kidney Disease, JASN 2020). The CKD-EPI equation should not be used for patients with unstable renal function and has not been validated in children and those over 70. Current interpretive data was last reviewed 2021. Testing performed by: [address] [address] Blood 11/01/2024 11:5 8 AM SESSIONS CLERK 11/01/2024 12:05 PM SESSIONS CLERK us Barb Harding MD LAB BLOOD ORDERABLES Final Result [place] [address] [facility] Department of Laboratories [place], [place] [id number] * Differential, auto (11/01/2024 11:58 AM SESSIONS CLERK) Neutrophil abs 4.3 1.5 - 6.5 K/cumm Comment:Testing performed by : [address] [address] Imm gran abs 0.1 0.0 - 0.1 K/cumm [facility] Comment:Testing performed by : [address] [address] Lymphocyte abs 1.4 0.8 - 3.3 K/cumm [facility] Comment:Testing performed by : [address] [address] Monocyte abs 0.6 0.2 - 0.8 K/cumm [facility] Comment:Testing performed by : [address] [address] Eosinophil abs 0.0 0.0 - 0.5 K/cumm [facility] Comment:Testing performed by : [address] [address] Basophil abs 0.0 0.0 - 0.1 K/cumm [facility] Comment:Testing performed by : [address] [address] Neutrophil pct 67.2 % [facility] Comment: Interpretive Data Percent cell count reference ranges are not reported, since discordance with absolute values may lead to misinterpretation of CBC data. Current Interpretive Data was last revised on 2018. Testing performed by: [address] [address] Imm gran pct 0.8 % [facility] Comment: Interpretive Data Percent cell count reference ranges are not reported, since discordance with absolute values may lead to misinterpretation of CBC data. Current Interpretive Data was last revised on 2018. Testing performed by: [address] [address] Lymphocyte pct 21.9 % [facility] Comment: Interpretive Data Percent cell count reference ranges are not reported, since discordance with absolute values may lead to misinterpretation of CBC data. Current Interpretive Data was last revised on 2018. Testing performed by: [address] [address] Monocyte pct 9.8 % [facility] Comment: Interpretive Data Percent cell count reference ranges are not reported, since discordance with absolute values may lead to misinterpretation of CBC data. Current Interpretive Data was last revised on 2018. Testing performed by: [address] [address] Eosinophil pct 0.0 % [facility] Comment: Interpretive Data Percent cell count reference ranges are not reported, since discordance with absolute values may lead to misinterpretation of CBC data. Current Interpretive Data was last revised on 2018. Testing performed by: [address] [address] Basophil pct 0.3 % [facility] Comment: Interpretive Data Percent cell count reference ranges are not reported, since discordance with absolute values may lead to misinterpretation of CBC data. Current Interpretive Data was last revised on 2018. Testing performed by: [address] [address] Blood 11/01/2024 11:5 8 AM SESSIONS CLERK 11/01/2024 12:05 PM SESSIONS CLERK us Barb Harding MD LAB BLOOD ORDERABLES Final Result [facility] [address] [facility] Department [place] [address] * (ABNORMAL) CBC with auto differential (11/01/2024 11:58 AM SESSIONS CLERK) WBC 6.3 3.8 - 9.9 K/cumm Comment:Testing performed by : [address] [address] Hgb 12.3 11.9 - 15.5 g/dL [facility] Comment:Testing performed by : [address] [address] Hct 37.9 35.6 - 45.5 % [facility] Comment:Testing performed by : [address] [address] Plt 220 150 - 400 K/cumm [facility] Comment:Testing performed by : [address] [address] MPV 9.9 9.1 - 12.3 fL [facility] Comment:Testing performed by : [address] [address] RBC 4.32 3.90 - 5.20 M/cumm [facility] Comment:Testing performed by : [address] [address] MCV 87.7 81.3 - 96.4 fL [facility] Comment:Testing performed by : [address] [address] MCH 28.5 27.1 - 33.3 pg [facility] Comment:Testing performed by : [address] [address] MCHC 32.5 32.3 - 35.7 g/dL [facility] AN[facility]IO Comment:Testing performed by : [address], [address] RDW CV 15.4(H) 11.1 - 14.9 % [facility] Comment:Testing performed by : [address], [address] RDW SD 49.8(H) 35.7 - 48.1 fL [facility] [place] Comment:Testing performed by : [address] [address] NRBC abs 0.00 0.00 - 0.01 K/cumm [facility] Comment:Testing performed by : [address], [address] Blood 11/01/2024 11:5 8 AM SESSIONS CLERK 11/01/2024 12:05 PM SESSIONS CLERK Barb Harding MD LAB BLOOD ORDERABLES Final Result Performing Organization Address [facility] Co de Phone Number [address] [place] [address] * Lactate dehydrogenase (LD) (11/01/2024 11:58 AM SESSIONS CLERK) [facility] Lactate dehydrogenase (LDH) 191 100 - 250 Units/L Comment:Testing performed by : [address], [address] Blood 11/01/2024 11:5 8 AM SESSIONS CLERK 11/01/2024 12:05 PM SESSIONS CLERK Barb Harding MD LAB BLOOD ORDERABLES Final Result Performing Organization Address City/[facility] Co de Phone Number [address] [address] * (ABNORMAL) IgG (11/01/2024 11:58 AM SESSIONS CLERK) Pathologist [facility] Immunoglobulin G 511(L) 700 - 1,600 mg/dL Blood 11/01/2024 11:5 8 AM SESSIONS CLERK 11/01/2024 7:08 PM SESSIONS CLERK us Barb Harding MD LAB BLOOD ORDERABLES Final Result [facility] [address] [facility] Department [place] [address] * Comprehensive metabolic panel (11/01/2024 11:58 AM SESSIONS CLERK) Sodium 141 135 - 145 mmol/L Comment:Testing performed by : [address] [address] Potassium, pl 3.8 3.3 - 4.9 mmol/L [facility] Comment:Testing performed by : [address] [address] Chloride 105 97 - 110 mmol/L [facility] Comment:Testing performed by : [address] [address] CO2 25 22 - 32 mmol/L [facility] Comment:Testing performed by : [address] [address] Anion gap 11 2 - 15 mmol/L [facility] Comment:Testing performed by : [address] [address] BUN 14 6 - 25 mg/dL [facility] Comment:Testing performed by : [address] [address] Creatinine 0.60 0.60 - 1.10 mg/dL [facility] Comment:Testing performed by : [address] [address] Glucose 125 70 - 199 mg/dL [facility] Comment: Interpretive Data Fasting glucose >/= 126 mg/dl is diagnostic for diabetes. Fasting is defined as no caloric intake for at least 8 hours. Fasting glucose between 100 mg/dl to 125 mg/dl is diagnostic of prediabetes. In a patient with classic symptoms of hyperglycemia or hyperglycemic crisis, a random glucose >/= 200 mg/dl is diagnostic for diabetes. In the absence of unequivocal hyperglycemia, results should be confirmed by repeat testing. The classification and Diagnosis of Diabetes Diabetes Care 202; 46: S19-S40. Current interpretive data was last revised 2022. Testing performed by: [address] [address] Calcium 9.6 8.5 - 10.3 mg/dL [facility] Comment:Testing performed by : [address] [address] Bilirubin, total 0.2 0.1 - 1.2 mg/dL [facility] Comment:Testing performed by : [address] [address] Protein, pl 6.6 6.5 - 8.5 g/dL [facility] Comment:Testing performed by : [address] [address] Albumin 4.5 3.5 - 5.0 g/dL [facility] Comment:Testing performed by : [address] [address] Alk phos 58 40 - 130 Units/L [facility] Comment:Testing performed by : [address] [address] ALT 18 7 - 45 Units/L [facility]:Testing performed by : [address] [address] AST 18 10 - 45 Units/L [facility] Comment:Testing performed by : [address] [address] Blood 11/01/2024 11:5 8 AM SESSIONS CLERK 11/01/2024 12:05 PM SESSIONS CLERK Barb Harding MD LAB BLOOD ORDERABLES Final Result [facility] [address] [facility] Department [place] [address] * Colonoscopy (08/07/2023 1:35 PM SESSIONS CLERK) Anatomical Region Laterality Modality Other Historical Provider ENDOSCOPY PROCEDURES Kayy l Result from Last 3 Months or Most Recently Relevant to Health Maintenance Insurance BLUE ACCESS OOS ANTHEM PREFERRED [facility] CHOICE PLUS [employer] OOS Advance Directives For more information, please contact: [phone] * Full Code (Latest Code Status on File) Date Activated Date Inactivated Comments 02/18/2024 11:16 AM 02/19/2024 4:39 AM Care Teams Grocery Cashier Relationship Specialty Start Date End Date Malissa Soriano MD [address] [facility] [address] [place], [place] [id number] PCP - General Family Practice 12/13/24 Barb Harding MD [address] DIV IM [employer], [address] [place] [address] Medical Oncologist/Community Development Coordinator Hematology 01/05/24 Tommy Cerda MD [address] [place] [address] Referring Physician Gastroenterology 01/09/24
--- OUTSIDE RECORDS SUMMARY | 2025-01-29 15:59 | XMS_ITS | Referral Summary ---
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) (Primary Dx) 01/10/2025 12:30 PM CDT Lab [address] [address] Chronic lymphocytic leukemia of B-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 (HCC) 01/05/2025 Orders Only [facility] Oncology [address] [place] [address] [address] [place] [phone] Barb Harding MD 01/04/2025 Orders Only [facility] Oncology [address] [place] [address] [address] [place] [phone] Barb Harding MD 12/13/2024 12:00 PM CDT Lab [address] [address] Chronic lymphocytic leukemia of B-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 (HCC) 12/13/2024 12:45 PM CDT Infusion [facility] [place] at [address] [phone] Chronic lymphocytic leukemia of B-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 (HCC) (Primary Dx) 12/13/2024 12:20 PM CDT Office Visit [facility] Bone Marrow Transplant [address] [place] [phone] Doreen Petersen NP Chronic lymphocytic leukemia of B-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 (HCC) (Primary Dx) 11/12/2024 1:15 PM SENIOR FINANCIAL REPORTING ACCOUNTANT Infusion [facility] [place] at [address] [phone] Chronic lymphocytic leukemia of B-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 (HCC) (Primary Dx) 11/12/2024 12:45 PM SENIOR FINANCIAL REPORTING ACCOUNTANT Lab [facility] at [address] [address] Chronic lymphocytic leukemia of B-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 (HCC) 11/07/2024 Orders Only [facility] Oncology [address] [place] [phone] Barb Harding MD 11/01/2024 11:45 AM SENIOR FINANCIAL REPORTING ACCOUNTANT Lab [facility] at [address] [address] Chronic lymphocytic leukemia of B-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 (HCC) 11/01/2024 12:40 PM SENIOR FINANCIAL REPORTING ACCOUNTANT Office Visit [facility] Bone Marrow Transplant [address] [place] [phone] Doreen Petersen NP Chronic lymphocytic leukemia of B-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 (HCC) (Primary Dx) from Last 3 Months Allergies Active Allergy Reactions Criticality Noted Date [...] 05/24/2024 Chronic lymphocytic leukemia (CLL), B-cell 03/25 Immunizations Immunization Administration Dates Next Due Influenza, Quadrivalent, Steph l Culture-based MDCK, Preservative Free, Antibiotic Free, Intramuscular 07/11/2021,07/12/2020 Influenza, Trivalent, Cell C ulture-based MDCK, Preservative Free, Antibiotic Free, Intramuscular 07/23/2024 Influenza, Unspecified 07/07/2019,07/21/2018,09/2016 Pfizer SARS-CoV-2 Monovalent Vaccination (12+ Yrs) PURPLE 06/19/2021,12/23/2020,11/30/2020 Social History Tobacco Use Types Packs/Day Years [...] on file Legal Sex Female 8:39 AM SENIOR FINANCIAL REPORTING ACCOUNTANT Gender Identity Not on file Sexual Orientation Not on file Last Filed Vital Signs Vital Sign Reading [...] Body Mass Index 28.11 11/01/2024 12:06 PM SENIOR FINANCIAL REPORTING ACCOUNTANT Plan of Treatment Not on file Procedures Procedure Name Priority Date/Time Associated Diagnosis [...] remission (HCC) EGFR STAT 11/12/2024 12:53 PM SENIOR FINANCIAL REPORTING ACCOUNTANT Chronic lymphocytic leukemia of B-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 (HCC) DIFFERENTIAL AUTO STAT 11/12/2024 12: 53 PM SENIOR FINANCIAL REPORTING ACCOUNTANT Chronic lymphocytic leukemia of B-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 (HCC) CBC WITH AUTO DIFFERENTIAL STAT 11/12/2024 12:53 PM SENIOR FINANCIAL REPORTING ACCOUNTANT Chronic lymphocytic leukemia of B-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 (HCC) COMPREHENSIVE METABOLIC PANEL STAT 11/12/2024 12:53 PM SENIOR FINANCIAL REPORTING ACCOUNTANT Chronic lymphocytic leukemia of B-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 (HCC) LACTATE DEHYDROGENASE Routine 11/12/2024 12:53 PM SENIOR FINANCIAL REPORTING ACCOUNTANT Chronic lymphocytic leukemia of B-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 (HCC) EGFR Routine 11/01/2024 11:58 AM SENIOR FINANCIAL REPORTING ACCOUNTANT Chronic lymphocytic leukemia of B-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 (HCC) DIFFERENTIAL AUTO Routine 11/01/2024 11: 58 AM SENIOR FINANCIAL REPORTING ACCOUNTANT Chronic lymphocytic leukemia of B-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 (HCC) CBC WITH AUTO DIFFERENTIAL Routine 11/01/2024 11:58 AM SENIOR FINANCIAL REPORTING ACCOUNTANT Chronic lymphocytic leukemia of B-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 (HCC) COMPREHENSIVE METABOLIC PANEL Routine 11/01/2024 11:58 AM SENIOR FINANCIAL REPORTING ACCOUNTANT Chronic lymphocytic leukemia of B-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 (HCC) LACTATE DEHYDROGENASE Routine 11/01/2024 11:58 AM SENIOR FINANCIAL REPORTING ACCOUNTANT Chronic lymphocytic leukemia of B-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 (HCC) IGG Routine 11/01/2024 11:58 AM SENIOR FINANCIAL REPORTING ACCOUNTANT Chronic lymphocytic leukemia of B-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 (HCC) COLONOSCOPY Routine 08/07/2023 1:35 PM SENIOR FINANCIAL REPORTING ACCOUNTANT from Last 3 Months or Most Recently [...] of Race in Diagnosing Kidney Disease, JASN 202). The CKD-EPI equation should not be used for patients with unstable renal function and has not been validated in children and those over 70. Current interpretive data was last reviewed 2021. Testing performed by: [address] [address] Blood 01/10/2025 12:4 4 PM CDT 01/10/2025 12:51 PM CDT Doreen Petersen NP LAB BLOOD ORDERABLES F inal Result [facility] [place] [address] * Differential, auto (01/10/2025 12:44 PM CDT) Neutrophil abs 3.46 1.50 - 6.50 K/cumm Comment:Testing performed by : [address] [address] Imm gran abs 0.03 0.00 - 0.10 K/cumm [facility] Comment:Testing performed by : [address] [address] Lymphocyte abs 1.34 0.80 - 3.30 K/cumm [facility] Comment:Testing performed by : [address] [address] Monocyte abs 0.55 0.20 - 0.80 K/cumm [facility] Comment:Testing performed by : [address] [address] Eosinophil abs 0.00 0.00 - 0.50 K/cumm [facility] Comment:Testing performed by : [address] [address] Basophil abs 0.01 0.00 - 0.10 K/cumm [facility] Comment:Testing performed by : [address] [address] Neutrophil pct 64.1 % [facility] Comment: Interpretive Data Percent cell count reference ranges are not reported, since discordance with absolute values may lead to misinterpretation of CBC data. Current Interpretive Data was last revised on 2018. Testing performed by: [address] [address] Imm gran pct 0.6 % [facility] Comment: Interpretive Data Percent cell count reference ranges are not reported, since discordance with absolute values may lead to misinterpretation of CBC data. Current Interpretive Data was last revised on 2018. Testing performed by: [address] [address] Lymphocyte pct 24.9 % [facility] Comment: Interpretive Data Percent cell count reference ranges are not reported, since discordance with absolute values may lead to misinterpretation of CBC data. Current Interpretive Data was last revised on 2018. Testing performed by: [address] [address] Monocyte pct 10.2 % [facility] Comment: Interpretive Data Percent cell count reference ranges are not reported, since discordance with absolute values may lead to misinterpretation of CBC data. Current Interpretive Data was last revised on 2018. Testing performed by: [address] [address] Eosinophil pct 0.0 % [facility] Comment: Interpretive Data Percent cell count reference ranges are not reported, since discordance with absolute values may lead to misinterpretation of CBC data. Current Interpretive Data was last revised on 2018. Testing performed by: [address] [address] Basophil pct 0.2 % [facility] Comment: Interpretive Data Percent cell count reference ranges are not reported, since discordance with absolute values may lead to misinterpretation of CBC data. Current Interpretive Data was last revised on 2018. Testing performed by: [address] [address] Blood 01/10/2025 12:4 4 PM CDT 01/10/2025 12:51 PM CDT us Doreen Petersen NP LAB BLOOD ORDERABLES F inal Result [facility] [address] [facility] [place] [address] * CBC with auto differential (01/10/2025 12:44 PM CDT) WBC 5.39 3.80 - 9.90 K/cumm Comment:Testing performed by : [address] [address] Hgb 12.4 11.9 - 15.5 g/dL [facility] Comment:Testing performed by : [address], [address] Hct 37.8 35.6 - 45.5 % [facility] Comment:Testing performed by : [address] [address] Plt 193 150 - 400 K/cumm [facility] Comment:Testing performed by : [address] [address] MPV 9.6 9.1 - 12.3 fL [facility] Comment:Testing performed by : [address] [address] RBC 4.27 3.90 - 5.20 M/cumm [facility] Comment:Testing performed by : [address] [address] MCV 88.5 81.3 - 96.4 fL [facility] Comment:Testing performed by : [address] [address] MCH 29.0 27.1 - 33.3 pg [facility] Comment:Testing performed by : [address] [address] MCHC 32.8 32.3 - 35.7 g/dL [facility] Comment:Testing performed by : [address] [address] RDW CV 14.4 11.1 - 14.9 % [facility] Comment:Testing performed by : [address], [address] RDW SD 46.5 35.7 - 48.1 fL [facility] Comment:Testing performed by : [address] [address] NRBC abs 0.00 0.00 - 0.01 K/cumm [facility] Comment:Testing performed by : [address] [address] ANC Prelim 3.46 1.50 - 6.50 K/cumm [facility] Comment: Interpretive Data The rapid ANC is a preliminary automated count and may vary from the final ANC (Neut Abs) reported in the WBC differential that follows. Current interpretive data was last revised 2024. Testing performed by: [address] [address] Blood 01/10/2025 12:4 4 PM CDT 01/10/2025 12:51 PM CDT Doreen Petersen INSURANCE BILLER LAB BLOOD ORDERABLES F inal Result Performing Organization Address City/[facility]/ZIP Co de Phone Number [address] [place] [address] * Lactate dehydrogenase (LD) (01/10/2025 12:44 PM CDT) Lactate dehydrogenase (LDH) 196 100 - 250 Units/L Comment:Testing performed by : [address] [address] Blood 01/10/2025 12:4 4 PM CDT 01/10/2025 12:51 PM CDT Doreen Petersen INSURANCE BILLER LAB BLOOD ORDERABLES F inal Result [address] [address] * Comprehensive metabolic panel (01/10/2025 12:44 PM CDT) Sodium 141 135 - 145 mmol/L Comment:Testing performed by : [address] [address] Potassium, pl 3.8 3.3 - 4.9 mmol/L [facility] Comment:Testing performed by : [address] [address] Chloride 105 97 - 110 mmol/L [facility] Comment:Testing performed by : [address], [place]., [address] CO2 26 22 - 32 mmol/L [facility] Comment:Testing performed by : [address], [place]., [address] Anion gap 10 2 - 15 mmol/L [facility] Comment:Testing performed by : [address], [place]., [address] BUN 14 6 - 25 mg/dL [facility] Comment:Testing performed by : [address], [place]., [address] Creatinine 0.60 0.60 - 1.10 mg/dL [facility] Comment:Testing performed by : [address] [address] Glucose 96 70 - 199 mg/dL [facility] Comment: Interpretive Data Fasting glucose >/= 126 [...] was last revised 2022. Testing performed by: [address] [address] Calcium 9.5 8.5 - 10.3 mg/dL [facility] Comment:Testing performed by : [address] [address] Bilirubin, total 0.3 0.1 - 1.2 mg/dL [facility] Comment:Testing performed by : [address] [address] Protein, pl 6.6 6.5 - 8.5 g/dL [facility] Comment:Testing performed by : [address] [address] Albumin 4.8 3.5 - 5.0 g/dL [facility] Comment:Testing performed by : [address] [address] Alk phos 48 40 - 130 Units/L [facility] Comment:Testing performed by : [address] [address] ALT 24 7 - 45 Units/L [facility] Comment:Testing performed by : [address] [address] AST 24 10 - 45 Units/L [facility] Comment:Testing performed by : [address] [address] Blood 01/10/2025 12:4 4 PM CDT 01/10/2025 12:51 PM CDT Doreen Petersen NP LAB BLOOD ORDERABLES F inal Result [place] [id number] [facility] [place] [address] * eGFR (12/13/2024 12:12 PM CDT) eGFR [...] was last reviewed 2021. Testing performed by: [address] [address] Blood 12/13/2024 12:1 2 PM CDT 12/13/2024 12:13 PM CDT Doreen Petersen NP LAB BLOOD ORDERABLES F inal Result [facility] [address] [facility] Department [place] [address] * Differential, auto (12/13/2024 12:12 PM CDT) Neutrophil abs 4.3 1.5 - 6.5 K/cumm Comment:Testing performed by : [address] [address] Imm gran abs 0.1 0.0 - 0.1 K/cumm [facility] Comment:Testing performed by : [address] [address] Lymphocyte abs 1.8 0.8 - 3.3 K/cumm [facility] Comment:Testing performed by : [address] [address] Monocyte abs 0.7 0.2 - 0.8 K/cumm [facility] Comment:Testing performed by : [address] [address] Eosinophil abs 0.0 0.0 - 0.5 K/cumm [facility] Comment:Testing performed by : [address] [address] Basophil abs 0.0 0.0 - 0.1 K/cumm [facility] Comment:Testing performed by : [address] [address] Neutrophil pct 62.8 % [facility] Comment: Interpretive Data Percent cell count reference ranges are not reported, since discordance with absolute values may lead to misinterpretation of CBC data. Current Interpretive Data was last revised on 2018. Testing performed by: [address] [address] Imm gran pct 1.0 % [facility] Comment: Interpretive Data Percent cell count reference ranges are not reported, since discordance with absolute values may lead to misinterpretation of CBC data. Current Interpretive Data was last revised on 2018. Testing performed by: [address] [address] Lymphocyte pct 26.0 % [facility] Comment: Interpretive Data Percent cell count reference ranges are not reported, since discordance with absolute values may lead to misinterpretation of CBC data. Current Interpretive Data was last revised on 2018. Testing performed by: [address] [address] Monocyte pct 9.9 % [facility] Comment: Interpretive Data Percent cell count reference ranges are not reported, since discordance with absolute values may lead to misinterpretation of CBC data. Current Interpretive Data was last revised on 2018. Testing performed by: [address] [address] Eosinophil pct 0.0 % [facility] Comment: Interpretive Data Percent cell count reference ranges are not reported, since discordance with absolute values may lead to misinterpretation of CBC data. Current Interpretive Data was last revised on 2018. Testing performed by: [address] [address] Basophil pct 0.3 % [facility] Comment: Interpretive Data Percent cell count reference ranges are not reported, since discordance with absolute values may lead to misinterpretation of CBC data. Current Interpretive Data was last revised on 2018. Testing performed by: [address] [address] Blood 12/13/2024 12:1 2 PM CDT 12/13/2024 12:13 PM CDT us Doreen Petersen NP LAB BLOOD ORDERABLES F inal Result [facility] [address] [facility] Department [place] [address] * (ABNORMAL) CBC with auto differential (12/13/2024 12:12 PM CDT) [facility] WBC 6.9 3.8 - 9.9 K/cumm Comment:Testing performed by : [address] [address] Hgb 12.6 11.9 - 15.5 g/dL [facility] Comment:Testing performed by : [address] [address] Hct 38.3 35.6 - 45.5 % [facility] Comment:Testing performed by : [address] [address] Plt 222 150 - 400 K/cumm [facility] Comment:Testing performed by : [address] [address] MPV 9.5 9.1 - 12.3 fL [facility] Comment:Testing performed by : [address] [address] RBC 4.33 3.90 - 5.20 M/cumm [facility] Comment:Testing performed by : [address] [address] MCV 88.5 81.3 - 96.4 fL [facility] Comment:Testing performed by : [address] [address] MCH 29.1 27.1 - 33.3 pg [facility] Comment:Testing performed by : [address], [address] MCHC 32.9 32.3 - 35.7 g/dL [facility] Comment:Testing performed by : [address] [address] RDW CV 14.8 11.1 - 14.9 % [facility] Comment:Testing performed by : [address] [address] RDW SD 48.4(H) 35.7 - 48.1 fL [facility] Comment:Testing performed by : [address] [address] NRBC abs 0.00 0.00 - 0.01 K/cumm [facility] Comment:Testing performed by : [address] [address] Blood 12/13/2024 12:1 2 PM CDT 12/13/2024 12:13 PM CDT Doreen Petersen INSURANCE BILLER LAB BLOOD ORDERABLES F inal Result Performing Organization Address [facility] de Phone Number [address] [place] [address] * Lactate dehydrogenase (LD) (12/13/2024 12:12 PM CDT) [facility] Lactate dehydrogenase (LDH) 218 100 - 250 Units/L Comment:Testing performed by : [address] [address] Blood 12/13/2024 12:1 2 PM CDT 12/13/2024 12:13 PM CDT Doreen Petersen NP LAB BLOOD ORDERABLES F inal Result Performing Organization Address [facility] de Phone Number [address] [address] * Comprehensive metabolic panel (12/13/2024 12:12 PM CDT) [facility] Sodium 139 135 - 145 mmol/L Comment:Testing performed by : [address] [address] Potassium, pl 3.5 3.3 - 4.9 mmol/L [facility] Comment:Testing performed by : [address] [address] Chloride 103 97 - 110 mmol/L [facility] Comment:Testing performed by : [address] [address] CO2 27 22 - 32 mmol/L [facility] Comment:Testing performed by : [address] [address] Anion gap 9 2 - 15 mmol/L [facility] Comment:Testing performed by : [address] [address] BUN 15 6 - 25 mg/dL [facility] Comment:Testing performed by : [address] [address] Creatinine 0.70 0.60 - 1.10 mg/dL [facility] Comment:Testing performed by : [address] [address] Glucose 115 70 - 199 mg/dL [facility] [...] was last revised 2022. Testing performed by: [address] [address] Calcium 9.5 8.5 - 10.3 mg/dL [facility] Comment:Testing performed by : [address] [address] Bilirubin, total 0.3 0.1 - 1.2 mg/dL [facility] Comment:Testing performed by : [address] [address] Protein, pl 6.7 6.5 - 8.5 g/dL [facility] Comment:Testing performed by : [address] [address] Albumin 4.8 3.5 - 5.0 g/dL [facility] Comment:Testing performed by : [address] [address] Alk phos 61 40 - 130 Units/L [facility] Comment:Testing performed by : [address] [address] ALT 26 7 - 45 Units/L [facility] Comment:Testing performed by : [facility], [address] [place] [address]., [address] AST 23 10 - 45 Units/L [facility] Comment:Testing performed by : [address] [address] Blood 12/13/2024 12:1 2 PM CDT 12/13/2024 12:13 PM CDT Doreen Petersen NP LAB BLOOD ORDERABLES F inal Result Performing Organization Address [facility] Co de Phone Number [facility] [place] [address] * eGFR (11/12/2024 12:53 PM SENIOR FINANCIAL REPORTING ACCOUNTANT) eGFR >90 >=60 mL/min/1. 73 m2 Comment: [...] was last reviewed 2021. Testing performed by: [address] [address] Blood 11/12/2024 12:5 3 PM SENIOR FINANCIAL REPORTING ACCOUNTANT 11/12/2024 12:54 PM SENIOR FINANCIAL REPORTING ACCOUNTANT Doreen Petersen NP LAB BLOOD ORDERABLES F inal Result Performing Organization Address City/[facility]/ZIP Co de Phone Number [facility] [address] [facility] [place] [address] * Differential, auto (11/12/2024 12:53 PM SENIOR FINANCIAL REPORTING ACCOUNTANT) Neutrophil abs 4.3 1.5 - 6.5 K/cumm Comment:Testing performed by : [address] [address] Imm gran abs 0.1 0.0 - 0.1 K/cumm [facility] Comment:Testing performed by : [address] [address] Lymphocyte abs 1.8 0.8 - 3.3 K/cumm [facility] Comment:Testing performed by : [address] [address] Monocyte abs 0.7 0.2 - 0.8 K/cumm [facility] Comment:Testing performed by : [address] [address] Eosinophil abs 0.0 0.0 - 0.5 K/cumm [facility] Comment:Testing performed by : [address] [address] Basophil abs 0.0 0.0 - 0.1 K/cumm [facility] Comment:Testing performed by : [address] [address] Neutrophil pct 62.2 % [facility] Comment: Interpretive Data Percent cell count reference ranges are not reported, since discordance with absolute values may lead to misinterpretation of CBC data. Current Interpretive Data was last revised on 2018. Testing performed by: [address] [address] Imm gran pct 1.0 % [facility] Comment: Interpretive Data Percent cell count reference ranges are not reported, since discordance with absolute values may lead to misinterpretation of CBC data. Current Interpretive Data was last revised on 2018. Testing performed by: [address] [address] Lymphocyte pct 26.1 % [facility] Comment: Interpretive Data Percent cell count reference ranges are not reported, since discordance with absolute values may lead to misinterpretation of CBC data. Current Interpretive Data was last revised on 2018. Testing performed by: [address] [address] Monocyte pct 10.4 % [facility] Comment: Interpretive Data Percent cell count reference ranges are not reported, since discordance with absolute values may lead to misinterpretation of CBC data. Current Interpretive Data was last revised on 2018. Testing performed by: [address] [address] Eosinophil pct 0.0 % [facility] Comment: Interpretive Data Percent cell count reference ranges are not reported, since discordance with absolute values may lead to misinterpretation of CBC data. Current Interpretive Data was last revised on 2018. Testing performed by: [address] [address] Basophil pct 0.3 % [facility] Comment: Interpretive Data Percent cell count reference ranges are not reported, since discordance with absolute values may lead to misinterpretation of CBC data. Current Interpretive Data was last revised on 2018. Testing performed by: [address] [address] Blood 11/12/2024 12:5 3 PM SENIOR FINANCIAL REPORTING ACCOUNTANT 11/12/2024 12:54 PM SENIOR FINANCIAL REPORTING ACCOUNTANT us Doreen Petersen INSURANCE BILLER LAB BLOOD ORDERABLES F inal Result [facility] [address] [facility] Department of Laboratories [place], [place] [id number] * (ABNORMAL) CBC with auto differential (11/12/2024 12:53 PM SENIOR FINANCIAL REPORTING ACCOUNTANT) WBC 6.9 3.8 - 9.9 K/cumm Comment:Testing performed by : [address] [address] Hgb 12.8 11.9 - 15.5 g/dL [facility]IO Comment:Testing performed by : [address] [address] Hct 39.0 35.6 - 45.5 % [facility] Comment:Testing performed by : [address] [address] Plt 228 150 - 400 K/cumm [facility] AN[facility]IO Comment:Testing performed by : [address] [address] MPV 9.7 9.1 - 12.3 fL [facility] Comment:Testing performed by : [address] [address] RBC 4.45 3.90 - 5.20 M/cumm [facility] Comment:Testing performed by : [address] [address] MCV 87.6 81.3 - 96.4 fL [facility] Comment:Testing performed by : [address] [address] MCH 28.8 27.1 - 33.3 pg [facility] Comment:Testing performed by : [address] [address] [address] MCHC 32.8 32.3 - 35.7 g/dL [facility] ANTONIO Comment:Testing performed by : [address] [address] RDW CV 15.3(H) 11.1 - 14.9 % CR[facility] Comment:Testing performed by : [address] [address] RDW SD 49.2(H) 35.7 - 48.1 fL [facility] ANTONIO Comment:Testing performed by : [address] [address] NRBC abs 0.00 0.00 - 0.01 K/cumm [facility] ANTONIO Comment:Testing performed by : [address] [address] Blood 11/12/2024 12:5 3 PM SENIOR FINANCIAL REPORTING ACCOUNTANT 11/12/2024 12:54 PM SENIOR FINANCIAL REPORTING ACCOUNTANT us Doreen Petersen NP LAB BLOOD ORDERABLES F inal Result [facility] [address] [facility] [place] [address] * Lactate dehydrogenase (LD) (11/12/2024 12:53 PM SENIOR FINANCIAL REPORTING ACCOUNTANT) Lactate dehydrogenase (LDH) 206 100 - 250 Units/L Comment:Testing performed by : [address] [address] Blood 11/12/2024 12:5 3 PM SENIOR FINANCIAL REPORTING ACCOUNTANT 11/12/2024 12:54 PM SENIOR FINANCIAL REPORTING ACCOUNTANT Doreen Petersen INSURANCE BILLER LAB BLOOD ORDERABLES F inal Result [facility] [address] [facility] [place] [address] * Comprehensive metabolic panel (11/12/2024 12:53 PM SENIOR FINANCIAL REPORTING ACCOUNTANT) Pathologist [facility] Sodium 143 135 - 145 mmol/L Comment:Testing performed by : [address] [address] Potassium, pl 4.0 3.3 - 4.9 mmol/L CRYS Comment:Testing performed by : [address] [address] Chloride 105 97 - 110 mmol/L CRYS Comment:Testing performed by : [address] [address] CO2 26 22 - 32 mmol/L CRYS Comment:Testing performed by : [address] [address] Anion gap 12 2 - 15 mmol/L CRYS Comment:Testing performed by : [address] [address] BUN 16 6 - 25 mg/dL CRYS Comment:Testing performed by : [address] [address] Creatinine 0.60 0.60 - 1.10 mg/dL CR[facility] Comment:Testing performed by : [address] [address] Glucose 103 70 - 199 mg/dL CRYS [...] was last revised 2022. Testing performed by: [address] [address] Calcium 9.8 8.5 - 10.3 mg/dL CRYS Comment:Testing performed by : [address] [address] Bilirubin, total 0.3 0.1 - 1.2 mg/dL CRYS Comment:Testing performed by : [address] [address] Protein, pl 6.9 6.5 - 8.5 g/dL CRYS Comment:Testing performed by : [address] [address] Albumin 4.7 3.5 - 5.0 g/dL CRYS Comment:Testing performed by : [address] [address] Alk phos 61 40 - 130 Units/L CRYS Comment:Testing performed by : [address] [address] ALT 19 7 - 45 Units/L CRYS Comment:Testing performed by : [address] [address] AST 18 10 - 45 Units/L CRYS Comment:Testing performed by : [address] [address] Blood 11/12/2024 12:5 3 PM SENIOR FINANCIAL REPORTING ACCOUNTANT 11/12/2024 12:54 PM SENIOR FINANCIAL REPORTING ACCOUNTANT us Doreen Petersen NP LAB BLOOD ORDERABLES F inal Result [facility] [address] [facility] Department [place] [address] * eGFR (11/01/2024 11:58 AM SENIOR FINANCIAL REPORTING ACCOUNTANT) eGFR >90 >=60 mL/min/1. 73 m2 Comment: [...] was last reviewed 2021. Testing performed by: [address] [address] Blood 11/01/2024 11:5 8 AM SENIOR FINANCIAL REPORTING ACCOUNTANT 11/01/2024 12:05 PM SENIOR FINANCIAL REPORTING ACCOUNTANT us Barb Harding MD LAB BLOOD ORDERABLES Final Result [facility] [address] [facility] Department [place] [address] * Differential, auto (11/01/2024 11:58 AM SENIOR FINANCIAL REPORTING ACCOUNTANT) Pathologist [facility] Neutrophil abs 4.3 1.5 - 6.5 K/cumm Comment:Testing performed by : [address] [address] Imm gran abs 0.1 0.0 - 0.1 K/cumm CRYS Comment:Testing performed by : [address] [address] Lymphocyte abs 1.4 0.8 - 3.3 K/cumm CRYS Comment:Testing performed by : [address] [address] Monocyte abs 0.6 0.2 - 0.8 K/cumm CRYS Comment:Testing performed by : [address] [address] Eosinophil abs 0.0 0.0 - 0.5 K/cumm [facility] Comment:Testing performed by : [address] [address] Basophil abs 0.0 0.0 - 0.1 K/cumm [facility] Comment:Testing performed by : [address] [address] Neutrophil pct 67.2 % [facility] Comment: Interpretive Data Percent cell count reference ranges are not reported, since discordance with absolute values may lead to misinterpretation of CBC data. Current Interpretive Data was last revised on 2018. Testing performed by: [address] [address] Imm gran pct 0.8 % [facility] Comment: Interpretive Data Percent cell count reference ranges are not reported, since discordance with absolute values may lead to misinterpretation of CBC data. Current Interpretive Data was last revised on 2018. Testing performed by: [address] [address] Lymphocyte pct 21.9 % [facility] Comment: Interpretive Data Percent cell count reference ranges are not reported, since discordance with absolute values may lead to misinterpretation of CBC data. Current Interpretive Data was last revised on 2018. Testing performed by: [address] [address] Monocyte pct 9.8 % [facility] Comment: Interpretive Data Percent cell count reference ranges are not reported, since discordance with absolute values may lead to misinterpretation of CBC data. Current Interpretive Data was last revised on 2018. Testing performed by: [address] [address] Eosinophil pct 0.0 % [facility] Comment: Interpretive Data Percent cell count reference ranges are not reported, since discordance with absolute values may lead to misinterpretation of CBC data. Current Interpretive Data was last revised on 2018. Testing performed by: [address] [address] Basophil pct 0.3 % [facility] AN[facility]IO Comment: Interpretive Data Percent cell count reference ranges are not reported, since discordance with absolute values may lead to misinterpretation of CBC data. Current Interpretive Data was last revised on 2018. Testing performed by: [address] [address] Blood 11/01/2024 11:5 8 AM SENIOR FINANCIAL REPORTING ACCOUNTANT 11/01/2024 12:05 PM SENIOR FINANCIAL REPORTING ACCOUNTANT us Barb Harding MD LAB BLOOD ORDERABLES Final Result [facility] Department [place] [address] * (ABNORMAL) CBC with auto differential (11/01/2024 11:58 AM SENIOR FINANCIAL REPORTING ACCOUNTANT) WBC 6.3 3.8 - 9.9 K/cumm Comment:Testing performed by : [address] [address] Hgb 12.3 11.9 - 15.5 g/dL [facility] AN[facility]IO Comment:Testing performed by : [address] [address] Hct 37.9 35.6 - 45.5 % [facility] ANTONIO Comment:Testing performed by : [address] [address] Plt 220 150 - 400 K/cumm [facility] ANTONIO Comment:Testing performed by : [address] [address] MPV 9.9 9.1 - 12.3 fL [facility]IO Comment:Testing performed by : [address] [address] RBC 4.32 3.90 - 5.20 M/cumm [facility] AN[facility]IO Comment:Testing performed by : [address] [address] MCV 87.7 81.3 - 96.4 fL [facility]IO Comment:Testing performed by : [address] [address] MCH 28.5 27.1 - 33.3 pg [facility] ANTONIO Comment:Testing performed by : [address] [address] MCHC 32.5 32.3 - 35.7 g/dL [facility] ANTONIO Comment:Testing performed by : [address] [address] RDW CV 15.4(H) 11.1 - 14.9 % CR[facility] Comment:Testing performed by : [address] [address] RDW SD 49.8(H) 35.7 - 48.1 fL CRYS Comment:Testing performed by : [address] [address] NRBC abs 0.00 0.00 - 0.01 K/cumm CRYS Comment:Testing performed by : [address] [address] Blood 11/01/2024 11:5 8 AM SENIOR FINANCIAL REPORTING ACCOUNTANT 11/01/2024 12:05 PM SENIOR FINANCIAL REPORTING ACCOUNTANT Barb Harding MD LAB BLOOD ORDERABLES Final Result Performing Organization Address City/[facility] Co de Phone Number CRYS [address] [place] [address] * Lactate dehydrogenase (LD) (11/01/2024 11:58 AM SENIOR FINANCIAL REPORTING ACCOUNTANT) Lactate dehydrogenase (LDH) 191 100 - 250 Units/L Comment:Testing performed by : [address] [address] Blood 11/01/2024 11:5 8 AM SENIOR FINANCIAL REPORTING ACCOUNTANT 11/01/2024 12:05 PM SENIOR FINANCIAL REPORTING ACCOUNTANT Barb Harding MD LAB BLOOD ORDERABLES Final Result Performing Organization Address City/[facility] Co de Phone Number CRYS [address] [place] [address] * (ABNORMAL) IgG (11/01/2024 11:58 AM SENIOR FINANCIAL REPORTING ACCOUNTANT) Pathologist [facility] Immunoglobulin G 511(L) 700 - 1,600 mg/dL Blood 11/01/2024 11:5 8 AM SENIOR FINANCIAL REPORTING ACCOUNTANT 11/01/2024 7:08 PM SENIOR FINANCIAL REPORTING ACCOUNTANT Barb Harding MD LAB BLOOD ORDERABLES Final Result [facility] [address] [facility] Department [place] [address] * Comprehensive metabolic panel (11/01/2024 11:58 AM SENIOR FINANCIAL REPORTING ACCOUNTANT) [facility] Sodium 141 135 - 145 mmol/L Comment:Testing performed by : [address] [address] Potassium, pl 3.8 3.3 - 4.9 mmol/L CRYS Comment:Testing performed by : [address] [address] Chloride 105 97 - 110 mmol/L CRYS Comment:Testing performed by : [address] [address] CO2 25 22 - 32 mmol/L CRYS Comment:Testing performed by : [address] [address] Anion gap 11 2 - 15 mmol/L CRYS Comment:Testing performed by : [address] [address] BUN 14 6 - 25 mg/dL CR[facility] Comment:Testing performed by : [address] [address] Creatinine 0.60 0.60 - 1.10 mg/dL CR[facility] Comment:Testing performed by : [address] [address] Glucose 125 70 - 199 mg/dL CRYS [...] was last revised 2022. Testing performed by: [address] [address] Calcium 9.6 8.5 - 10.3 mg/dL CR[facility] Comment:Testing performed by : [address] [address] Bilirubin, total 0.2 0.1 - 1.2 mg/dL [facility] Comment:Testing performed by : [address] [address] Protein, pl 6.6 6.5 - 8.5 g/dL CR[facility] Comment:Testing performed by : [address] [address] Albumin 4.5 3.5 - 5.0 g/dL [facility] Comment:Testing performed by : [address] [address] Alk phos 58 40 - 130 Units/L CR[facility] Comment:Testing performed by : [address] [address] ALT 18 7 - 45 Units/L CRYS Comment:Testing performed by : [address] [address] AST 18 10 - 45 Units/L [facility] Comment:Testing performed by : [address] [address] Blood 11/01/2024 11:5 8 AM SENIOR FINANCIAL REPORTING ACCOUNTANT 11/01/2024 12:05 PM SENIOR FINANCIAL REPORTING ACCOUNTANT us Barb Harding MD LAB BLOOD ORDERABLES Final Result [facility] [address] [facility] Department [place] [address] * Colonoscopy (08/07/2023 1:35 PM SENIOR FINANCIAL REPORTING ACCOUNTANT) Anatomical Region Laterality Modality Other us Historical Provider ENDOSCOPY PROCEDURES Kayy l Result from Last 3 Months or Most Recently Relevant to Health Maintenance Insurance BLUE ACCESS OOS ANTH PREFERRED [facility] CHOICE PLUS trippiece OOS Advance Directives For more information, please contact: [phone] * Full Code (Latest Code Status on File) Date Activated Date Inactivated Comments 02/18/2024 11:16 AM 02/19/2024 4:39 AM Care Teams Veneer Matcher Relationship Specialty Start Date End Date Malissa Soriano MD [facility] [address] [place] [address] PCP - General Family Practice 12/13/24 Barb Harding MD [address] DIV IM BONE MARROW TRANSPLANT, [address] [place] [address] Medical Oncologist/Editing Internship Hematology 01/05/24 Tommy Cerda MD [address] [place] [address] Referring Physician Gastroenterology 01/09/24
--- OUTSIDE RECORDS SUMMARY | 2025-01-29 15:59 | XMS_ITS | Clinical Summary ---
Author Organization [facility] [employer] Address [address] [place] [address] Care Team Providers Care Business Controller Name Role Phone Christoph Driscoll MD Primary Care Provider [phone] Jonny Watters MD Unavailable [phone] Source Comments [facility],non-owned Affiliates and Associated Physician Practices is amultiple site organization consisting of ambulatory clinics and hospital sitesin [place], [place], [place] and [place]. This disclosure is being madepursuant to the Care Everywhere program and may not contain all information available regarding this patient. Last updated 18.[facility] Allergies Active Allergy Reactions Criticality Noted Date Comments Levofloxacin 01/01/2012 Medications * Be aware that medications may not be up to date on this document. Alwaysverify current medications with the patient. Fenofibrate (TRICOR PO) Active LOVASTATIN PO Active Cholestyramine (QUESTRAN PO) Active diazepam (VALIUM) 2 MG tablet Take 1 Tab by mouth 3 times daily as needed for Anxiety. 90 Tab 3 01/01/2012 Active diclofenac sodium (VOLTAREN) 75 MG tablet TBEC Take 1 Tab by mouth 2 times daily. 60 Tab 4 01/26/2013 Active Active Problems Problem Noted Date Diagnosed Date Degeneration of cervical intervertebral disc 12/2011 Cervical spondylosis without myelopathy 01/01/20 12 Social History Tobacco Use Types Packs/Day Years Used Date Smoking Tobacco: Never Smokeless Tobacco: Never Alcohol Use Standard Drinks/Week Comments No 0 (1 standard drink = 0.6 oz pur e alcohol) Comments Unknown Sex and Gender Information Value Date Recorded Sex Assigned at Not on file Legal Sex Female 1:15 PM ANIMAL HUSBANDRY WORKER Gender Identity Not on file Sexual Orientation Not on file Last Filed Vital Signs Vital Sign Reading Time Taken Comments Blood Pressure - - Pulse - - Temperature - - Respiratory Rate - - Oxygen Saturation - - Inhaled Oxygen Concentration - - Weight 74.8 kg (165 lb) 01/01/2012 1:16 PM CDT Height 162.6 cm (5' 4 ) 01/01/2012 1:16 PM CDT Body Mass Index 28.32 01/01/2012 1:16 PM CDT Plan of Treatment Health Maintenance Due Date Last Done Comments BONE DENSITY TESTING 1959 COLOGUARD (AGES 45-75) - COL ON CA SCREENING 1959 COLON MONITORING 1959 COLONOSCOPY - COLON CA SCREENING 1959 CT COLONOGRAPHY - COLON CA SCREENING 1959 Colorectal Cancer Screening 1959 FIT - COLON CA SCREENING 1959 FLEX SIG - COLON CA SCREENING 1959 MAMMOGRAM 1959 PAP SMEAR 1959 HIV SCREENING 1974 HEPATITIS C SCREENING 04/04/1977 DTAP/TDAP/TD VACCINES (1 - Tdap) 1978 PNEUMOCOCCAL VACCINE 50+ (1 of 1 - PCV) 2009 ZOSTER VACCINE (1 of 2) 2009 COVID-19 VACCINE ( - 2023-2 5 season) 2024 DEPRESSION SCREENING 09/29/2024 INFLUENZA VACCINE (Season Ended) 2025 Respiratory Syncytial Virus (RSV) Vaccine Pt: or over 60 yrs (1 - 1-dose 75+ series) 2034 HEPATITIS B VACCINE Aged Out No longe r eligible based on patient's age to complete this topic HIB VACCINE Aged Out No longer eligi ble based on patient's age to complete this topic HPV VACCINE Aged Out No longer eligi ble based on patient's age to complete this topic MENINGOCOCCAL (Group B) VACC INE SHARED DECISION-MAKING Aged Out No longer eligibl e based on patient's age to complete this topic MENINGOCOCCAL GROUPS A/C/Y/W VACCINE Aged Out No longer eligible b ased on patient's age to complete this topic Insurance BCBS/BLUE [place]UE [place] [facility] BCBS/[place] Care Teams Business Controller Relationship Specialty Start Date End Date Christoph Driscoll MD [address] [place] [address] PCP - General Internal Medicine 01/01/12 Jonny Watters MD [address] [place] [address] Neurological Surgery 01/01/12
--- OUTSIDE RECORDS SUMMARY | 2025-01-29 15:59 | XMS_ITS ---
Author Organization [facility] Address [address] [place] [address] Care Team Providers Care Pin Ball Machine Mechanic Name Role Phone Barb Harding MD Unavailable [phone] Tommy Cerda MD Unavailable [phone] Malissa Soriano MD Primary Care Provider Active Problems Problem Noted Date Diagnosed Date Lower extremity edema 05/24/2024 Palpitations 05/24/2024 Hyperlipidemia 05/24/2024 Chronic lymphocytic leukemia (CLL), B-cell 03/25 Current Treatment and Therapy Plans IV Maintenance Therapy Plan* Plan Start Date:12/13/2024 Plan Provider:Barb Harding MD Linked Problems Chronic lymphocytic leukemia of B-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 (HCC) Treatment Medications No medications scheduled. Venetoclax / RiTUXimab 28 Days Cycle - Lymphoma Cycle 1-3 given at outside facility* Plan Start Date:05/19/2024 Plan Provider:Barb Harding MD Linked Problems Chronic lymphocytic leukemia of B-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 (HCC) Treatment Medications Current Day (Day 1 , Cycle 6 - Planned for 01/10/2025) Next Day (Day 1, Cycle 7 - Planned for 02/07/2025) riTUXimab (RITUXAN) IVPB in 500 mLriTUXimab-abbs (TRUXIMA)venetoclax (VENCLEXTA)venetoclax (VENCLEXTA) 10 mg-50 mg- 100 mg riTUXimab (RITUXAN) 860 mg in sodium chloride 0.9% 500 mL IVPBvenetoclax (VENCLEXTA) 100 mg tablet venetoclax (VENCLEXTA) 100 mg tablet Past Treatment and Therapy Plans Line Care Plan Name Start Date Discontinue Date Treatment Medications Discontinue Reason Plan Provider IV MAINTENANCE THERAPY PLAN 04/14/2019 12/09/2023 No medications scheduled. Automatic discontinuation of dormant plans Danny Kaye Jr., MD Oncology Chemotherapy Treatment Plan Name Start Date Discontinue Date Treatment Medications Discontinue Reason Plan Provider Cycles Ibrutinib PO Daily - CLL 07/28/20 19 09/03/2022 ibrutinib (IMBRUVICA) Stable Disease Danny Kaye Jr., MD Treatment not started Rituximab Maintenance Every 12 Weeks - Lymphoma 8 07/07/2019 riTUXimab (RITUXAN)riTUX imab (RITUXAN) IVPB in 500 mL Progressive Disease Danny Kaye Jr., MD 5 of 8 cycles started Specialty Infusion Treatment Plan Name Start Date Discontinue Date Treatment Medications Discontinue Reason Plan Provider IV MAINTENANCE THERAPY PLAN 04/15/2018 01/07/2019 No medications scheduled. Protocol Amendment/Danny Molina Jr., MD Lifetime Dose Tracking * Chemical Lifetime Dose Automatic Entry Manual Entr y DLP 436 mGycm 436 mGycm 0 mGycm
--- OUTSIDE RECORDS SUMMARY | 2025-01-29 15:59 | XMS_ITS | Clinical Summary ---
Author Organization [employer] [address] [place] [address] Address [address] [place] [address] Care Team Providers Care Senior Test Analyst Name Role Phone Christoph Driscoll MD Primary Care Provider [phone] Social History Tobacco Use Types Packs/Day Years Used Date Smoking Tobacco: Never Assessed Comments Unknown Sex and Gender Information Value Date Recorded Sex Assigned at Not on file Legal Sex Female 10:47 AM DIRECTOR PART Gender Identity Not on file Sexual Orientation Not on file Plan of Treatment Health Maintenance Due Date Last Done Comments DTAP/TDAP/TD VACCINES (1 - Tdap) 1978 BREAST CANCER SCREENING 1999 COLORECTAL SCREENING 2004 Colorectal Cancer Screening 2004 FIT-DNA Q 3 years 2004 FIT/FOBT Q 1 year 2004 Flex Sig/CT Colonography Q 5 years 2004 PNEUMOCOCCAL VACCINE 50+ YEARS (1 of 1 - PCV) 04/09/20 09 ZOSTER VACCINE (1 of 2) 2009 OSTEOPOROSIS SCREENING 2024 INFLUENZA VACCINE (#1) 2024 RSV VACCINE (60+ or ) (1 - 1-dose 75+ series) 2034 Care Teams Senior Test Analyst Relationship Specialty Start Date End Date Christoph Driscoll MD [address] [place] [phone] PCP - General Internal Medicine 12/08/19
--- OUTSIDE RECORDS SUMMARY | 2025-01-29 16:00 | XMS_ITS | Continuity of Care Document ---
Author Organization [facility] Address [address] [place] [address] Phone Care Team Providers Care Drop Hammer Setter Up Name Role Phone Katie Regalado Unavailable Unavailable Advance Directives Directive Yes / No Effective Date File Name No Information Encounters Encounter Description Practice Location Reason(s) For Visit Diagnoses Date Provider Providers Copied on Encounter [facility], [address], [place], [place], [id number], [place] tel:[phone] [facility] No Information 1-200 0 Sabine Wilson. [address] , [address], [place], [address], [place]. tel:[phone] Family History Family Member Type Diagnosis Age At Onset No Information Payers Payer name Insurance type Covered alliance party ID Authoriza tion(s) [employer] SOI CI [id number] Social History Type Description Quantity Date Captured [...]
== END 2025-01-29 09:00 | disposition home or self-care (01) ==
PROVIDERS: Emergency Provider Nurse Practitioner Family
DX: J01.00 Acute maxillary sinusitis, unspecified (principal); C95.90 Leukemia, unspecified not having achieved remission; M41.9 Scoliosis, unspecified
CPT/HCPCS: 99213; G0463

== ENCOUNTER 2025-03-26 17:55 | Emergency (ER) | payer BC, SELFPAY ==
--- NOTE | 2025-03-26 17:59 | ED.FEMALEGU ---
HPI - Female Genitourinary General Chief complaint: Urogenital-Female Stated complaint: UTI Time Seen by Provider: 03/26/25 17:55 Source: patient Mode of arrival: ambulatory Limitations: no limitations History of Present Illness HPI Narrative: Patient is a 64-year-old female who presents to the clinic with complaints of dysuria, urgency and frequency x 1 day. She noticed hematuria this afternoon. She has not been taking anything [id number]. She denies any history of kidney stones, fevers, body aches, chills, nausea, vomiting, itching/burning to vagina, or concern for STIs. Related Data Home Medications ?Medication ?Instructions ?Recorded ?Confirmed ?Last Taken ?Type loratadine 10 mg tablet (Claritin) 10 mg PO DAILY 09/11/21 01/29/25 06/23/23 History cholecalciferol (vitamin D3) 50 50 mcg PO DAILY 03/28/23 01/29/25 06/23/23 History mcg (2,000 unit) capsule multivitamin 1 tablet PO DAILY 03/28/23 01/29/25 06/23/23 History allopurinol 300 mg tablet 300 mg PO DAILY 08/03/24 01/29/25 Unknown History venetoclax 100 mg tablet 100 mg PO Q24H 08/03/24 01/29/25 Unknown History (Venclexta) Allergies Allergy/AdvReac Type Severity Reaction Status Date / Time levofloxacin (From Levaquin) Allergy Rash Verified 03/26/25 17:56 Sulfa (Sulfonamide AdvReac Intermediate Diarrhea Verified 03/26/25 17:56 Antibiotics) sulfamethizole AdvReac Intermediate Nausea and Verified 03/26/25 17:56 Vomiting Quinolones AdvReac Mild Itching Verified 03/26/25 17:56 Review of Systems Review of Systems: CONSTITUTIONAL: Denies body aches, fever, chills, or sweats. CARDIOVASCULAR: Denies chest pain, palpitations, or edema. RESPIRATORY: Denies cough or dyspnea. GASTROINTESTINAL: Denies abdominal pain, nausea, vomiting, or diarrhea. GENITOURINARY: Reports dysuria, frequency, urgency, hematuria. Denies flank pain or discharge. SKIN: Denies rash, itching, or wounds. MUSCULOSKELETAL: Denies back pain or myalgia. All systems reviewed & are unremarkable except as noted in HPI and below PMFSH Past Medical History Medical History Injury of left foot midfoot sprain August 2023 Esophageal web Elevated fecal calprotectin Nausea and vomiting Scoliosis (and kyphoscoliosis), idiopathic Surgical History Surgical History History of History of lumbar surgery History of cholecystectomy H/O ovarian cystectomy Family History Family History Sibling Family history of elevated blood lipids Mother Cerebrovascular accident Patient's mother is Father Family history of malignant neoplasm Carcinoma of colon Social History Social History Smoking status: Never smoker Alcohol intake: current Drinks per week: 1 Alcohol use details: 1-2 drinks monthly Substance use: never Substance use type: does not use Do You Feel Safe in your Home?: Yes Lack of Transportation: No Lack of Food: Never True Current Housing: I Have Housing Concerned About Future Housing: No Difficulty Paying Gas/Electric Bills: No Difficulty Paying for Meds: No Currently Unemployed: No Education: Associate Degree Difficulty w/ Childcare or Family Care: No Living arrangements: with family Occupation/Education: occupation 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 Please see nursing chart for further information. There is no relevant family history pertinent to the presenting complaint. Exam Narrative: GENERAL: Well-appearing and in no acute distress. ENT: Mucous membranes pink and moist. NECK: Normal AROM. ?Supple. ? CHEST: ?No respiratory distress. Clear to auscultation. HEART: Regular rate and rhythm. ABDOMEN: Soft, nontender, nondistended, normal active bowel sounds. ?No CVA tenderness. : Patient deferred exam. SKIN: Warm, dry, no rash. NEURO: No focal deficits. Alert and oriented x3. Gait steady. PSYCH: ?Normal affect. ? Course Course Level of Care: Express Care Visit Vital Signs Vital signs: Reviewed. MDM - Female Genitourinary MDM Narrative Medical decision making narrative: Discussed physical exam findings. UA positive. Culture pending. Keflex and Pyridium prescriptions given. Advised supportive measures and signs/symptoms to go to the ER. Pt is appropriate for outpatient treatment and follow up. Differential Diagnosis Differential diagnosis: Likely urinary tract infection, bacterial vaginosis and other (nephrolithiasis, yeast infection, STI.) Critical Care Time Critical Care Time Critical Care Time: No Discharge Plan Discharge Clinical Impression: Acute UTI Patient Disposition: Home Condition: Stable Instructions: Urinary Tract Infection in Women (DC) Additional Instructions: Take the antibiotic as prescribed. Use Pyridium as prescribed. The urine will be sent of for a culture to identify what type of bacteria is causing your infection. If the culture shows that the antibiotic will not get rid of your infection, you will be notified and a new antibiotic will be called in for you. Increase water intake. you will need to follow up with your PCP, call to schedule an appointment. Go to the ER for any worsening symptoms or concerns Patient Language: Bangladeshi Prescriptions: New cephalexin 500 mg capsule 500 mg PO Q12H 7 Days Qty: 14 0RF phenazopyridine [Pyridium] 200 mg tablet 200 mg PO TID PRN (Reason: pain) 3 Days Qty: 9 0RF No Action fluticasone propionate [Flonase Allergy Relief] 50 mcg/actuation spray,suspension 1 spray intranasal DAILY Qty: 16 0RF Rx Instructions: administer into each nostril amoxicillin-pot clavulanate 875-125 mg tablet 1 tablet PO Q12H 10 Days Qty: 20 0RF cholecalciferol (vitamin D3) 50 mcg (2,000 unit) capsule 50 mcg PO DAILY multivitamin Tablet 1 tablet PO DAILY Venclexta 100 mg tablet 100 mg PO Q24H allopurinol 300 mg tablet 300 mg PO DAILY colestipol 1 gram tablet 1 g PO BID 90 Days Qty: 180 3RF loratadine [Claritin] 10 mg Tablet 10 mg PO DAILY azelastine 137 mcg (0.1 %) spray,non-aerosol 2 spray NASAL Q12H PRN (Reason: Nasal Congestion) Qty: 30 1RF Rx Instructions: administer into each nostril omeprazole 20 mg capsule,delayed release(DR/EC) 20 mg PO DAILY Qty: 90 1RF lovastatin 40 mg tablet See Rx Instructions .ROUTE .COMPLEX Qty: 90 0RF Dose Instruction: TAKE 1 TABLET BY MOUTH EVERY DAY Rx Instructions: TAKE 1 TABLET BY MOUTH EVERY DAY fenofibrate nanocrystallized [Tricor] 145 mg tablet 145 mg PO DAILY Qty: 90 1RF Follow-up/Referrals: Dru Soriano MD [Primary Care Provider] - Time of Disposition: 18:21
[2025-03-26 18:03] VITALS: BP 114/89; PULSE 91; RESP 18; TEMP 36.4; O2SAT 98
[2025-03-26 18:10] LABS: EDUAAPPEAR Clear; EDUABILI 1+ (Negative); EDUABLOOD 2+ (Negative); EDUACOLOR1 Dark; EDUAGLUCOSE Negative (Negative); EDUAKETONE Trace (Negative); EDUALEUKO 2+ (Negative); EDUANITRATE Negative (Negative); EDUAPROTEIN 3+ (Negative); EDUAUROBILI 0.2
== END 2025-03-26 18:23 | disposition home or self-care (01) ==
PROVIDERS: PCP Family Medicine
DX: N39.0 Urinary tract infection, site not specified (principal)
CPT/HCPCS: 81003; 87086; 99213; G0463

== ENCOUNTER 2025-05-02 12:03 | Outpatient (CLI) | payer BC, SELFPAY ==
--- NOTE | ~2025-05-02 | MM_ITS ---
EXAMINATION: MM screening lidia BI w scarlet HISTORY: Screening TECHNIQUE: Craniocaudal and mediolateral oblique 3-D tomosynthesis images were obtained and synthetic 2-D images were generated. CAD analysis was submitted and interpreted. COMPARISON: Comparison to multiple prior studies sequentially, with oldest reviewed study dated 06/30. BREAST PARENCHYMAL COMPOSITION: There are scattered areas of fibroglandular density. FINDINGS: There is no evidence of suspicious mass, calcification, or architectural distortion to sug gest malignancy in either breast. IMPRESSION: 1. No mammographic evidence of malignancy. 2. Recommend routine screening mammography in one year. BI-RADS Category 1: Negative Reviewed, dictated and finalized at location B.
--- OUTSIDE RECORDS SUMMARY | 2025-05-02 12:08 | XMS_ITS | Clinical Summary ---
Author Organization [facility] Address [address] [place] [address] Care Team Providers Care Molding Press Operator Name Role Phone Barb Harding MD Unavailable [phone] Tommy Cerda MD Unavailable [phone] Malissa Soriano MD Primary Care Provider Allergies [...] split. 120 tablet 5 09/09/20 24 Active amoxicillin-clavulan ate XR (AUGMENTIN XR) 1,000-62.5 mg per 12 hr tablet Take by mouth 2 (two) times a day Active Active Problems Problem Noted Date Diagnosed Date Lower extremity edema 05/24/2024 Palpitations 05/24/2024 Hyperlipidemia 05/24/2024 Chronic lymphocytic leukemia (CLL), B-cell 03/25 Encounters Date Type Department Care Team Description 04/18/2025 4:00 PM CDT Lab [address] [address] Chronic lymphocytic leukemia of B-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 (HCC) 02/07/2025 9:20 AM CDT Office Visit [facility] Bone Marrow Transplant [address] [place] [phone] Barb Harding MD Chronic lymphocytic leukemia of B-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 (HCC) (Primary Dx) 02/07/2025 9:00 AM CDT Lab [address] [address] Chronic lymphocytic leukemia of B-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 (HCC) 02/07/2025 Orders Only [facility] Oncology [facility] [address] [place] [address] Barb Harding MD 02/07/2025 Orders Only [facility] Oncology [address] [place] [phone] Bertha Ramirez, bus transportation manager lymphocytic leukemia of B-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 (HCC) (Primary Dx) from Last 3 Months Immunizations Immunization Administration [...] e alcohol) social AUDIT-C Answer Date Recorded Frequency of Alcohol Consumption Not on file 12/13/2024 Q2: How many drinks containi ng [...] on file Legal Sex Female 8:39 AM ELEVATED WORK PLATFORM OPERATOR Gender Identity Not on file Sexual Orientation Not on file Obstetrics History Last Filed Vital Signs Vital Sign Reading Time Taken Comments Blood Pressure 143/77 02/07/2025 9:24 AM CDT Pulse 73 02/07/2025 9:24 AM CDT Temperature 36.8 C (98.3 F) 02/07/2025 9:24 AM CDT Respiratory Rate 18 02/07/2025 9:24 AM CDT Oxygen Saturation 99% 02/07/2025 9:24 AM CDT Inhaled Oxygen Concentration - - Weight 68.9 kg (152 lb) 02/07/2025 9:24 AM CDT Height 156.2 cm (5' 1.5) 11/01/2024 12:06 PM CS T no shoes Body Mass Index 28.26 11/01/2024 12:06 PM ELEVATED WORK PLATFORM OPERATOR Plan of Treatment Health Maintenance Due Date Last Done Comments Depression Screening 1960 Hepatitis C Screening 1960 Osteoporosis Screening-Bone Density Scan 1959 DTaP/Tdap/Td Vaccine (1 - Tdap) 1970 Pneumococcal vaccine 65+ (1 of 2 - PCV) 1978 Zoster Vaccine (1 of 2) 1978 Well Visit 65+ 2024 Covid-19 Vaccine (4 - 2023-2 5 season) 2024 06/19/2021, 12/23/2020, 11/30/2020 Fall Risk Assessment 02/17/2025 02/18/2024 Breast Cancer Screening-Mammogram 05/01/2025 05/01/2024, 01/29/2023, 01/28/2023, Additional history exists Influenza Vaccine (#1) 2025 , 07/11/2021, 07/12/2020, Additional history exists Colon Cancer Screening-Colonoscopy 08/07/2033 08/07/2023, 08/07/2023 Colon Cancer Screening-CT Colonography Discontinued 08/07/2023, 08/07/2023 Colon Cancer Screening-DNA Stool Discontinued 08/07/20 23, 08/07/2023 Colon Cancer Screening-FIT Discontinued 08/07/2023, Colon Cancer Screening-Sigmoidoscopy Discontinued 08/07/2023, 08/07/2023 Hepatitis B Screening Completed 07/23/2024 Procedures Procedure Name Priority Date/Time Associated Diagnosis Comments EGFR Routine 04/18/2025 4:08 PM CDT Chronic lymphocytic leukemia of B-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 (HCC) DIFFERENTIAL AUTO Routine 04/18/2025 4:0 8 PM CDT Chronic lymphocytic leukemia of B-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 (HCC) CBC WITH AUTO DIFFERENTIAL Routine 04/18/2025 4:08 PM CDT Chronic lymphocytic leukemia of B-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 (HCC) COMPREHENSIVE METABOLIC PANEL Routine 04/18/2025 4:08 PM CDT Chronic lymphocytic leukemia of B-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 (HCC) LACTATE DEHYDROGENASE Routine 04/18/2025 4:08 PM CDT Chronic lymphocytic leukemia of B-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 (HCC) EGFR STAT 02/07/2025 9:19 AM CDT Chronic lymphocytic leukemia of B-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 (HCC) DIFFERENTIAL AUTO STAT 02/07/2025 9:1 9 AM CDT Chronic lymphocytic leukemia of B-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 (HCC) IGG Routine 02/07/2025 9:19 AM CDT Chronic lymphocytic leukemia of B-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 (HCC) IMMUNE COMPETENCE Routine 02/07/2025 9:1 9 AM CDT Chronic lymphocytic leukemia of B-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 (HCC) CBC WITH AUTO DIFFERENTIAL STAT 02/07/2025 9:19 AM CDT Chronic lymphocytic leukemia of B-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 (HCC) COMPREHENSIVE METABOLIC PANEL STAT 02/07/2025 9:19 AM CDT Chronic lymphocytic leukemia of B-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 (HCC) LACTATE DEHYDROGENASE Routine 02/07/2025 9:19 AM CDT Chronic lymphocytic leukemia of B-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 (HCC) COLONOSCOPY Routine 08/07/2023 1:35 PM ELEVATED WORK PLATFORM OPERATOR from Last 3 Months or Most Recently Relevant to Health Maintenance Results * eGFR (04/18/2025 4:08 PM CDT) [facility] Signature eGFR 81 >=60 mL/min/1. 73 m2 Comment: Interpretive Data [...] was last reviewed 2021. Testing performed by: [address] [address] Blood 04/18/2025 4:08 PM CDT 04/18/2025 4:11 PM CDT us Barb Harding MD LAB BLOOD ORDERABLES Final Result [facility] [address] [facility] Department of Laboratories [place], [place] [id number] * (ABNORMAL) Differential, auto (04/18/2025 4:08 PM CDT) Pathologist [facility] Neutrophil abs 4.13 1.50 - 6.50 K/cumm Comment:Testing performed by : [address] [address] Imm gran abs 0.11(H) 0.00 - 0.10 K/cumm [facility] ANTONIO Comment:Testing performed by : [address] [address] Lymphocyte abs 1.53 0.80 - 3.30 K/cumm CRYS Comment:Testing performed by : [address] [address] Monocyte abs 0.80 0.20 - 0.80 K/cumm [facility] Comment:Testing performed by : [address] [address] Eosinophil abs 0.00 0.00 - 0.50 K/cumm [facility] Comment:Testing performed by : [address] [address] Basophil abs 0.02 0.00 - 0.10 K/cumm [facility] Comment:Testing performed by : [address] [address] Neutrophil pct 62.7 % [facility] Comment: Interpretive Data Percent cell count reference ranges are not reported, since discordance with absolute values may lead to misinterpretation of CBC data. Current Interpretive Data was last revised on 2018. Testing performed by: [address] [address] Imm gran pct 1.7 % [facility] Comment: Interpretive Data Percent cell count reference ranges are not reported, since discordance with absolute values may lead to misinterpretation of CBC data. Current Interpretive Data was last revised on 2018. Testing performed by: [address] [address] Lymphocyte pct 23.2 % [facility] Comment: Interpretive Data Percent cell count reference ranges are not reported, since discordance with absolute values may lead to misinterpretation of CBC data. Current Interpretive Data was last revised on 2018. Testing performed by: [address] [address] Monocyte pct 12.1 % [facility] Comment: Interpretive Data Percent cell count reference ranges are not reported, since discordance with absolute values may lead to misinterpretation of CBC data. Current Interpretive Data was last revised on 2018. Testing performed by: [address] [address] Eosinophil pct 0.0 % [facility] Comment: Interpretive Data Percent cell count reference ranges are not reported, since discordance with absolute values may lead to misinterpretation of CBC data. Current Interpretive Data was last revised on 2018. Testing performed by: [address] [address] Basophil pct 0.3 % [facility] Comment: Interpretive Data Percent cell count reference ranges are not reported, since discordance with absolute values may lead to misinterpretation of CBC data. Current Interpretive Data was last revised on 2018. Testing performed by: [address] [address] Blood 04/18/2025 4:08 PM CDT 04/18/2025 4:11 PM CDT us Barb Harding MD LAB BLOOD ORDERABLES Final Result [facility] [address] [facility] Department [place] [address] * CBC with auto differential (04/18/2025 4:08 PM CDT) WBC 6.59 3.80 - 9.90 K/cumm Comment:Testing performed by : [address] [address] Hgb 11.9 11.9 - 15.5 g/dL [facility] Comment:Testing performed by : [address] [address] Hct 35.7 35.6 - 45.5 % [facility] Comment:Testing performed by : [address] [address] Plt 236 150 - 400 K/cumm [facility] Comment:Testing performed by : [address] [address] MPV 9.6 9.1 - 12.3 fL [facility] Comment:Testing performed by : [address] [address] RBC 4.08 3.90 - 5.20 M/cumm [facility] Comment:Testing performed by : [address] [address] MCV 87.5 81.3 - 96.4 fL [facility] Comment:Testing performed by : [address] [address] MCH 29.2 27.1 - 33.3 pg [facility] Comment:Testing performed by : [address] [address] MCHC 33.3 32.3 - 35.7 g/dL [facility] AN[facility]IO Comment:Testing performed by : [address] [address] RDW CV 13.5 11.1 - 14.9 % [facility] Comment:Testing performed by : [address] [address] RDW SD 43.4 35.7 - 48.1 fL [facility] Comment:Testing performed by : [address] [address] NRBC abs 0.00 0.00 - 0.01 K/cumm [facility] Comment:Testing performed by : [address] [address] ANC Prelim 4.13 1.50 - 6.50 K/cumm [facility] Comment: Interpretive Data The rapid ANC is a preliminary automated count and may vary from the final ANC (Neut Abs) reported in the WBC differential that follows. Current interpretive data was last revised 2024. Testing performed by: [address] [address] Blood 04/18/2025 4:08 PM CDT 04/18/2025 4:11 PM CDT us Barb Harding MD LAB BLOOD ORDERABLES Final Result [facility] [address] [facility] Department [place] [address] * Lactate dehydrogenase (LD) (04/18/2025 4:08 PM CDT) Lactate dehydrogenase (LDH) 222 100 - 250 Units/L Comment:Testing performed by : [address] [address] Blood 04/18/2025 4:08 PM CDT 04/18/2025 4:11 PM CDT us Barb Harding MD LAB BLOOD ORDERABLES Final Result [facility] [address] [facility] Department [place] [address] * Comprehensive metabolic panel (04/18/2025 4:08 PM CDT) Sodium 143 135 - 145 mmol/L Comment:Testing performed by : [address] [address] Potassium, pl 3.7 3.3 - 4.9 mmol/L [facility] Comment:Testing performed by : [address] [address] Chloride 107 97 - 110 mmol/L [facility] Comment:Testing performed by : [address] [address] CO2 24 22 - 32 mmol/L [facility] Comment:Testing performed by : [address] [address] Anion gap 12 2 - 15 mmol/L [facility] Comment:Testing performed by : [address] [address] BUN 18 6 - 25 mg/dL [facility] Comment:Testing performed by : [address] [address] Creatinine 0.80 0.60 - 1.10 mg/dL [facility] Comment:Testing performed by : [address] [address] Glucose 90 70 - 199 mg/dL [facility] Comment: Interpretive [...] was last revised 2022. Testing performed by: [address] [address] Calcium 9.6 8.5 - 10.3 mg/dL [facility] Comment:Testing performed by : [address] [address] Bilirubin, total 0.2 0.1 - 1.2 mg/dL [facility] Comment:Testing performed by : [address] [address] Protein, pl 6.5 6.5 - 8.5 g/dL [facility] Comment:Testing performed by : [address] [address] Albumin 4.5 3.5 - 5.0 g/dL [facility] Comment:Testing performed by : [address] [address] Alk phos 58 40 - 130 Units/L [facility] Comment:Testing performed by : [address] [address] ALT 17 7 - 45 Units/L [facility] Comment:Testing performed by : [address] [address] AST 18 10 - 45 Units/L [facility] Comment:Testing performed by : [address] [address] Blood 04/18/2025 4:08 PM CDT 04/18/2025 4:11 PM CDT Barb Harding MD LAB BLOOD ORDERABLES Final Result Performing Organization Address City/State/[facility] [[email or web address]] Co de Phone Number [facility] [address] [facility] Department [place] [address] * eGFR (02/07/2025 9:19 AM CDT) eGFR >90 >=60 mL/min/1. 73 m2 [...] was last reviewed 2021. Testing performed by: [address] [address] Blood 02/07/2025 9:19 AM CDT 02/07/2025 9:21 AM CDT Doreen Petersen NP LAB BLOOD ORDERABLES F inal Result [facility] [facility] Department [place] [address] * Differential, auto (02/07/2025 9:19 AM CDT) Neutrophil abs 4.23 1.50 - 6.50 K/cumm Comment:Testing performed by : [address] [address] Imm gran abs 0.08 0.00 - 0.10 K/cumm [facility] Comment:Testing performed by : [address] [address] Lymphocyte abs 1.52 0.80 - 3.30 K/cumm [facility] Comment:Testing performed by : [address] [address] Monocyte abs 0.63 0.20 - 0.80 K/cumm [facility] Comment:Testing performed by : [address] [address] Eosinophil abs 0.00 0.00 - 0.50 K/cumm [facility] Comment:Testing performed by : [address] [address] Basophil abs 0.01 0.00 - 0.10 K/cumm [facility] Comment:Testing performed by : [address] [address] Neutrophil pct 65.4 % [facility] Comment: Interpretive Data Percent cell count reference ranges are not reported, since discordance with absolute values may lead to misinterpretation of CBC data. Current Interpretive Data was last revised on 2018. Testing performed by: [address] [address] Imm gran pct 1.2 % [facility] Comment: Interpretive Data Percent cell count reference ranges are not reported, since discordance with absolute values may lead to misinterpretation of CBC data. Current Interpretive Data was last revised on 2018. Testing performed by: [address] [address] Lymphocyte pct 23.5 % [facility] Comment: Interpretive Data Percent cell count reference ranges are not reported, since discordance with absolute values may lead to misinterpretation of CBC data. Current Interpretive Data was last revised on 2018. Testing performed by: [address] [address] Monocyte pct 9.7 % [facility] Comment: Interpretive Data Percent cell count reference ranges are not reported, since discordance with absolute values may lead to misinterpretation of CBC data. Current Interpretive Data was last revised on 2018. Testing performed by: [address] [address] Eosinophil pct 0.0 % [facility] Comment: Interpretive Data Percent cell count reference ranges are not reported, since discordance with absolute values may lead to misinterpretation of CBC data. Current Interpretive Data was last revised on 2018. Testing performed by: [address] [address] Basophil pct 0.2 % [facility] Comment: Interpretive Data Percent cell count reference ranges are not reported, since discordance with absolute values may lead to misinterpretation of CBC data. Current Interpretive Data was last revised on 2018. Testing performed by: [address] [address] Blood 02/07/2025 9:19 AM CDT 02/07/2025 9:21 AM CDT Doreen Petersen DIRECTOR OF COMMUNITY SERVICES LAB BLOOD ORDERABLES F inal Result [facility] [address] [facility] Department [place] [address] * (ABNORMAL) Immune competence (02/07/2025 9:19 AM CDT) CD3 pct 95(H) 60 - 88 % Comment:Testing performed by : [facility], 1 [facility], [address] CD3 Absolute 1,528 661 - 1,963 cells/mcL [facility] Comment:Testing performed by : [facility], [address] [place] [address], [address] CD4 pct 56 31 - 64 % [facility] Comment:Testing performed by : [facility], 1 [facility], [address] CD4 Absolute 941 365 - 1,294 cells/mcL [facility] Comment:Testing performed by : [facility], 1 [facility], [address] CD8 pct 37 12 - 40 % [facility] Comment:Testing performed by : [facility], [address] [place] [address], [address] CD8 Absolute 611 187 - 781 cells/mcL [facility] Comment:Testing performed by : [facility], [address] [place] [address], [address] CD19 pct 0(L) 6 - 25 % [facility] Comment:Testing performed by : [facility], 1 [facility], [address] CD19 Absolute <25(L) 86 - 488 cells/mcL CRYS Comment: Verified Testing performed by: [facility], [address] [place] [address], [address] [id number] pct 4(L) 5 - 25 % [facility] AN[facility]IO Comment:Testing performed by : [facility], [address] [place]., [address] [id number] Absolute 59(L) 76 - 467 cells/mcL [facility] ANTONIO Comment:Testing performed by : [facility], 1 [facility], [address] CD4/CD8 ratio 1.5 0.9 - 4.4 [facility] Comment:Testing performed by : [facility], 1 [facility], [address] Blood 02/07/2025 9:19 AM CDT 02/07/2025 1:26 PM CDT us Barb Harding MD LAB BLOOD ORDERABLES Final Result Performing Organization Address City/State/[facility] [[email or web address]] Co de Phone Number [facility] Department [place] [address] * CBC with auto differential (02/07/2025 9:19 AM CDT) WBC 6.47 3.80 - 9.90 K/cumm Comment:Testing performed by : [address] [address] Hgb 12.1 11.9 - 15.5 g/dL [facility] Comment:Testing performed by : [address] [address] Hct 37.0 35.6 - 45.5 % [facility] Comment:Testing performed by : [address] [address] Plt 245 150 - 400 K/cumm [facility] Comment:Testing performed by : [address] [address] MPV 9.5 9.1 - 12.3 fL [facility] Comment:Testing performed by : [address], [address] RBC 4.13 3.90 - 5.20 M/cumm [facility] Comment:Testing performed by : [address] [address] MCV 89.6 81.3 - 96.4 fL [facility] Comment:Testing performed by : [address] [address] MCH 29.3 27.1 - 33.3 pg [facility]IO Comment:Testing performed by : [address] [address] MCHC 32.7 32.3 - 35.7 g/dL [facility] Comment:Testing performed by : [address] [address] RDW CV 14.2 11.1 - 14.9 % [facility] Comment:Testing performed by : [address] [address] RDW SD 45.9 35.7 - 48.1 fL [facility] Comment:Testing performed by : [address] [address] NRBC abs 0.00 0.00 - 0.01 K/cumm [facility] Comment:Testing performed by : [address] [address] ANC Prelim 4.23 1.50 - 6.50 K/cumm [facility] Comment: Interpretive Data The rapid ANC is a preliminary automated count and may vary from the final ANC (Neut Abs) reported in the WBC differential that follows. Current interpretive data was last revised 2024. Testing performed by: [address] [address] Blood 02/07/2025 9:19 AM CDT 02/07/2025 9:21 AM CDT us Doreen Petersen NP LAB BLOOD ORDERABLES F inal Result [facility] [facility] Department of Laboratories [place], [place] [id number] * Lactate dehydrogenase (LD) (02/07/2025 9:19 AM CDT) Pathologist [facility] Lactate dehydrogenase (LDH) 208 100 - 250 Units/L Comment:Testing performed by : [address] [address] Blood 02/07/2025 9:19 AM CDT 02/07/2025 9:21 AM CDT Doreen Petersen NP LAB BLOOD ORDERABLES F inal Result Performing Organization Address [facility] [[email or web address]] Co de Phone Number [address] [place] [address] * (ABNORMAL) IgG (02/07/2025 9:19 AM CDT) [facility] Immunoglobulin G 546(L) 700 - 1,600 mg/dL Blood 02/07/2025 9:19 AM CDT 02/07/2025 12:38 PM CDT Barb Harding MD LAB BLOOD ORDERABLES Final Result Performing Organization Address [facility] de Phone Number [address] [address] * Comprehensive metabolic panel (02/07/2025 9:19 AM CDT) [facility] Sodium 142 135 - 145 mmol/L Comment:Testing performed by : [address] [address] Potassium, pl 4.5 3.3 - 4.9 mmol/L [facility] Comment:Testing performed by : [address] [address] Chloride 105 97 - 110 mmol/L [facility] Comment:Testing performed by : [address] [address] CO2 27 22 - 32 mmol/L [facility] Comment:Testing performed by : [address] [address] Anion gap 10 2 - 15 mmol/L [facility] Comment:Testing performed by : [address] [address] BUN 21 6 - 25 mg/dL [facility] Comment:Testing performed by : [address] [address] Creatinine 0.70 0.60 - 1.10 mg/dL [facility] Comment:Testing performed by : [address] [address] Glucose 98 70 - 199 mg/dL [facility] Comment: Interpretive Data Fasting glucose >/= 126 [...] was last revised 2022. Testing performed by: [address] [address] Calcium 9.5 8.5 - 10.3 mg/dL [facility] Comment:Testing performed by : [address] [address] Bilirubin, total 0.3 0.1 - 1.2 mg/dL [facility] Comment:Testing performed by : [address] [address] Protein, pl 6.6 6.5 - 8.5 g/dL [facility] Comment:Testing performed by : [address] [address] Albumin 4.6 3.5 - 5.0 g/dL [facility] Comment:Testing performed by : [address] [address] Alk phos 61 40 - 130 Units/L [facility] Comment:Testing performed by : [address] [address] ALT 22 7 - 45 Units/L [facility] Comment:Testing performed by : [address] [address] AST 23 10 - 45 Units/L [facility] Comment:Testing performed by : [facility] [address] [place] [address]., [address] Blood 02/07/2025 9:19 AM CDT 02/07/2025 9:21 AM CDT Doreen Petersen NP LAB BLOOD ORDERABLES F inal Result [facility] [address] [facility] [place] [address] * Colonoscopy (08/07/2023 1:35 PM ELEVATED WORK PLATFORM OPERATOR) Anatomical Region Laterality Modality Other Historical Provider ENDOSCOPY PROCEDURES Kayy l Result from Last 3 Months or Most Recently Relevant to Health Maintenance Insurance [facility] H[facility]/PPO Address: [address] [address] [place] [address] [employer] Advance Directives For more information, please contact: [phone] * Full Code (Latest Code Status on File) Date Activated Date Inactivated Comments 02/18/2024 11:16 AM 02/19/2024 4:39 AM Care Teams Molding Press Operator Relationship Specialty Start Date End Date Malissa Soriano MD [facility] [place] [address] [place] [address] PCP - General Family Practice 12/13/24 Barb Harding MD [address] DIV IM BONE MARROW TRANSPLANT, [address] [place] [address] Medical Oncologist/Box Machine Operator Hematology 01/05/24 Tommy Cerda MD [address] [facility] [address] [facility] [address] [place] [address] Referring Physician Gastroenterology 01/09/24
--- OUTSIDE RECORDS SUMMARY | 2025-05-02 12:08 | XMS_ITS | Clinical Summary ---
Author Organization [employer] [address] [place] [address] Address [address] [place] [address] Care Team Providers Care Dedicated Truck Driver Name Role Phone Christoph Driscoll MD Primary Care Provider [phone] Social History Tobacco Use Types Packs/Day Years Used Date Smoking Tobacco: Never Assessed Comments Unknown Sex and Gender Information Value Date Recorded Sex Assigned at Not on file Legal Sex Female 10:47 AM DATACAP DEVELOPER Gender Identity Not on file Sexual Orientation [...] 2009 OSTEOPOROSIS SCREENING 2024 INFLUENZA VACCINE (#1) 2025 RSV VACCINE (60+ or ) (1 - 1-dose 75+ series) 2034 Care Teams Dedicated Truck Driver Relationship Specialty Start Date End Date Christoph Driscoll MD [address] [place] [phone] PCP - General Internal Medicine 12/08/19
--- OUTSIDE RECORDS SUMMARY | 2025-05-02 12:08 | XMS_ITS | Referral Summary ---
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) 02/07/2025 Orders Only [facility] Oncology [address] [address] Barb Harding MD 02/07/2025 Orders Only [facility] Physicians [facility] Oncology [address] [place] [phone] Bertha Ramirez, drug room clerk lymphocytic leukemia of B-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 (HCC) (Primary Dx) 02/07/2025 9:00 AM CDT [facility] [address] [address] Chronic lymphocytic leukemia of B-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 (HCC) 02/07/2025 9:20 AM CDT Office Visit [facility] Physicians [facility] Bone Marrow Transplant [address] [place] [phone] Barb Harding MD Chronic lymphocytic leukemia of [...] on file Legal Sex Female 8:39 AM MANAGER SUPPORT Gender Identity Not on file Sexual Orientation [...] Body Mass Index 28.26 11/01/2024 12:06 PM MANAGER SUPPORT Plan of Treatment Not on file Procedures [...] remission (HCC) COLONOSCOPY Routine 08/07/2023 1:35 PM MANAGER SUPPORT from Last 3 Months or Most Recently Relevant to Health Maintenance Results * eGFR (04/18/2025 4:08 PM CDT) eGFR 81 >=60 mL/min/1. 73 m2 Comment: [...] was last reviewed 2021. Testing performed by: [address] [address] Blood 04/18/2025 4:08 PM CDT 04/18/2025 4:11 PM CDT Barb Harding MD LAB BLOOD ORDERABLES Final Result [facility] [address] [facility] [place] [address] * (ABNORMAL) Differential, auto (04/18/2025 4:08 PM CDT) Pathologist [facility] Neutrophil abs 4.13 1.50 - 6.50 K/cumm Comment:Testing performed by : [address] [address] Imm gran abs 0.11(H) 0.00 - 0.10 K/cumm [facility] Comment:Testing performed by : [address] [address] Lymphocyte abs 1.53 0.80 - 3.30 K/cumm [facility] Comment:Testing performed by : [address] [address] Monocyte abs 0.80 0.20 - 0.80 K/cumm [facility] Comment:Testing performed by : [address], [place]., [address] Eosinophil abs 0.00 0.00 - 0.50 K/cumm [facility] Comment:Testing performed by : [address], [place]., [address] Basophil abs 0.02 0.00 - 0.10 K/cumm [facility] Comment:Testing performed by : [address] [address] Neutrophil pct 62.7 % [facility] Comment: Interpretive Data Percent cell count reference ranges are not reported, since discordance with absolute values may lead to misinterpretation of CBC data. Current Interpretive Data was last revised on 2018. Testing performed by: [address] [address] Imm gran pct 1.7 % [facility] Comment: Interpretive Data Percent cell count reference ranges are not reported, since discordance with absolute values may lead to misinterpretation of CBC data. Current Interpretive Data was last revised on 2018. Testing performed by: [address] [address] Lymphocyte pct 23.2 % [facility] Comment: Interpretive Data Percent cell count reference ranges are not reported, since discordance with absolute values may lead to misinterpretation of CBC data. Current Interpretive Data was last revised on 2018. Testing performed by: [address] [address] Monocyte pct 12.1 % [facility] Comment: Interpretive Data Percent cell count reference ranges are not reported, since discordance with absolute values may lead to misinterpretation of CBC data. Current Interpretive Data was last revised on 2018. Testing performed by: [address] [address] Eosinophil pct 0.0 % [facility] Comment: Interpretive Data Percent cell count reference ranges are not reported, since discordance with absolute values may lead to misinterpretation of CBC data. Current Interpretive Data was last revised on 2018. Testing performed by: [address] [address] Basophil pct 0.3 % [facility] Comment: Interpretive Data Percent cell count reference ranges are not reported, since discordance with absolute values may lead to misinterpretation of CBC data. Current Interpretive Data was last revised on 2018. Testing performed by: [address] [address] Blood 04/18/2025 4:08 PM CDT 04/18/2025 4:11 PM CDT us Barb Harding MD LAB BLOOD ORDERABLES Final Result [facility] [place] [address] * CBC with auto differential (04/18/2025 4:08 PM CDT) WBC 6.59 3.80 - 9.90 K/cumm Comment:Testing performed by : [address] [address] Hgb 11.9 11.9 - 15.5 g/dL [facility] Comment:Testing performed by : [address] [address] Hct 35.7 35.6 - 45.5 % [facility] Comment:Testing performed by : [address] [address] Plt 236 150 - 400 K/cumm [facility] Comment:Testing performed by : [address] [address] MPV 9.6 9.1 - 12.3 fL [facility] Comment:Testing performed by : [address] [address] RBC 4.08 3.90 - 5.20 M/cumm [facility] Comment:Testing performed by : [address] [address] MCV 87.5 81.3 - 96.4 fL [facility] Comment:Testing performed by : [address] [address] MCH 29.2 27.1 - 33.3 pg [facility] Comment:Testing performed by : [address] [address] MCHC 33.3 32.3 - 35.7 g/dL [facility] Comment:Testing performed by : [address] [address] RDW CV 13.5 11.1 - 14.9 % [facility] Comment:Testing performed by : [address] [address] RDW SD 43.4 35.7 - 48.1 fL [facility] Comment:Testing performed by : [address] [address] NRBC abs 0.00 0.00 - 0.01 K/cumm [facility] Comment:Testing performed by : [address] [address] ANC Prelim 4.13 1.50 - 6.50 K/cumm [facility] Comment: Interpretive Data The rapid ANC is a preliminary automated count and may vary from the final ANC (Neut Abs) reported in the WBC differential that follows. Current interpretive data was last revised 2024. Testing performed by: [address] [address] Blood 04/18/2025 4:08 PM CDT 04/18/2025 4:11 PM CDT us Barb Harding MD LAB BLOOD ORDERABLES Final Result [facility] [address] [facility] Department of Laboratories [place], [place] [id number] * Lactate dehydrogenase (LD) (04/18/2025 4:08 PM CDT) Lactate dehydrogenase (LDH) 222 100 - 250 Units/L Comment:Testing performed by : [address] [address] Blood 04/18/2025 4:08 PM CDT 04/18/2025 4:11 PM CDT Barb Harding MD LAB BLOOD ORDERABLES Final Result Performing Organization Address City/State/[facility] Co de Phone Number [facility] [address] [facility] [place] [address] * Comprehensive metabolic panel (04/18/2025 4:08 PM CDT) Sodium 143 135 - 145 mmol/L Comment:Testing performed by : [address] [address] Potassium, pl 3.7 3.3 - 4.9 mmol/L [facility] Comment:Testing performed by : [address] [address] Chloride 107 97 - 110 mmol/L [facility] Comment:Testing performed by : [address] [address] CO2 24 22 - 32 mmol/L [facility] Comment:Testing performed by : [address] [address] Anion gap 12 2 - 15 mmol/L [facility] Comment:Testing performed by : [address] [address] BUN 18 6 - 25 mg/dL [facility] Comment:Testing performed by : [address] [address] Creatinine 0.80 0.60 - 1.10 mg/dL [facility] Comment:Testing performed by : [address] [address] Glucose 90 70 - 199 mg/dL [facility] [...] was last revised 2022. Testing performed by: [address] [address] Calcium 9.6 8.5 - 10.3 mg/dL [facility] Comment:Testing performed by : [address] [address] Bilirubin, total 0.2 0.1 - 1.2 mg/dL [facility] Comment:Testing performed by : [address] [address] Protein, pl 6.5 6.5 - 8.5 g/dL [facility] Comment:Testing performed by : [address] [address] Albumin 4.5 3.5 - 5.0 g/dL [facility] Comment:Testing performed by : [address] [address] Alk phos 58 40 - 130 Units/L [facility] Comment:Testing performed by : [address] [address] ALT 17 7 - 45 Units/L [facility] Comment:Testing performed by : [address] [address] AST 18 10 - 45 Units/L [facility] Comment:Testing performed by : [address] [address] Blood 04/18/2025 4:08 PM CDT 04/18/2025 4:11 PM CDT us Barb Harding MD LAB BLOOD ORDERABLES Final Result [facility] [address] [facility] [place] [address] * eGFR (02/07/2025 9:19 AM CDT) [facility] eGFR >90 >=60 mL/min/1. 73 m2 Comment: [...] was last reviewed 2021. Testing performed by: [address] [address] Blood 02/07/2025 9:19 AM CDT 02/07/2025 9:21 AM CDT us Doreen Petersen NP LAB BLOOD ORDERABLES F inal Result [facility]52 [facility] [place] [address] * Differential, auto (02/07/2025 9:19 AM CDT) Neutrophil abs 4.23 1.50 - 6.50 K/cumm Comment:Testing performed by : [address] [address] Imm gran abs 0.08 0.00 - 0.10 K/cumm [facility] Comment:Testing performed by : [address] [address] Lymphocyte abs 1.52 0.80 - 3.30 K/cumm [facility] Comment:Testing performed by : [address] [address] Monocyte abs 0.63 0.20 - 0.80 K/cumm [facility] Comment:Testing performed by : [address] [address] Eosinophil abs 0.00 0.00 - 0.50 K/cumm [facility] Comment:Testing performed by : [address] [address] Basophil abs 0.01 0.00 - 0.10 K/cumm [facility] Comment:Testing performed by : [address] [address] Neutrophil pct 65.4 % [facility] Comment: Interpretive Data Percent cell count reference ranges are not reported, since discordance with absolute values may lead to misinterpretation of CBC data. Current Interpretive Data was last revised on 2018. Testing performed by: [address] [address] Imm gran pct 1.2 % [facility] Comment: Interpretive Data Percent cell count reference ranges are not reported, since discordance with absolute values may lead to misinterpretation of CBC data. Current Interpretive Data was last revised on 2018. Testing performed by: [address] [address] Lymphocyte pct 23.5 % [facility] Comment: Interpretive Data Percent cell count reference ranges are not reported, since discordance with absolute values may lead to misinterpretation of CBC data. Current Interpretive Data was last revised on 2018. Testing performed by: [address] [address] Monocyte pct 9.7 % [facility] Comment: Interpretive Data Percent cell count reference ranges are not reported, since discordance with absolute values may lead to misinterpretation of CBC data. Current Interpretive Data was last revised on 2018. Testing performed by: [address] [address] Eosinophil pct 0.0 % [facility] Comment: Interpretive Data Percent cell count reference ranges are not reported, since discordance with absolute values may lead to misinterpretation of CBC data. Current Interpretive Data was last revised on 2018. Testing performed by: [address] [address] Basophil pct 0.2 % [facility] Comment: Interpretive Data Percent cell count reference ranges are not reported, since discordance with absolute values may lead to misinterpretation of CBC data. Current Interpretive Data was last revised on 2018. Testing performed by: [facility], [address] [place] [address]., [address] Blood 02/07/2025 9:19 AM CDT 02/07/2025 9:21 AM CDT Doreen Petersen NP LAB BLOOD ORDERABLES F inal Result [facility] [place] [address] * (ABNORMAL) Immune competence (02/07/2025 9:19 AM CDT) CD3 pct 95(H) 60 - 88 % Comment:Testing performed by : [facility], [address] [place] [address]., [address] CD3 Absolute 1,528 661 - 1,963 cells/mcL [facility] Comment:Testing performed by : [facility], [address] [place] [address], [address] CD4 pct 56 31 - 64 % [facility] Comment:Testing performed by : [facility], [address] [place] [address]., [address] CD4 Absolute 941 365 - 1,294 cells/mcL [facility] Comment:Testing performed by : [facility], [address] [facility], [address] CD8 pct 37 12 - 40 % [facility] Comment:Testing performed by : [facility], [address] [facility], [address] CD8 Absolute 611 187 - 781 cells/mcL [facility] Comment:Testing performed by : [facility], [address] [facility], [address] CD19 pct 0(L) 6 - 25 % [facility] Comment:Testing performed by : [facility], [address] [place]., [address] CD19 Absolute <25(L) 86 - 488 cells/mcL [facility] Comment: Verified Testing performed by: [facility], [address] [facility], [address] [id number] pct 4(L) 5 - 25 % [facility] Comment:Testing performed by : [facility], [address] [facility], [address] [id number] Absolute 59(L) 76 - 467 cells/mcL [facility] Comment:Testing performed by : [facility], [address] [facility], [address] CD4/CD8 ratio 1.5 0.9 - 4.4 [facility] Comment:Testing performed by : [facility], [address] [facility], [address] Blood 02/07/2025 9:19 AM CDT 02/07/2025 1:26 PM CDT us Barb Harding MD LAB BLOOD ORDERABLES Final Result [facility] [address] [facility] Department of Laboratories [place], [place] [id number] * CBC with auto differential (02/07/2025 9:19 AM CDT) WBC 6.47 3.80 - 9.90 K/cumm Comment:Testing performed by : [address] [address] Hgb 12.1 11.9 - 15.5 g/dL [facility] Comment:Testing performed by : [address] [address] Hct 37.0 35.6 - 45.5 % [facility] Comment:Testing performed by : [address] [address] Plt 245 150 - 400 K/cumm [facility] Comment:Testing performed by : [address] [address] MPV 9.5 9.1 - 12.3 fL [facility] Comment:Testing performed by : [address] [address] RBC 4.13 3.90 - 5.20 M/cumm [facility] Comment:Testing performed by : [address] [address] MCV 89.6 81.3 - 96.4 fL [facility] Comment:Testing performed by : [address] [address] MCH 29.3 27.1 - 33.3 pg [facility] Comment:Testing performed by : [address] [address] MCHC 32.7 32.3 - 35.7 g/dL [facility] Comment:Testing performed by : [address], [address] RDW CV 14.2 11.1 - 14.9 % [facility] Comment:Testing performed by : [address], [address] RDW SD 45.9 35.7 - 48.1 fL [facility] Comment:Testing performed by : [address] [address] NRBC abs 0.00 0.00 - 0.01 K/cumm [facility] Comment:Testing performed by : [address] [address] ANC Prelim 4.23 1.50 - 6.50 K/cumm [facility] Comment: Interpretive Data The rapid ANC is a preliminary automated count and may vary from the final ANC (Neut Abs) reported in the WBC differential that follows. Current interpretive data was last revised 2024. Testing performed by: [address] [address] Blood 02/07/2025 9:19 AM CDT 02/07/2025 9:21 AM CDT Doreen Petersen NP LAB BLOOD ORDERABLES F inal Result Performing Organization Address City/[facility] Co de Phone Number [address] [place] [address] * Lactate dehydrogenase (LD) (02/07/2025 9:19 AM CDT) [facility] Lactate dehydrogenase (LDH) 208 100 - 250 Units/L Comment:Testing performed by : [address] [address] Blood 02/07/2025 9:19 AM CDT 02/07/2025 9:21 AM CDT Doreen Petersen NP LAB BLOOD ORDERABLES F inal Result Performing Organization Address [facility] Co de Phone Number [address] [address] * (ABNORMAL) IgG (02/07/2025 9:19 AM CDT) [facility] Immunoglobulin G 546(L) 700 - 1,600 mg/dL Blood 02/07/2025 9:19 AM CDT 02/07/2025 12:38 PM CDT Barb Harding MD LAB BLOOD ORDERABLES Final Result Performing Organization Address [facility] de Phone Number [address] [address] * Comprehensive metabolic panel (02/07/2025 9:19 AM CDT) [facility] Sodium 142 135 - 145 mmol/L Comment:Testing performed by : [address] [address] Potassium, pl 4.5 3.3 - 4.9 mmol/L [facility] Comment:Testing performed by : [address] [address] Chloride 105 97 - 110 mmol/L [facility] Comment:Testing performed by : [address] [address] CO2 27 22 - 32 mmol/L [facility] Comment:Testing performed by : [address] [address] Anion gap 10 2 - 15 mmol/L [facility] Comment:Testing performed by : [address] [address] BUN 21 6 - 25 mg/dL [facility] Comment:Testing performed by : [address] [address] Creatinine 0.70 0.60 - 1.10 mg/dL [facility] Comment:Testing performed by : [address] [address] Glucose 98 70 - 199 mg/dL [facility] Comment: Interpretive Data Fasting glucose >/= 126 [...] was last revised 2022. Testing performed by: [address] [address] Calcium 9.5 8.5 - 10.3 mg/dL [facility] Comment:Testing performed by : [address] [address] Bilirubin, total 0.3 0.1 - 1.2 mg/dL [facility] Comment:Testing performed by : [address] [address] Protein, pl 6.6 6.5 - 8.5 g/dL [facility] Comment:Testing performed by : [address] [address] Albumin 4.6 3.5 - 5.0 g/dL [facility] Comment:Testing performed by : [address] [address] Alk phos 61 40 - 130 Units/L [facility] Comment:Testing performed by : [facility], [address] [place] [address]., [address] ALT 22 7 - 45 Units/L [facility] Comment:Testing performed by : [address] [address] AST 23 10 - 45 Units/L [facility] Comment:Testing performed by : [address] [address] Blood 02/07/2025 9:19 AM CDT 02/07/2025 9:21 AM CDT Doreen Petersen NP LAB BLOOD ORDERABLES F inal Result [facility] [address] [facility] [place] [address] * Colonoscopy (08/07/2023 1:35 PM MANAGER SUPPORT) Anatomical Region Laterality Modality Other Historical Provider MD ENDOSCOPY PROCEDURES Kayy l Result from Last 3 Months or Most Recently Relevant to Health Maintenance Insurance [facility] OOS [facility] CHOICE PLUS [facility] HMO/PPO Address: [address] [address] [place] [address] BLUE ACCESS OOS Advance Directives For more information, please contact: [phone] * Full Code (Latest Code Status on File) Date Activated Date Inactivated Comments 02/18/2024 11:16 AM 02/19/2024 4:39 AM Care Teams Brake Machine Operator Relationship Specialty Start Date End Date Malissa Soriano MD [address] [place] [address] [address] [place] [address] PCP - General Family Practice 12/13/24 Barb Harding MD [address] DIV IM BONE MARROW [employer]ANT, [address] [place] [address] Medical Oncologist/Signal Manager Hematology 01/05/24 Tommy Cerda MD [address] [facility] [address] [place] [address] Referring Physician Gastroenterology 01/09/24
--- OUTSIDE RECORDS SUMMARY | 2025-05-02 12:08 | XMS_ITS | Clinical Summary ---
Author Organization [facility] [employer] Address [address] [facility] [place] [address] Care Team Providers Care Freelance Graphic Designer Name Role Phone Christoph Driscoll MD Primary Care Provider [phone] Jonny Watters MD Unavailable [phone] Source Comments [facility],non-owned Affiliates and Associated Physician Practices is amultiple site organization consisting of ambulatory clinics and hospital sitesin [place], [place], [place] and [place]. This disclosure is being madepursuant to the Care Everywhere program and may not contain all information available regarding this patient. Last updated 18.[facility] [employer] Allergies Active Allergy Reactions Criticality Noted Date [...] on file Legal Sex Female 1:15 PM PEDIATRIC CRITICAL CARE NURSE Gender Identity Not on file Sexual Orientation Not on file Last Filed Vital Signs Vital Sign Reading Time Taken Comments Blood Pressure - - Pulse - - Temperature - - Respiratory Rate - - Oxygen Saturation - - Inhaled Oxygen Concentration - - Weight 74.8 kg (165 lb) 01/01/2012 1:16 PM CDT Height 162.6 cm (5' 4) 01/01/2012 1:16 PM CDT Body Mass Index [...] - COLON CA SCREENING 1959 MAMMOGRAM 1959 HEPATITIS C SCREENING 04/04/1977 DTAP/TDAP/TD VACCINES (1 - Tdap) 1978 PNEUMOCOCCAL VACCINE 50+ (1 of 1 - PCV) 2009 ZOSTER VACCINE (1 of 2) 2009 COVID-19 VACCINE ( - 2023-2 5 season) 2024 DEPRESSION SCREENING 09/29/2024 INFLUENZA VACCINE (#1) 2025 Respiratory Syncytial Virus (RSV) Vaccine Pt: [...] Insurance BC[place] [facility] BCBS/[place] Care Teams Freelance Graphic Designer Relationship Specialty Start Date End Date Christoph Driscoll MD [address] [place] [phone] PCP - General Internal Medicine 01/01/12 Jonny Watters MD [address] [place] [address] Neurological Surgery 01/01/12
--- OUTSIDE RECORDS SUMMARY | 2025-05-02 12:08 | XMS_ITS ---
Author Organization [facility] Address [address] [place] [address] Care Team Providers Care Metalsmith Helper Name Role Phone Barb Harding MD Unavailable [phone] Tommy Cerda MD Unavailable [phone] Malissa Soriano MD Primary Care Provider [...] at outside facility* Plan Start Date:05/19/2024 Plan Provider:Brab Harding MD Linked Problems Chronic lymphocytic leukemia of B-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 (HCC) Treatment Medications Current Day (Day 1 , Cycle 7 - Planned for 02/07/2025) Next Day (Day 1, Cycle 8 - Planned for 03/07/2025) riTUXimab (RITUXAN) IVPB in 500 mLriTUXimab-abbs (TRUXIMA)venetoclax (VENCLEXTA)venetoclax (VENCLEXTA) 10 mg-50 mg- 100 mg venetoclax (VENCLEXTA) 100 mg tablet venetoclax (VENCLEXTA) 100 [...]
== END 2025-05-02 12:04 | disposition home or self-care (01) ==
LOC: CHSIMG 12:05
PROVIDERS: PCP Family Medicine; Visit Provider Obstetrics & Gynecology
DX: Z12.31 Encounter for screening mammogram for malignant neoplasm of breast (principal)
CPT/HCPCS: 77063; 77067

== ENCOUNTER 2025-05-27 08:34 | Outpatient (CLI) | payer BC, SELFPAY ==
--- OUTSIDE RECORDS SUMMARY | 2000-04-28 11:45 | XMS_ITS | Continuity of Care Document ---
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 [address] , [address], [place], [address], [place]. tel:[phone] Family History Family Member Type Diagnosis Age At Onset No Information Payers Payer name Insurance type Covered green party ID Authoriza tion(s) [employer] SOI CI [id number] Social History Type Description Quantity Date Captured [...]
--- OUTSIDE RECORDS SUMMARY | 2025-05-27 08:39 | XMS_ITS | Clinical Summary ---
Author Organization [facility] Address [address] [place] [address] Care Team Providers Care Records Associate Name Role Phone Barb Harding MD Unavailable [phone] Tommy Cerda MD Unavailable [phone] Malissa Soriano MD Primary Care Provider Allergies Active Allergy Reactions Criticality Noted Date Comments Sulfamethoxazole-Trimethoprim Diarrhea,Vomiting Low 02/18/2024 Levofloxacin Rash Medium 01/01/2012 Sulfa (Sulfonamide Antibiotics) Diarrhea,Vomiting Low 04/15/2018 Medications azelastine (ASTELIN) 137 mcg (0.1 %) nasal spray 10 018 Active fenofibrate nanocrystallized (TRICOR,TRIGLIDE) 145 mg tablet 9 018 Active lovastatin (MEVACOR) 40 mg tablet 2 018 Active omeprazole (PriLOSEC) 20 mg capsule 0 018 Active ergocalciferol, vitamin D2, (VITAMIN D2 ORAL) Take by mouth Active loratadine (CLARITIN) 10 mg tablet Take 1 tablet (10 mg total) by mouth daily Active multivitamin with minerals tablet Take 1 tablet by mouth daily Active colestipoL (COLESTID) 1 gram tablet Take by mouth 2 (two) times a day 024 Active prochlorperazine (Compazine) 10 mg tabletIndications: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 DO NOT CUT, CRUSH OR SPLIT. 56 tablet 5 025 Active venetoclax (VENCLEXTA) 100 mg tabletIndications:C hronic Lymphocytic Leukemia Take 2 tablets (200 mg total) by mouth daily Take with food and water. Do not cut, crush or split. 120 tablet 5 024 2024 Discontinued Active Problems Problem Noted Date Diagnosed Date Lower extremity edema 05/24/2024 Palpitations 05/24/2024 Hyperlipidemia 05/24/2024 Chronic lymphocytic leukemia (CLL), B-cell 03/25 Encounters Date Type Department Care Team Description 04/18/2025 4:00 PM CDT Lab [facility] [place] [address] Chronic lymphocytic leukemia of B-cell type not [...] on file Legal Sex Female 8:39 AM WATER/WASTEWATER PROJECT ENGINEER Gender Identity Not on file Sexual Orientation [...] Body Mass Index 28.26 11/01/2024 12:06 PM WATER/WASTEWATER PROJECT ENGINEER Plan of Treatment Health Maintenance Due Date [...] remission (HCC) COLONOSCOPY Routine 08/07/2023 1:35 PM WATER/WASTEWATER PROJECT ENGINEER from Last 3 Months or Most Recently [...] was last reviewed 2021. Testing performed by: [address] [address] Blood 04/18/2025 4:08 PM CDT 04/18/2025 4:11 PM CDT Barb Harding MD LAB BLOOD ORDERABLES Final Result [facility] [address] [facility] [place] [address] * (ABNORMAL) Differential, auto (04/18/2025 4:08 PM CDT) Neutrophil abs 4.13 1.50 - 6.50 K/cumm Comment:Testing performed by : [address] [address] Imm gran abs 0.11(H) 0.00 - 0.10 K/cumm [facility] Comment:Testing performed by : [address] [address] Lymphocyte abs 1.53 0.80 - 3.30 K/cumm [facility] Comment:Testing performed by : [address] [address] Monocyte abs 0.80 0.20 - 0.80 K/cumm [facility] Comment:Testing performed by : [address] [address] Eosinophil abs 0.00 0.00 - 0.50 K/cumm [facility]:Testing performed by : [address] [address] Basophil abs 0.02 0.00 - 0.10 K/cumm [facility] Comment:Testing performed by : [address] [address] Neutrophil pct 62.7 % [facility] Comment: Interpretive Data Percent cell count reference ranges are not reported, since discordance with absolute values may lead to misinterpretation of CBC data. Current Interpretive Data was last revised on 2018. Testing performed by: [address] [address] Imm gran pct 1.7 % [facility] Comment: Interpretive Data Percent cell count reference ranges are not reported, since discordance with absolute values may lead to misinterpretation of CBC data. Current Interpretive Data was last revised on 2018. Testing performed by: [address] [address] Lymphocyte pct 23.2 % [facility] Comment: Interpretive Data Percent cell count reference ranges are not reported, since discordance with absolute values may lead to misinterpretation of CBC data. Current Interpretive Data was last revised on 2018. Testing performed by: [address] [address] Monocyte pct 12.1 % [facility] Comment: Interpretive Data Percent cell count reference ranges are not reported, since discordance with absolute values may lead to misinterpretation of CBC data. Current Interpretive Data was last revised on 2018. Testing performed by: [address] [address] Eosinophil pct 0.0 % [facility] Comment: Interpretive Data Percent cell count reference ranges are not reported, since discordance with absolute values may lead to misinterpretation of CBC data. Current Interpretive Data was last revised on 2018. Testing performed by: [address] [address] Basophil pct 0.3 % [facility] Comment: Interpretive Data Percent cell count reference ranges are not reported, since discordance with absolute values may lead to misinterpretation of CBC data. Current Interpretive Data was last revised on 2018. Testing performed by: [address] [address] Blood 04/18/2025 4:08 PM CDT 04/18/2025 4:11 PM CDT us Barb Harding MD LAB BLOOD ORDERABLES Final Result [facility] [place] [address] * CBC with auto differential (04/18/2025 4:08 PM CDT) WBC 6.59 3.80 - 9.90 K/cumm Comment:Testing performed by : [address] [address] Hgb 11.9 11.9 - 15.5 g/dL [facility] Comment:Testing performed by : [address] [address] Hct 35.7 35.6 - 45.5 % [facility] Comment:Testing performed by : [address] [address] Plt 236 150 - 400 K/cumm [facility] Comment:Testing performed by : [address] [address] MPV 9.6 9.1 - 12.3 fL [facility] Comment:Testing performed by : [address] [address] RBC 4.08 3.90 - 5.20 M/cumm [facility] Comment:Testing performed by : [address] [address] MCV 87.5 81.3 - 96.4 fL [facility] Comment:Testing performed by : [address] [address] MCH 29.2 27.1 - 33.3 pg [facility] Comment:Testing performed by : [address] [address] MCHC 33.3 32.3 - 35.7 g/dL [facility] Comment:Testing performed by : [address] [address] RDW CV 13.5 11.1 - 14.9 % [facility] Comment:Testing performed by : [address] [address] RDW SD 43.4 35.7 - 48.1 fL [facility] Comment:Testing performed by : [address] [address] NRBC abs 0.00 0.00 - 0.01 K/cumm [facility] Comment:Testing performed by : [address] [address] ANC Prelim 4.13 1.50 - 6.50 K/cumm [facility] Comment: Interpretive Data The rapid ANC is a preliminary automated count and may vary from the final ANC (Neut Abs) reported in the WBC differential that follows. Current interpretive data was last revised 2024. Testing performed by: [address] [address] Blood 04/18/2025 4:08 PM CDT 04/18/2025 4:11 PM CDT us Barb Harding MD LAB BLOOD ORDERABLES Final Result [facility] [address] [facility] [place] [address] * Lactate dehydrogenase (LD) (04/18/2025 4:08 PM CDT) Lactate dehydrogenase (LDH) 222 100 - 250 Units/L Comment:Testing performed by : [address], [address] Blood 04/18/2025 4:08 PM CDT 04/18/2025 4:11 PM CDT Barb Harding MD LAB BLOOD ORDERABLES Final Result [facility] [address] [facility] [place] [address] * Comprehensive metabolic panel (04/18/2025 4:08 PM CDT) Sodium 143 135 - 145 mmol/L Comment:Testing performed by : [address] [address] Potassium, pl 3.7 3.3 - 4.9 mmol/L [facility] Comment:Testing performed by : [address] [address] Chloride 107 97 - 110 mmol/L [facility] Comment:Testing performed by : [address] [address] CO2 24 22 - 32 mmol/L [facility] Comment:Testing performed by : [address] [address] Anion gap 12 2 - 15 mmol/L [facility] Comment:Testing performed by : [address] [address] BUN 18 6 - 25 mg/dL [facility] Comment:Testing performed by : [address] [address] Creatinine 0.80 0.60 - 1.10 mg/dL [facility] Comment:Testing performed by : [address] [address] Glucose 90 70 - 199 mg/dL [facility] [...] was last revised 2022. Testing performed by: [address] [address] Calcium 9.6 8.5 - 10.3 mg/dL [facility] Comment:Testing performed by : [address] [address] Bilirubin, total 0.2 0.1 - 1.2 mg/dL [facility] Comment:Testing performed by : [address] [address] Protein, pl 6.5 6.5 - 8.5 g/dL [facility] Comment:Testing performed by : [address] [address] Albumin 4.5 3.5 - 5.0 g/dL [facility] Comment:Testing performed by : [address] [address] Alk phos 58 40 - 130 Units/L [facility] Comment:Testing performed by : [address] [address] ALT 17 7 - 45 Units/L [facility]:Testing performed by : [address] [address] AST 18 10 - 45 Units/L [facility] Comment:Testing performed by : [address] [address] Blood 04/18/2025 4:08 PM CDT 04/18/2025 4:11 PM CDT Barb Harding MD LAB BLOOD ORDERABLES Final Result [facility] [address] [facility] Department of Laboratories [place], [place] [id number] * Colonoscopy (08/07/2023 1:35 PM WATER/WASTEWATER PROJECT ENGINEER) Anatomical Region Laterality Modality Other Historical Provider ENDOSCOPY PROCEDURES Kayy l Result from Last 3 Months or Most Recently Relevant to Health Maintenance Insurance BLUE ACCESS OOS ANTHEM PREFERRED [facility] CHOICE PLUS [employer] OOS Advance Directives For more information, please contact: [phone] * Full Code (Latest Code Status on File) Date Activated Date Inactivated Comments 02/18/2024 11:16 AM 02/19/2024 4:39 AM Care Teams Records Associate Relationship Specialty Start Date End Date Malissa Soriano MD [address] [facility] [address] [place] [address] PCP - General Family Practice 12/13/24 Barb Harding MD [address] DIV IM BONE MARROW TRANSPLANT, [address] [place] [address] Medical Oncologist/Applications Sales Consultant Hematology 01/05/24 Tommy Cerda MD [address] [place] [address] Referring Physician Gastroenterology 01/09/24
--- OUTSIDE RECORDS SUMMARY | 2025-05-27 08:39 | XMS_ITS | Clinical Summary ---
Author Organization [employer] [address] [place] [address] Address [address] [place] [address] Care Team Providers Care Electrical Accessories I Assembler Name Role Phone Christoph Driscoll MD Primary Care Provider [phone] Social History Tobacco Use Types Packs/Day Years Used Date Smoking Tobacco: Never Assessed Comments Unknown Sex and Gender Information Value Date Recorded Sex Assigned at Not on file Legal Sex Female 10:47 AM CHROME PLATER Gender Identity Not on file Sexual Orientation [...] - 1-dose 75+ series) 2034 Care Teams Electrical Accessories I Assembler Relationship Specialty Start Date End Date Christoph Driscoll MD [address] [place] [phone] PCP - General Internal Medicine 12/08/19
--- OUTSIDE RECORDS SUMMARY | 2025-05-27 08:39 | XMS_ITS | Clinical Summary ---
Author Organization [facility] [employer] Address [address] [facility] [place] [address] Care Team Providers Care Dev Technical Mgr Name Role Phone Christoph Driscoll MD Primary Care Provider [phone] Jonny Watters MD Unavailable [phone] Source Comments [facility],non-owned Affiliates and Associated Physician Practices is amultiple site organization consisting of ambulatory clinics and hospital sitesin [place], [place], [place] and [place]. This disclosure is being madepursuant to the Care Everywhere program and may not contain all information available regarding this patient. Last updated 18.[facility] [employer] Allergies Active Allergy Reactions Criticality Noted Date [...] on file Legal Sex Female 1:15 PM PALM AND BACK FORGER Gender Identity Not on file Sexual Orientation [...] Insurance BCBS/BL[place] BLUE [place] [facility] BCBS/[place] Care Teams Dev Technical Mgr Relationship Specialty Start Date End Date Christoph Driscoll MD [address] [place] [phone] PCP - General Internal Medicine 01/01/12 Jonny Watters MD [address] [place] [address] Neurological Surgery 01/01/12
--- OUTSIDE RECORDS SUMMARY | 2025-05-27 08:39 | XMS_ITS ---
Author Organization [facility] Address [address] [place] [address] Care Team Providers Care Wire Frame Dipper Name Role Phone Barb Harding MD Unavailable [phone] Tommy Cerda MD Unavailable [phone] Malissa Soriano MD Primary Care Provider [...]
[2025-05-27 18:31] LABS: Alanine Aminotransferase 25 U/L (6-35); Albumin Level 4.6 g/dL (3.5-5.1); Alkaline Phosphatase 50 U/L (38-126); Anion Gap 8 mmol/L (4-12); Aspartate Amino Transferase 29 U/L (14-36); Bilirubin,Total 0.3 mg/dL (0.2-1.3); Blood Urea Nitrogen 17 mg/dL (7-17); Calcium 9.7 mg/dL (8.4-10.2); Carbon Dioxide 26 mmol/L (22-30); Chloride 104 mmol/L (98-107); Cholesterol 217 mg/dL (0-200); Estimated Glomerular Filt Rate > 60; Glucose 92 mg/dL (65-110); HDL Direct 55 mg/dL; Potassium 4.2 mmol/L (3.4-5.0); Sodium 138 mmol/L (137-145); Total Protein 6.8 g/dL (6.3-8.2); Triglycerides 168 mg/dL (<150)
[2025-05-27 18:56] LABS: Thyroid Stimulating Hormone Reflex 1.460 uIU/mL (0.465-4.68)
== END 2025-05-27 08:35 | disposition home or self-care (01) ==
LOC: ANHGOSHLAB 08:34
PROVIDERS: PCP Nurse Practitioner Family; Visit Provider Nurse Practitioner Family
DX: E78.2 Mixed hyperlipidemia (principal); E55.9 Vitamin D deficiency, unspecified; Z13.29 Encounter for screening for other suspected endocrine disorder
CPT/HCPCS: 36415; 80053; 80061; 82306; 84443

== ENCOUNTER 2025-06-08 15:51 | Emergency (ER) | payer BC, SELFPAY ==
--- OUTSIDE RECORDS SUMMARY | 2000-04-28 11:45 | XMS_ITS | Continuity of Care Document ---
Author Organization [facility] Address [address] [place] [address] Phone Care Team Providers Care C 13 Catapult Operator Name Role Phone Katie Regalado Unavailable Unavailable Advance Directives Directive Yes / No Effective Date File Name No Information Encounters Encounter Description Practice Location Reason(s) For Visit Diagnoses Date Provider Providers Copied on Encounter [facility], [address], [place], [place], [id number], [place] tel:[phone] [facility] No Information [address] Wilson. [address] , [address], [place], [address], [place]. tel:[phone] Family History Family Member Type Diagnosis Age At Onset No Information Payers Payer name Insurance type Covered alliance party ID Authoriza tion(s) [employer] SOI CI [id number] Social History Type Description Quantity Date Captured Comments Sex Female Smoking Status No Information Chief Complaint And Reason For Visit No Information Reason For Referral Reason For Referral No Information History Of Present Illness Encounter Date Complaint History Of Prese nt Illness No Information Functional Status Date Functional Assessmen t No Information Instructions Date Instruction Additional Infor mation No Information Assessments Type Assessment Date No Information Patient Care Teams Name Effective Dates (start - stop) Status Members No Information
--- OUTSIDE RECORDS SUMMARY | 2000-04-28 11:45 | XMS_ITS | Continuity of Care Document ---
Author Organization [facility] Address [address] [place] [address] Phone Care Team Providers Care Instruments Sales Representative Name Role Phone Katie Regalado Unavailable Unavailable Advance Directives Directive Yes / No Effective Date File Name No Information Encounters Encounter Description Practice Location Reason(s) For Visit Diagnoses Date Provider Providers Copied on Encounter [facility], [address], [place], [place], [id number], [place] tel:[phone] [facility] No Information [address] Sabine Wilson. [address] , [address], [place], [address], [place]. tel:[phone] Family History Family Member Type Diagnosis Age At Onset No Information Payers Payer name Insurance type Covered libertarian ID Authoriza tion(s) [employer] SOI CI [id number] Social History Type Description Quantity Date Captured [...]
--- OUTSIDE RECORDS SUMMARY | 2025-06-08 15:58 | XMS_ITS ---
Author Organization [facility] Address [address] [place] [address] Care Team Providers Care Supervisor Fish Bait Processing Name Role Phone Barb Harding MD Unavailable [phone] Tommy Cerda MD Unavailable [phone] Malissa Soriano MD Primary Care Provider [...]
--- OUTSIDE RECORDS SUMMARY | 2025-06-08 15:58 | XMS_ITS | Clinical Summary ---
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
--- OUTSIDE RECORDS SUMMARY | 2025-06-08 15:58 | XMS_ITS | Clinical Summary ---
Author Organization [facility] [employer] Address [address] [facility] [place] [address] Care Team Providers Care Dryerman/Woman Name Role Phone Christoph Driscoll MD Primary Care Provider [phone] Jonny Watters MD Unavailable [phone] Source Comments [facility],non-owned Affiliates and Associated Physician Practices is amultiple site organization consisting of ambulatory clinics and hospital sitesin [place], [place]. This disclosure is being madepursuant to the Care Everywhere program and may not contain all information available regarding this patient. Last updated 18.[facility] [employer] Allergies Active Allergy Reactions Criticality Noted Date [...] on file Legal Sex Female 1:15 PM AMPOULE SEALER Gender Identity Not on file Sexual Orientation [...] 2009 ZOSTER VACCINE (1 of 2) 2009 DEPRESSION SCREENING 09/29/2024 COVID-19 VACCINE ( - 2023-2 5 season) 2025 INFLUENZA VACCINE (#1) 2025 Respiratory Syncytial Virus [...] Insurance BCBS/BLUE BLUE [place] BL[place] [facility] BCBS/[place] Care Teams Dryerman/Woman Relationship Specialty Start Date End Date Christoph Driscoll MD [address] [place] [phone] PCP - General Internal Medicine 01/01/12 Jonny Watters MD [address] [place] [address] Neurological Surgery 01/01/12
--- OUTSIDE RECORDS SUMMARY | 2025-06-08 15:58 | XMS_ITS | Clinical Summary ---
Author Organization [facility] Address [address] [place] [address] Care Team Providers Care Gis Programmer Name Role Phone Barb Harding MD Unavailable Tommy Cerda MD Unavailable [phone] Malissa Soriano MD Primary Care Provider Allergies [...] lotionIndications:Ac ne Rosacea Apply topically daily Active amoxicillin-clavulan ate XR (AUGMENTIN XR) 1,000-62.5 mg per 12 hr tablet Take by mouth 2 (two) times a day Active Venclexta 100 mg tabletIndications:Ch ronic lymphocytic leukemia of B-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 (HCC) TAKE 2 TABLETS (200 MG TOTAL) BY MOUTH DAILY TAKE WITH FOOD AND WATER. DO NOT CUT, CRUSH OR SPLIT. 56 tablet 5 05/09/20 25 Active Active Problems Problem Noted Date Diagnosed Date Lower extremity edema 05/24/2024 Palpitations 05/24/2024 Hyperlipidemia 05/24/2024 Chronic lymphocytic leukemia (CLL), B-cell 03/25 Encounters Date Type Department Care Team Description 04/18/2025 4:00 PM CDT Lab [facility] at [address] [address] Chronic lymphocytic leukemia of B-cell type not [...] on file Legal Sex Female 8:39 AM UI SOFTWARE ENGINEER Gender Identity Not on file Sexual [...] Body Mass Index 28.26 11/01/2024 12:06 PM UI SOFTWARE ENGINEER Plan of Treatment Health Maintenance Due Date Last Done Comments Depression Screening 1960 Hepatitis C Screening 1960 Osteoporosis Screening-Bone Density Scan 1959 DTaP/Tdap/Td Vaccine (1 - Tdap) 1970 Pneumococcal vaccine 65+ (1 of 2 - PCV) 1978 Zoster Vaccine (1 of 2) 1978 Well Visit 65+ 2024 Fall Risk Assessment 02/17/2025 02/18/2024 Breast Cancer Screening-Mammogram 05/01/2025 05/01/2024, 01/29/2023, 01/28/2023, Additional history exists Covid-19 Vaccine (4 - 2024-2 6 season) 2025 06/19/2021, 12/23/2020, 11/30/2020 Influenza Vaccine (#1) 2025 , 07/11/2021, 07/12/2020, [...] remission (HCC) COLONOSCOPY Routine 08/07/2023 1:35 PM UI SOFTWARE ENGINEER from Last 3 Months or Most [...] was last reviewed 2021. Testing performed by: [address] [address] Blood 04/18/2025 4:08 PM CDT 04/18/2025 4:11 PM CDT Barb Harding MD LAB BLOOD ORDERABLES Final Result [facility] [address] [facility] [place] [address] * (ABNORMAL) Differential, auto (04/18/2025 4:08 PM CDT) Neutrophil abs 4.13 1.50 - 6.50 K/cumm Comment:Testing performed by : [address] [address] Imm gran abs 0.11(H) 0.00 - 0.10 K/cumm [facility] Comment:Testing performed by : [address] [address] Lymphocyte abs 1.53 0.80 - 3.30 K/cumm [facility] Comment:Testing performed by : [address] [address] Monocyte abs 0.80 0.20 - 0.80 K/cumm [facility] Comment:Testing performed by : [address] [address] Eosinophil abs 0.00 0.00 - 0.50 K/cumm [facility] Comment:Testing performed by : [address] [address] Basophil abs 0.02 0.00 - 0.10 K/cumm [facility] Comment:Testing performed by : [address] [address] Neutrophil pct 62.7 % [facility] Comment: Interpretive Data Percent cell count reference ranges are not reported, since discordance with absolute values may lead to misinterpretation of CBC data. Current Interpretive Data was last revised on 2018. Testing performed by: [address] [address] Imm gran pct 1.7 % [facility] Comment: Interpretive Data Percent cell count reference ranges are not reported, since discordance with absolute values may lead to misinterpretation of CBC data. Current Interpretive Data was last revised on 2018. Testing performed by: [address] [address] Lymphocyte pct 23.2 % [facility] Comment: Interpretive Data Percent cell count reference ranges are not reported, since discordance with absolute values may lead to misinterpretation of CBC data. Current Interpretive Data was last revised on 2018. Testing performed by: [address] [address] Monocyte pct 12.1 % [facility] Comment: Interpretive Data Percent cell count reference ranges are not reported, since discordance with absolute values may lead to misinterpretation of CBC data. Current Interpretive Data was last revised on 2018. Testing performed by: [address] [address] Eosinophil pct 0.0 % [facility] Comment: Interpretive Data Percent cell count reference ranges are not reported, since discordance with absolute values may lead to misinterpretation of CBC data. Current Interpretive Data was last revised on 2018. Testing performed by: [address] [address] Basophil pct 0.3 % [facility] Comment: Interpretive Data Percent cell count reference ranges are not reported, since discordance with absolute values may lead to misinterpretation of CBC data. Current Interpretive Data was last revised on 2018. Testing performed by: [address] [address] Blood 04/18/2025 4:08 PM CDT 04/18/2025 4:11 PM CDT Barb Harding MD LAB BLOOD ORDERABLES [facility] [address] [facility] Department [place] [address] * CBC with auto differential (04/18/2025 4:08 PM CDT) WBC 6.59 3.80 - 9.90 K/cumm Comment:Testing performed by : [address] [address] Hgb 11.9 11.9 - 15.5 g/dL [facility] Comment:Testing performed by : [address] [address] Hct 35.7 35.6 - 45.5 % [facility] Comment:Testing performed by : [address] [address] Plt 236 150 - 400 K/cumm [facility] Comment:Testing performed by : [address] [address] MPV 9.6 9.1 - 12.3 fL [facility] Comment:Testing performed by : [address] [address] RBC 4.08 3.90 - 5.20 M/cumm [facility] Comment:Testing performed by : [address] [address] MCV 87.5 81.3 - 96.4 fL [facility] Comment:Testing performed by : [address] [address] MCH 29.2 27.1 - 33.3 pg [facility] Comment:Testing performed by : [address] [address] MCHC 33.3 32.3 - 35.7 g/dL [facility]YS ANTONIO Comment:Testing performed by : [address] [address] RDW CV 13.5 11.1 - 14.9 % [facility] ANTONIO Comment:Testing performed by : [address] [address] RDW SD 43.4 35.7 - 48.1 fL [facility] Comment:Testing performed by : [address] [address] NRBC abs 0.00 0.00 - 0.01 K/cumm [facility] Comment:Testing performed by : [address] [address] ANC Prelim 4.13 1.50 - 6.50 K/cumm [facility] Comment: Interpretive Data The rapid ANC is a preliminary automated count and may vary from the final ANC (Neut Abs) reported in the WBC differential that follows. Current interpretive data was last revised 2024. Testing performed by: [address] [address] Blood 04/18/2025 4:08 PM CDT 04/18/2025 4:11 PM CDT Barb Harding MD LAB BLOOD ORDERABLES Final Result Performing Organization Address [facility]/ZIP Co de Phone Number [facility] [address] [facility] Department [place] [address] * Lactate dehydrogenase (LD) (04/18/2025 4:08 PM CDT) Pathologist [facility] Lactate dehydrogenase (LDH) 222 100 - 250 Units/L Comment:Testing performed by : [address] [address] Blood 04/18/2025 4:08 PM CDT 04/18/2025 4:11 PM CDT Barb Harding MD LAB BLOOD ORDERABLES Final Result [facility] [address] [facility] Department [place] [address] * Comprehensive metabolic panel (04/18/2025 4:08 PM CDT) Sodium 143 135 - 145 mmol/L Comment:Testing performed by : [facility], [address] [place] [address]., [address] Potassium, pl 3.7 3.3 - 4.9 mmol/L [facility] Comment:Testing performed by : [address], [place]., [address] Chloride 107 97 - 110 mmol/L [facility] Comment:Testing performed by : [address] [address] CO2 24 22 - 32 mmol/L [facility] Comment:Testing performed by : [address], [place]., [address] Anion gap 12 2 - 15 mmol/L [facility] Comment:Testing performed by : [address] [address] BUN 18 6 - 25 mg/dL [facility] Comment:Testing performed by : [address] [address] Creatinine 0.80 0.60 - 1.10 mg/dL [facility] Comment:Testing performed by : [address] [address] Glucose 90 70 - 199 mg/dL CRYS [...] was last revised 2022. Testing performed by: [address] [address] Calcium 9.6 8.5 - 10.3 mg/dL [facility] Comment:Testing performed by : [address] [address] Bilirubin, total 0.2 0.1 - 1.2 mg/dL [facility] Comment:Testing performed by : [address] [address] Protein, pl 6.5 6.5 - 8.5 g/dL [facility] Comment:Testing performed by : [address] [address] Albumin 4.5 3.5 - 5.0 g/dL [facility] Comment:Testing performed by : [address] [address] Alk phos 58 40 - 130 Units/L [facility] Comment:Testing performed by : [address] [address] ALT 17 7 - 45 Units/L [facility] Comment:Testing performed by : [address] [address] AST 18 10 - 45 Units/L [facility] Comment:Testing performed by : [address] [address] Blood 04/18/2025 4:08 PM CDT 04/18/2025 4:11 PM CDT Barb Harding MD LAB BLOOD ORDERABLES Final Result Performing Organization Address City/State/[facility] Co de Phone Number [place] [address] [facility] Department [place] [address] * Colonoscopy (08/07/2023 1:35 PM UI SOFTWARE ENGINEER) Anatomical Region Laterality Modality Other Historical Provider ENDOSCOPY PROCEDURES Kayy l Result from Last 3 Months or Most Recently Relevant to Health Maintenance Insurance [employer] OOS [facility] PREFERRED [facility] CHOICE [facility] HMO/PPO Address: [address] [address] [place] [address] BLUE ACCESS OOS Advance Directives For more information, please contact: [phone] * Full Code (Latest Code Status on File) Date Activated Date Inactivated Comments 02/18/2024 11:16 AM 02/19/2024 4:39 AM Care Teams Gis Programmer Relationship Specialty Start Date End Date Malissa Soriano MD [address] [facility] [address] [place] [address] PCP - General Family Practice 12/13/24 Barb Harding MD [address] DIV IM BONE MARROW TRANSPLANT, [address] [place] [address] Medical Oncologist/Exterminator Helper Hematology 01/05/24 Tommy Cerda MD [address] [place] [address] Referring Physician Gastroenterology 01/09/24
[2025-06-08 16:01] VITALS: BP 135/85; PULSE 82; RESP 18; TEMP 36.1; O2SAT 100
--- NOTE | 2025-06-08 16:10 | ED_ITS ---
HPI - General Adult General Chief complaint: Urogenital-Female Stated complaint: UTI Source: patient Mode of arrival: ambulatory Limitations: no limitations History of Present Illness HPI narrative: Pt is a 65-year-old male complaint of UTI symptoms. Historically frequency, urgency and pressure. Symptoms began last week, resolved after taking azo and then returned today. 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 Reports last diagnosis of UTI was in February, treated with cephalexin at that time. No additional complaints. Related Data Home Medications ?Medication ?Instructions ?Recorded ?Confirmed ?Last Taken ?Type loratadine 10 mg tablet (Claritin) 10 mg PO DAILY 08/2901/29/25 06/23/23 History cholecalciferol (vitamin D3) 50 50 mcg PO DAILY 06/08/25 06/23/23 History mcg (2,000 unit) capsule multivitamin 1 tablet PO DAILY 03/28/23 0 06/08/25 06/23/23 History venetoclax 100 mg tablet 200 mg PO Q24H 05/24/2505/30 Unknown History (Venclexta) Allergies Allergy/AdvReac Type Severity Reaction Status Date / Time levofloxacin (From Levaquin) Allergy Rash Verified 06/08/25 15:52 Sulfa (Sulfonamide AdvReac Intermediate Diarrhea Verified 06/08/25 15:52 Antibiotics) sulfamethizole AdvReac Intermediate Nausea and Verified 06/08/25 15:52 Vomiting Quinolones AdvReac Mild Itching Verified 06/08/25 15:52 Review of Systems Review of Systems: CONSTITUTIONAL: Denies body aches, fever, chills, or sweats. EYES: Denies visual changes, redness, or discharge. ENT: Denies rhinorrhea, congestion, sore throat, or otalgia. CARDIOVASCULAR: Denies chest pain, palpitations, or edema. RESPIRATORY: Denies cough or dyspnea. GASTROINTESTINAL: Denies abdominal pain, nausea, vomiting, or diarrhea. GENITOURINARY: Denies hematuria. SKIN: Denies rash, itching, or wounds. MUSCULOSKELETAL: Denies back pain, joint pain, or myalgia. NEUROLOGIC: Denies headache, numbness, tingling, or weakness. PSYCH: Denies depression or anxiety. All systems reviewed & are unremarkable except as noted in HPI and below (HPI) [facility] Past Medical History Medical History Osteopenia Injury of left foot midfoot sprain August 2023 Esophageal web Elevated fecal calprotectin Scoliosis (and kyphoscoliosis), idiopathic Kidney stone Surgical History Surgical History History of History of lumbar surgery History of cholecystectomy H/O ovarian cystectomy Family History Family History Sibling Family history of elevated blood lipids Mother Cerebrovascular accident Patient's mother is Father Family history of malignant neoplasm Carcinoma of colon Social History Social History Smoking status: Never smoker Alcohol intake: current Drinks per week: 1 Alcohol use details: 1-2 drinks monthly Substance use: never Substance use type: does not use Do You Feel Safe in your Home?: Yes Lack of Transportation: No Lack of Food: Never True Current Housing: I Have Housing Concerned About Future Housing: No Difficulty Paying Gas/Electric Bills: No Difficulty Paying for Meds: No Currently Unemployed: No Education: Associate Degree Difficulty w/ Childcare or Family Care: No Living arrangements: with family Occupation/Education: occupation 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 HEAD: Normocephalic, atraumatic. EYES: EOMI. No redness or drainage. Conjunctivae normal. NECK: Normal AROM. Supple. CHEST: No respiratory distress. HEART: Regular rate ABDOMEN: Soft, nontender, nondistended, normal active bowel sounds. No CVAT EXTREMITIES: Normal range of motion SKIN: Warm, dry, no rash. Capillary refill normal. Normal skin turgor. NEURO: No focal deficits. Alert and oriented x3. Gait steady. PSYCH: Normal affect. No signs of depression or anxiety. Course Course Level of Care: Express Care Visit Vital Signs Vital signs: Vital Signs Temperature 96.9 F L 06/08/25 16:01 Pulse Rate 82 06/08/25 16:01 Respiratory Rate 18 06/08/25 16:01 Blood Pressure 135/85 06/08/25 16:01 Pulse Oximetry 100 06/08/25 16:01 Oxygen Delivery Room Air 06/08/25 16:01 Temperature 96.9 F L 06/08/25 16:01 Pulse Rate 82 06/08/25 16:01 Respiratory Rate 18 06/08/25 16:01 Blood Pressure 135/85 06/08/25 16:01 Pulse Oximetry 100 06/08/25 16:01 Oxygen Delivery Room Air 06/08/25 16:01 Medical Decision Making Vital Signs Vital Signs: Vital Signs Temperature 96.9 F L 06/08/25 16:01 Pulse Rate 82 06/08/25 16:01 Respiratory Rate 18 06/08/25 16:01 Blood Pressure 135/85 06/08/25 16:01 Pulse Oximetry 100 06/08/25 16:01 Oxygen Delivery Room Air 06/08/25 16:01 Temperature 96.9 F L 06/08/25 16:01 Pulse Rate 82 06/08/25 16:01 Respiratory Rate 18 06/08/25 16:01 Blood Pressure 135/85 06/08/25 16:01 Pulse Oximetry 100 06/08/25 16:01 Oxygen Delivery Room Air 06/08/25 16:01 Lab Data Lab results reviewed: Yes I reviewed the patient's lab results. Labs: Lab Results 06/08/25 Range/Units 16:11 POC Urine Color Yellow POC Urine Clarity Clear POC Urine pH 6.0 POC Ur Specif [place] 1.020 POC Urine Protein Negative (Negative) POC Ur Glucose (UA) Negative (Negative) POC Urine Ketones Negative (Negative) POC Urine Blood 1+ (Negative) POC Urine Nitrite Negative (Negative) POC Urine Bilirubin Negative (Negative) POC Urine Urobilinogen 0.2 POC U Leukocyte Esteras 1+ (Negative) Discharge Plan Discharge Clinical Impression: Frequency of micturition Patient Disposition: Home Condition: Stable Instructions: Antibiotic Form Additional Instructions: Go straight to ER should your symptoms become worse or should any new symptoms develop Patient Language: Citizen Of [place] Prescriptions: New nitrofurantoin monohyd/m-cryst [Macrobid] 100 mg capsule 100 mg PO Q12H 5 Days Qty: 10 0RF Rx Instructions: must administer with a meal/food No Action fluticasone propionate [Flonase Allergy Relief] 50 mcg/actuation spray,suspension 1 spray intranasal DAILY Qty: 16 0RF Rx Instructions: administer into each nostril cholecalciferol (vitamin D3) 50 mcg (2,000 unit) capsule 50 mcg PO DAILY multivitamin Tablet 1 tablet PO DAILY colestipol 1 gram tablet 1 g PO BID 90 Days Qty: 180 3RF Venclexta 100 mg tablet 200 mg PO Q24H loratadine [Claritin] 10 mg Tablet 10 mg PO DAILY azelastine 137 mcg (0.1 %) spray,non-aerosol 2 spray NASAL Q12H PRN (Reason: Nasal Congestion) Qty: 30 1RF Rx Instructions: administer into each nostril fenofibrate nanocrystallized [Tricor] 145 mg tablet 145 mg PO DAILY Qty: 90 1RF lovastatin 40 mg tablet See Rx Instructions .ROUTE .COMPLEX Qty: 90 0RF Dose Instruction: TAKE 1 TABLET BY MOUTH EVERY DAY Rx Instructions: TAKE 1 TABLET BY MOUTH EVERY DAY omeprazole 20 mg capsule,delayed release(DR/EC) 20 mg PO DAILY Qty: 90 1RF Follow-up/Referrals: Dru Soriano MD [Primary Care Provider, Family Practice] - 06/09/25 Time of Disposition: 16:11
[2025-06-08 16:13] LABS: EDUAAPPEAR Clear; EDUABILI Negative (Negative); EDUABLOOD 1+ (Negative); EDUACOLOR1 Yellow; EDUAGLUCOSE Negative (Negative); EDUAKETONE Negative (Negative); EDUALEUKO 1+ (Negative); EDUANITRATE Negative (Negative); EDUAPH 6.0; EDUAPROTEIN Negative (Negative); EDUASPGRAVITY 1.020; EDUAUROBILI 0.2
== END 2025-06-08 16:23 | disposition home or self-care (01) ==
PROVIDERS: Emergency Provider Registered Nurse; PCP Family Medicine
DX: R35.0 Frequency of micturition (principal); M85.80 Other specified disorders of bone density and structure, unspecified site; M41.9 Scoliosis, unspecified
CPT/HCPCS: 81003; 87086; 99213; G0463

== ENCOUNTER 2025-07-12 11:30 | Outpatient (CLI) | payer BC, SELFPAY ==
[2025-07-12 12:23] LABS: Add Urine Microscopic? YES; Appearance Urine Clear (Clear); Glucose Urine UA Negative (Negative); Leukocyte Esterase Ur 1+ LEU/UL (Negative); Need Manual Microscopic Reviewed; Nitrate Urine Positive (Negative); Non Pathogenic Casts 0-2; Specific Grav Ur 1.013 (1.001-1.035)
== END 2025-07-12 11:31 | disposition home or self-care (01) ==
LOC: ANHLAB 11:32
PROVIDERS: PCP Family Medicine; Visit Provider Nurse Practitioner Family
DX: R39.9 Unspecified symptoms and signs involving the genitourinary system (principal)
CPT/HCPCS: 81001; 87086